=== PATIENT | female | born 1980 | race Caucasian/White ===

== ENCOUNTER 2016-10-24 13:51 | Inpatient (IN) | payer OTHER ==
[2016-10-24 14:40] VITALS: BMI 21.7
[2016-10-24] MEDS ORDERED: MAGNESIUM HYDROX 2400MG/30ML ORAL SUSPENSION 30 ML CUP PO PRN (18:32)
[2016-10-24] MEDS ORDERED: MENTHOL/PHENOL 1 EACH UD MM PRN (18:32)
[2016-10-24] MEDS ORDERED: MAGNESIUM CITRATE 300 ML BOTTLE PO PRN (18:32)
[2016-10-24] MEDS ORDERED: P-EPHED 60MG/TRIPROLIDI 2.5MG TABLET PO PRN (18:32)
[2016-10-24] MEDS ORDERED: NICOTINE POLACRILEX 4 MG GUM BC PRN (18:32)
[2016-10-24] MEDS ORDERED: ACETAMINOPHEN 325 MG TABLET (FP) PO PRN (18:32)
[2016-10-24] MEDS ORDERED: LOPERAMIDE HCL 2 MG CAPSULE PO PRN (18:32)
[2016-10-24] MEDS ORDERED: MAG HYDROX/AL HYDROX/SIMETH 30 ML UNIT-DOSE CUP PO PRN (18:32)
[2016-10-24] MEDS ORDERED: hydrOXYzine PAMOATE 50 MG CAPSULE (FP) PO PRN (18:32)
[2016-10-24] MEDS ORDERED: guaiFENesin/D-METHORPHAN HB 10 ML UNIT-DOSE CUPS PO PRN (18:32)
--- NOTE | 2016-10-24 18:32 | HP ---
Admission [facility] Chief Complaint: WITHDRAWAL SX COMPLETED INTERFATE DETOX COMPLETED 10/14/16 Allergies/Adverse Reactions: Allergies Allergy/AdvReac Type Severity Reaction Status Date / Time No Known Allergies Allergy Verified 10/24/16 16:51 History of Present Illness: 35 YEARS OLD FEMALE WITH LONG HISTORY OF ALCOHOL, OPIATE XANAX NICOTINE DEPENDENCE HAS HEPATITIS C IS ADMITTED TO REHAB Exam Limitations: No Limitations - Ebola screening Have you traveled outside of the country in the last 21 days: No Have you had contact with anyone from an Ebola affected area: No Have you been sick,other than usual withdrawal symptoms: Yes Do you have a fever: No - Review of Systems Constitutional: Weight Stable EENT: reports: No Symptoms Reported Respiratory: reports: No Symptoms reported Cardiac: reports: No Symptoms Reported GI: reports: No Symptoms Reported : reports: No Symptoms Reported Musculoskeletal: reports: No Symptoms Reported Integumentary: reports: No Symptoms Reported Neuro: reports: No Symptoms reported Endocrine: reports: No Symptoms Reported Hematology: reports: No Symptoms Reported Psychiatric: reports: Judgement Intact, Mood/Affect Appropiate, Orientated x3 Other Systems: Reviewed and Negative Patient History - Patient Medical History Hx Anemia: Yes (No meds.; tries to manage through diet.) Hx Asthma: No Hx Chronic Obstructive Pulmonary Disease (COPD): No Hx Cancer: No Hx Cardiac Disorders: No Hx Congestive Heart Failure: No Hx Hypertension: No Hx Hypercholesterolemia: No Hx Pacemaker: No HX Cerebrovascular Accident: No Hx Seizures: Yes (drug related once in 07/2016) Hx Dementia: No Hx Diabetes: No Hx Gastrointestinal Disorders: No Hx Liver Disease: Yes (Hep C, Treated 2005, but relapsed after.) Hx Genitourinary Disorders: No Hx Sexually Transmitted Disorders: No Hx Renal Disease (ESRD): No Hx Thyroid Disease: No Hx Human Immunodeficiency Virus (HIV): No (Last tested: approx. 2 months ago: NEGATIVE.) Hx Hepatitis C: Yes (2005, treated with Interferon and ribavirin, relapsed after.) Hx Depression: Yes (No meds.) Hx Suicide Attempt: No (PATIENT DENIES CURRENT SI / HI.) Hx Bipolar Disorder: No Hx Schizophrenia: No - Patient Surgical History Past Surgical History: Yes Hx Neurologic Surgery: No Hx Cataract Extraction: No Hx Cardiac Surgery: No Hx Lung Surgery: No Hx Breast Surgery: No Hx Breast Biopsy: No Hx Abdominal Surgery: No Hx Appendectomy: No Hx Cholecystectomy: No Hx Genitourinary Surgery: No Hx Section: No Hx Orthopedic Surgery: Yes (lt. hand surgery tendon repair (age 17), I&D of abcesses (age 27).) Hx Hysterectomy: No Anesthesia Reaction: No - PPD History Previous Implant?: Yes Documented Results: Negative w/o proof Implanted On Prior [facility] Admission?: Yes Date: 03/28/12 Results: 0 mm PPD to be Administered?: Yes - Reproductive History Patient is a Female of Child Bearing Age (11 -55 yrs old): Yes Last Menstrual Period: 09/14/16 Patient : No - Smoking Cessation Smoking history: Current every day smoker Have you smoked in the past 12 months: Yes Aproximately how many cigarettes per day: 20 Cigars Per Day: 0 Hx Chewing Tobacco Use: No Initiated information on smoking cessation: Yes 'Breaking Loose' booklet given: 10/24/16 - Substance & Tx. History Hx Alcohol Use: Yes Hx Substance Use: Yes Substance Use Type: Alcohol, Heroin, Opiates, Tranquilizers Hx Substance Use Treatment: Yes - Substances Abused Alcohol Route: Oral Frequency: Daily Amount used: 1/2 WHISKY Age of first use: 21 Date of Last Use: 10/14/16 Alprazolam (Xanax) Route: Oral Frequency: Daily Amount used: 12 MG Age of first use: 31 Date of Last Use: 10/10/16 Family Disease History - Family Disease History Family Disease History: Diabetes: Father, Heart Disease: Grandparent (HTN.) Admission Physical Exam S - Vital Signs Vital Signs: Vital Signs - 24 hr 10/24/16 14:33 Temperature 97.1 F L Pulse Rate 99 H Respiratory 20 Rate Blood Pressure 111/72 - Physical General Appearance: Yes: Nourished, Appropriately Dressed HEENTM: Yes: Hearing grossly Normal, Normal ENT Inspection, Normocephalic, Normal Voice Respiratory: Yes: Chest Non-Tender, Lungs Clear, Normal Breath Sounds, No Respiratory Distress, No Accessory Muscle Use Neck: Yes: Supple, Trachea in good position Breast: Yes: Breasts Symetrical Cardiology: Yes: Regular Rhythm, Regular Rate, S1, S2 Abdominal: Yes: Non Tender, Soft Genitourinary: Yes: Within Normal Limits Back: Yes: Normal Inspection Musculoskeletal: Yes: full range of Motion, Gait Steady Extremities: Yes: Normal Inspection, Normal Range of Motion, Non-Tender Neurological: Yes: Fully Oriented, Alert, Motor Strength 5/5, Normal Mood/Affect , Normal Response Integumentary: Yes: Warm Lymphatic: Yes: Within Normal Limits - Diagnostic (1) Alcohol dependence with uncomplicated withdrawal Current Visit: Yes Status: Acute (2) Hep C w/o coma, chronic Current Visit: Yes Status: Chronic (3) Nicotine dependence Current Visit: Yes Status: Chronic Qualifiers: Nicotine product type: cigarettes Substance use status: in withdrawal Qualified Code(s): F17.213 - Nicotine dependence, cigarettes, with withdrawal (4) Encounter for monitoring Suboxone maintenance therapy Current Visit: Yes Status: Acute Comment: 8-2 MG X 2 FILMS DAILY VERIFIED BY PHARMACY LABLE Cleared for Admission [facility] - Detox or Rehab [facility] Level of Care: Observation Bed Detox Regimen/Protocol: Not Applicable Claeared for Rehab Admission: Yes [facility] Breath Alcohol Content Breath Alcohol Content: 0 Urine Pregancy Test - Result Urine Test Results: Negative- NO Line Present Urine Drug Screen - Results Drug Screen Negative: No Urine Drug Screen Results: BZO-Benzodiazepines, MTD-Methadone
[2016-10-24] MEDS: THIAMINE HCL 100 MG TABLET (FP) PO SCH (21:06)
[2016-10-24] MEDS: traZODone HCL 50 MG TABLET (FP) PO SCH (21:06)
[2016-10-24 22:47] LABS: URINE APPEARANCE CLOUDY; URINE BILIRUBIN NEGATIVE (NEGATIVE); URINE BLOOD NEGATIVE (NEGATIVE); URINE COLOR YELLOW; URINE GLUCOSE (UA) NEGATIVE (NEGATIVE); URINE KETONE NEGATIVE (NEGATIVE); URINE NITRITE NEGATIVE (NEGATIVE); URINE PROTEIN NEGATIVE (NEGATIVE); URINE UROBILINOGEN NEGATIVE E.U./dl (0.2-1.0)
[2016-10-24 22:52] LABS: URINE LEUK ESTERASE 2+ (NEGATIVE)
[2016-10-24 22:54] LABS: URINE BACTERIA RARE /hpf (NONE SEEN); URINE HYALINE CAST 1 /lpf; URINE MUCUS RARE; URINE RBC 1 /hpf (0-3); URINE WBC 2 /hpf (3-5)
[2016-10-25] MEDS: NICOTINE 21 MG/24 HOURS TOPICAL PATCH TD SCH (10:01)
[2016-10-25] MEDS: PRENATAL VITAMINS W/ FOLIC ACID TABLET (FP) PO SCH (10:02)
[2016-10-25] MEDS: BUPRENORPHINE/NALOXONE 8 MG/2 MG FILM PACKET SL SCH (10:02)
--- NOTE | 2016-10-25 14:14 | EKG ---
Test Reason : Blood Pressure : / mmHG Vent. Rate : 072 BPM Atrial Rate : 072 BPM P-R Int : 122 ms QRS Dur : 084 ms QT Int : 392 ms P-R-T Axes : -16 072 040 degrees QTc Int : 429 ms NORMAL SINUS RHYTHM NORMAL ECG WHEN COMPARED WITH ECG OF 29-MAR-2012 11:27, NO SIGNIFICANT CHANGE WAS FOUND Confirmed by MARYANN RODRIGUEZ MD ([id number]) on 10/25/2016 2:14:11 PM Referred By: Tabitha Dee Confirmed By:MARYANN RODRIGUEZ MD
[2016-10-25 15:01] LABS: MCH 29.5 pg (25.7-33.7); MEAN CELL VOLUME 86.8 fl (80-96); MEAN PLT VOLUME 8.2 fl (7.5-11.1); PLATELET COUNT 237 K/MM3 (134-434); RDW 14.6 % (11.6-15.6); WHITE BLOOD COUNT 5.3 K/mm3 (4.0-10.0)
[2016-10-25 15:44] LABS: ALBUMIN 3.4 g/dl (3.4-5.0); ALK PHOS 61 U/L (45-117); ANION GAP 10 (8-16); BILIRUBIN,TOTAL 0.4 mg/dL (0.2-1.0); CALCIUM 8.5 mg/dL (8.5-10.1); CO2 23 mmol/L (21-32); CREATININE 0.8 mg/dL (0.55-1.02); GLUCOSE,RANDOM 106 mg/dL (74-106); SGOT/AST 15 U/L (15-37); SGPT/ALT 27 U/L (12-78); TOT PROT 7.3 g/dl (6.4-8.2)
[2016-10-25] MEDS: traZODone HCL 50 MG TABLET (FP) PO SCH (21:08)
[2016-10-25] MEDS: THIAMINE HCL 100 MG TABLET (FP) PO SCH (21:08)
[2016-10-26] MEDS: PRENATAL VITAMINS W/ FOLIC ACID TABLET (FP) PO SCH (09:51)
[2016-10-26] MEDS: NICOTINE 21 MG/24 HOURS TOPICAL PATCH TD SCH (09:52)
[2016-10-26] MEDS: BUPRENORPHINE/NALOXONE 8 MG/2 MG FILM PACKET SL SCH (09:52)
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
[2016-10-26] MEDS: diphenhydrAMINE HCL 50 MG CAPSULE PO PRN (21:11)
[2016-10-26] MEDS: traZODone HCL 50 MG TABLET (FP) PO SCH (21:11)
[2016-10-26] MEDS: THIAMINE HCL 100 MG TABLET (FP) PO SCH (21:13)
[2016-10-27] MEDS: NICOTINE 21 MG/24 HOURS TOPICAL PATCH TD SCH (09:48)
[2016-10-27] MEDS: BUPRENORPHINE/NALOXONE 8 MG/2 MG FILM PACKET SL SCH (09:48)
[2016-10-27] MEDS: PRENATAL VITAMINS W/ FOLIC ACID TABLET (FP) PO SCH (09:48)
[2016-10-27] MEDS: diphenhydrAMINE HCL 50 MG CAPSULE PO PRN (21:19)
[2016-10-27] MEDS: THIAMINE HCL 100 MG TABLET (FP) PO SCH (21:19)
[2016-10-27] MEDS: traZODone HCL 50 MG TABLET (FP) PO SCH (21:19)
[2016-10-28] MEDS: NICOTINE 21 MG/24 HOURS TOPICAL PATCH TD SCH (09:53)
[2016-10-28] MEDS: PRENATAL VITAMINS W/ FOLIC ACID TABLET (FP) PO SCH (09:53)
[2016-10-28] MEDS: IBUPROFEN 400 MG TABLET (FP) PO PRN (09:53)
[2016-10-28] MEDS: BUPRENORPHINE/NALOXONE 8 MG/2 MG FILM PACKET SL SCH (09:53)
[2016-10-28] MEDS ORDERED: PT OWN MED DRAWER 7, Y5N ONE (16:10)
[2016-10-28] MEDS: traZODone HCL 50 MG TABLET (FP) PO SCH (21:07)
[2016-10-28] MEDS: THIAMINE HCL 100 MG TABLET (FP) PO SCH (21:07)
[2016-10-29] MEDS: NICOTINE 21 MG/24 HOURS TOPICAL PATCH TD SCH (10:00)
[2016-10-29] MEDS: PRENATAL VITAMINS W/ FOLIC ACID TABLET (FP) PO SCH (10:00)
[2016-10-29] MEDS: BUPRENORPHINE/NALOXONE 8 MG/2 MG FILM PACKET SL SCH (10:00)
[2016-10-29] MEDS: IBUPROFEN 400 MG TABLET (FP) PO PRN (10:02)
[2016-10-29] MEDS: THIAMINE HCL 100 MG TABLET (FP) PO SCH (21:02)
[2016-10-29] MEDS: traZODone HCL 50 MG TABLET (FP) PO SCH (21:03)
[2016-10-29] MEDS: diphenhydrAMINE HCL 50 MG CAPSULE PO PRN (21:04)
[2016-10-30] MEDS: PRENATAL VITAMINS W/ FOLIC ACID TABLET (FP) PO SCH (09:57)
[2016-10-30] MEDS: NICOTINE 21 MG/24 HOURS TOPICAL PATCH TD SCH (09:58)
[2016-10-30] MEDS: BUPRENORPHINE/NALOXONE 8 MG/2 MG FILM PACKET SL SCH (09:58)
[2016-10-30] MEDS: THIAMINE HCL 100 MG TABLET (FP) PO SCH (21:11)
[2016-10-30] MEDS: traZODone HCL 50 MG TABLET (FP) PO SCH (21:11)
[2016-10-30] MEDS: diphenhydrAMINE HCL 50 MG CAPSULE PO PRN (21:12)
[2016-10-30] MEDS ORDERED: PT OWN MED DRAWER 7, Y5N ONE (21:56)
[2016-10-31] MEDS: NICOTINE 21 MG/24 HOURS TOPICAL PATCH TD SCH (10:24)
[2016-10-31] MEDS: BUPRENORPHINE/NALOXONE 8 MG/2 MG FILM PACKET SL SCH (10:24)
[2016-10-31] MEDS: PRENATAL VITAMINS W/ FOLIC ACID TABLET (FP) PO SCH (10:24)
[2016-10-31] MEDS: COLLOIDAL OATMEAL 1 BAR EACH TP PRN (21:12)
[2016-10-31] MEDS: THIAMINE HCL 100 MG TABLET (FP) PO SCH (21:13)
[2016-10-31] MEDS: diphenhydrAMINE HCL 50 MG CAPSULE PO PRN (21:13)
[2016-10-31] MEDS: traZODone HCL 50 MG TABLET (FP) PO SCH (21:13)
[2016-10-31] MEDS ORDERED: PT OWN MED DRAWER 7, Y5N ONE (23:11)
[2016-11-01] MEDS: NICOTINE 14 MG/24 HOURS TOPICAL PATCH TD SCH (10:05)
[2016-11-01] MEDS: BUPRENORPHINE/NALOXONE 8 MG/2 MG FILM PACKET SL SCH (10:05)
[2016-11-01] MEDS: PRENATAL VITAMINS W/ FOLIC ACID TABLET (FP) PO SCH (10:05)
[2016-11-01] MEDS: traZODone HCL 50 MG TABLET (FP) PO SCH (21:10)
[2016-11-01] MEDS: THIAMINE HCL 100 MG TABLET (FP) PO SCH (21:10)
[2016-11-01] MEDS: diphenhydrAMINE HCL 50 MG CAPSULE PO PRN (21:11)
[2016-11-01] MEDS ORDERED: PT OWN MED DRAWER 7, Y5N ONE (23:41)
[2016-11-02] MEDS: BUPRENORPHINE/NALOXONE 8 MG/2 MG FILM PACKET SL SCH (10:02)
[2016-11-02] MEDS: NICOTINE 14 MG/24 HOURS TOPICAL PATCH TD SCH (10:02)
[2016-11-02] MEDS: PRENATAL VITAMINS W/ FOLIC ACID TABLET (FP) PO SCH (10:02)
[2016-11-02] MEDS ORDERED: PT OWN MED DRAWER 7, Y5N ONE ×2 (12:12→23:29)
[2016-11-02] MEDS: traZODone HCL 50 MG TABLET (FP) PO SCH (21:12)
[2016-11-02] MEDS: THIAMINE HCL 100 MG TABLET (FP) PO SCH (21:12)
[2016-11-02] MEDS: diphenhydrAMINE HCL 50 MG CAPSULE PO PRN (21:12)
[2016-11-03] MEDS: NICOTINE 14 MG/24 HOURS TOPICAL PATCH TD SCH (09:37)
[2016-11-03] MEDS: BUPRENORPHINE/NALOXONE 8 MG/2 MG FILM PACKET SL SCH (09:37)
[2016-11-03] MEDS: PRENATAL VITAMINS W/ FOLIC ACID TABLET (FP) PO SCH (09:37)
[2016-11-03] MEDS: THIAMINE HCL 100 MG TABLET (FP) PO SCH (21:02)
[2016-11-03] MEDS: traZODone HCL 50 MG TABLET (FP) PO SCH (21:02)
[2016-11-03] MEDS: diphenhydrAMINE HCL 50 MG CAPSULE PO PRN (21:03)
[2016-11-04] MEDS: PRENATAL VITAMINS W/ FOLIC ACID TABLET (FP) PO SCH (09:45)
[2016-11-04] MEDS: NICOTINE 14 MG/24 HOURS TOPICAL PATCH TD SCH (09:45)
[2016-11-04] MEDS: BUPRENORPHINE/NALOXONE 8 MG/2 MG FILM PACKET SL SCH (09:46)
[2016-11-04] MEDS: THIAMINE HCL 100 MG TABLET (FP) PO SCH (21:02)
[2016-11-04] MEDS: diphenhydrAMINE HCL 50 MG CAPSULE PO PRN (21:02)
[2016-11-04] MEDS: traZODone HCL 50 MG TABLET (FP) PO SCH (21:02)
[2016-11-05] MEDS: PRENATAL VITAMINS W/ FOLIC ACID TABLET (FP) PO SCH (09:39)
[2016-11-05] MEDS: NICOTINE 14 MG/24 HOURS TOPICAL PATCH TD SCH (09:40)
[2016-11-05] MEDS: BUPRENORPHINE/NALOXONE 8 MG/2 MG FILM PACKET SL SCH (09:40)
[2016-11-05] MEDS: traZODone HCL 50 MG TABLET (FP) PO SCH (21:06)
[2016-11-05] MEDS: THIAMINE HCL 100 MG TABLET (FP) PO SCH (21:07)
[2016-11-05] MEDS: diphenhydrAMINE HCL 50 MG CAPSULE PO PRN (21:07)
[2016-11-06] MEDS: NICOTINE 14 MG/24 HOURS TOPICAL PATCH TD SCH (09:55)
[2016-11-06] MEDS: BUPRENORPHINE/NALOXONE 8 MG/2 MG FILM PACKET SL SCH (09:55)
[2016-11-06] MEDS: PRENATAL VITAMINS W/ FOLIC ACID TABLET (FP) PO SCH (09:55)
[2016-11-06] MEDS: THIAMINE HCL 100 MG TABLET (FP) PO SCH (21:02)
[2016-11-06] MEDS: traZODone HCL 50 MG TABLET (FP) PO SCH (21:02)
[2016-11-06] MEDS: diphenhydrAMINE HCL 50 MG CAPSULE PO PRN (21:03)
[2016-11-07] MEDS: NICOTINE 14 MG/24 HOURS TOPICAL PATCH TD SCH (09:56)
[2016-11-07] MEDS: PRENATAL VITAMINS W/ FOLIC ACID TABLET (FP) PO SCH (09:56)
[2016-11-07] MEDS: BUPRENORPHINE/NALOXONE 8 MG/2 MG FILM PACKET SL SCH (09:56)
[2016-11-07] MEDS: COLLOIDAL OATMEAL 1 BAR EACH TP PRN (12:44)
[2016-11-07] MEDS: diphenhydrAMINE HCL 50 MG CAPSULE PO PRN (21:01)
[2016-11-07] MEDS: traZODone HCL 50 MG TABLET (FP) PO SCH (21:01)
[2016-11-07] MEDS: THIAMINE HCL 100 MG TABLET (FP) PO SCH (21:01)
[2016-11-08] MEDS: NICOTINE 14 MG/24 HOURS TOPICAL PATCH TD SCH (09:53)
[2016-11-08] MEDS: BUPRENORPHINE/NALOXONE 8 MG/2 MG FILM PACKET SL SCH (09:54)
[2016-11-08] MEDS: PRENATAL VITAMINS W/ FOLIC ACID TABLET (FP) PO SCH (09:54)
[2016-11-08] MEDS: traZODone HCL 50 MG TABLET (FP) PO SCH (21:04)
[2016-11-08] MEDS: THIAMINE HCL 100 MG TABLET (FP) PO SCH (21:05)
[2016-11-08] MEDS: diphenhydrAMINE HCL 50 MG CAPSULE PO PRN (21:05)
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
[2016-11-09] MEDS: PRENATAL VITAMINS W/ FOLIC ACID TABLET (FP) PO SCH (10:13)
[2016-11-09] MEDS: NICOTINE 14 MG/24 HOURS TOPICAL PATCH TD SCH (10:13)
[2016-11-09] MEDS: BUPRENORPHINE/NALOXONE 8 MG/2 MG FILM PACKET SL SCH (10:14)
[2016-11-09] MEDS: BACITRACIN 0.9 GM PACKET TP SCH (10:14)
[2016-11-09] MEDS: diphenhydrAMINE HCL 50 MG CAPSULE PO PRN (21:09)
[2016-11-09] MEDS: THIAMINE HCL 100 MG TABLET (FP) PO SCH (21:09)
[2016-11-09] MEDS: traZODone HCL 50 MG TABLET (FP) PO SCH (21:09)
[2016-11-10] MEDS: BUPRENORPHINE/NALOXONE 8 MG/2 MG FILM PACKET SL SCH (09:51)
[2016-11-10] MEDS: NICOTINE 14 MG/24 HOURS TOPICAL PATCH TD SCH (09:51)
[2016-11-10] MEDS: BACITRACIN 0.9 GM PACKET TP SCH (09:51)
[2016-11-10] MEDS: PRENATAL VITAMINS W/ FOLIC ACID TABLET (FP) PO SCH (09:51)
[2016-11-10] MEDS: THIAMINE HCL 100 MG TABLET (FP) PO SCH (21:04)
[2016-11-10] MEDS: diphenhydrAMINE HCL 50 MG CAPSULE PO PRN (21:04)
[2016-11-10] MEDS: traZODone HCL 50 MG TABLET (FP) PO SCH (21:04)
[2016-11-10] MEDS ORDERED: PT OWN MED DRAWER 7, Y5N ONE (21:59)
[2016-11-11] MEDS: NICOTINE 14 MG/24 HOURS TOPICAL PATCH TD SCH (09:34)
[2016-11-11] MEDS: BUPRENORPHINE/NALOXONE 8 MG/2 MG FILM PACKET SL SCH (09:34)
[2016-11-11] MEDS: BACITRACIN 0.9 GM PACKET TP SCH (09:34)
[2016-11-11] MEDS: PRENATAL VITAMINS W/ FOLIC ACID TABLET (FP) PO SCH (09:34)
[2016-11-11] MEDS: traZODone HCL 50 MG TABLET (FP) PO SCH (21:02)
[2016-11-11] MEDS: diphenhydrAMINE HCL 50 MG CAPSULE PO PRN (21:02)
[2016-11-11] MEDS: THIAMINE HCL 100 MG TABLET (FP) PO SCH (21:02)
[2016-11-12 07:00] VITALS: BP 98/63; PULSE 61; TEMP 98.4
[2016-11-12] MEDS: BACITRACIN 0.9 GM PACKET TP SCH (09:11)
[2016-11-12] MEDS: BUPRENORPHINE/NALOXONE 8 MG/2 MG FILM PACKET SL SCH (09:12)
[2016-11-12] MEDS: PRENATAL VITAMINS W/ FOLIC ACID TABLET (FP) PO SCH (09:12)
[2016-11-12] MEDS: NICOTINE 14 MG/24 HOURS TOPICAL PATCH TD SCH (09:12)
--- NOTE | 2016-11-12 09:44 | PN ---
[id number] 61 98/63 Date of Session: 11/12/16 Chief Complaint:: Discharge visit HPI: PATIENT ADDRESSED OPIOID AND ANXIOLYTIC DEPENDENCE COMORBID WITH SUBSTANCE INDUCED MOOD DISORDER. ROS: Hep C. Current Side Effect: No Lab tests ordered: No Lab tests reviewed: Yes Provider note:: Patient completed this program today.She has met her treatment goals and will continue to address her issues on outpatient basis.Patient continues to find that Trazodone 150 mg po hs helps to reduce her sleeping difficulties,script for 30 days provided.Patient will continue Suboxone 8 mg s/ l bid.Therapy provided focusing on coping skills,support system utilization to maintain recovery. Patient is stable for discharge today. Total face to face time:: 30 Mental Status Exam - Mental Status Exam Alert and Oriented to: Time, Place, Person Cognitive Function: Grossly Intact Patient Appearance: Well Groomed Mood: Euthymic Affect: Mood Congruent Patient Behavior: Cooperative Speech Pattern: Clear Voice Loudness: Normal Thought Process: Goal Oriented Thought Disorder: Not Present Hallucinations: Denies Suicidal Ideation: Denies Homicidal Ideation: Denies Insight/Judgement: Fair Sleep: Fair Appetite: Good Muscle strength/Tone: Normal Gait/Station: Normal Psychiatric Treatment Plan - Problem List (1) Encounter for monitoring Suboxone maintenance therapy Comment: 8-2 MG X 2 FILMS DAILY VERIFIED BY PHARMACY LABLE (2) Nicotine dependence Qualifiers: Nicotine product type: cigarettes Substance use status: in withdrawal Qualified Code(s): F17.213 - Nicotine dependence, cigarettes, with withdrawal
== END 2016-11-12 09:20 | disposition home or self-care (01) | DRG 772 ==
LOC: YASAS 13:51 → Y3E 18:24
PROVIDERS: ADMIT Psychiatry & Neurology Psychiatry; ATTEND Psychiatry & Neurology Psychiatry
PROC: HZ42ZZZ Group Counseling for Substance Abuse Treatment, Cognitive-Behavioral (ICD-10-PCS; principal; 2016-11-12)
DX: F11.23 Opioid dependence with withdrawal (principal); F13.230 Sedative, hypnotic or anxiolytic dependence with withdrawal, uncomplicated; F17.213 Nicotine dependence, cigarettes, with withdrawal; F19.24 Other psychoactive substance dependence with psychoactive substance-induced mood disorder; B18.2 Chronic viral hepatitis C; Z79.899 Other long term (current) drug therapy
CPT/HCPCS: 36415; 80053; 81003; 81015; 85027; 86593; 93005; 93010

== ENCOUNTER 2017-02-07 12:34 | Inpatient (IN) | payer OTHER ==
[2017-02-07 14:06] VITALS: BMI 23.4
--- NOTE | 2017-02-07 17:53 | HP ---
COWS - Scale Resting Pulse: 1= ME 81-100 Sweatin= Chills/Flushing Restless Observation: 3= Extraneous Movement Pupil Size: 0= Normal to Room Light Bone or Joint Aches: 2= Severe Diffuse Aches Runny Nose/ Eye Tearin= Runny Nose/Eyes GI Upset > 30mins: 1= Stomach Cramp Tremor Observation: 2= Slight Tremor Visible Yawning Observation: 0= None Anxiety or Irritability: 2=Irritable/Anxious Goose Flesh Skin: 0=Smooth Skin COWS Score: 14 CIWA Score - CIWA Score Nausea/Vomitin-Mild Nausea/No Vomiting Muscle Tremors: 4-Moderate,w/Arms Extend Anxiety: 4-Mod. Anxious/Guarded Agitation: 4-Moderately Restless Paroxysmal Sweats: 1-Minimal Palms Moist Orientation: 0-Oriented Tacttile Disturbances: 0-None Auditory Disturbances: 0-None Visual Disturbances: 0-None Headache: 0-None Present CIWA-Ar Total Score: 14 Admission ROS S - HPI Chief Complaint: WITHDRAWAL SX Allergies/Adverse Reactions: Allergies Allergy/AdvReac Type Severity Reaction Status Date / Time No Known Allergies Allergy Verified 02/07/17 15:07 History of Present Illness: 36 YEARS OLD FEMALE WITH LONG HISTORY OF OPIUM COCAINE MARIJUANA XANAX NICOTINE DEPENDENCE, HAS HEPATITIS C TREATED AND DEPRESSION IS ADMITTED TO DETOX Exam Limitations: No Limitations - Ebola screening Have you traveled outside of the country in the last 21 days: No Have you had contact with anyone from an Ebola affected area: No Have you been sick,other than usual withdrawal symptoms: No Do you have a fever: No - Review of Systems Constitutional: Chills, Changes in sleep, Weight Stable Respiratory: reports: No Symptoms reported Cardiac: reports: No Symptoms Reported GI: reports: Nausea, Poor Fluid Intake, Abdominal cramping : reports: No Symptoms Reported Musculoskeletal: reports: Back Pain, Joint Pain, Muscle Pain, Neck Pain Integumentary: reports: Change in Color (LEFT WRIST) Neuro: reports: Seizure (BENZO WITHDRAWAL 2014), Tremors Endocrine: reports: No Symptoms Reported Hematology: reports: No Symptoms Reported Psychiatric: reports: Judgement Intact, Orientated x3, Anxious, Depressed Other Systems: Reviewed and Negative Patient History - Patient Medical History Hx Anemia: Yes (No meds.; tries to manage through diet.) Hx Asthma: No Hx Chronic Obstructive Pulmonary Disease (COPD): No Hx Cancer: No Hx Cardiac Disorders: No Hx Congestive Heart Failure: No Hx Hypertension: No Hx Hypercholesterolemia: No Hx Pacemaker: No HX Cerebrovascular Accident: No Hx Seizures: Yes (2014) Hx Dementia: No Hx Diabetes: No Hx Gastrointestinal Disorders: No Hx Liver Disease: Yes (Hep C, Treated 2005, but relapsed after.) Hx Genitourinary Disorders: No Hx Sexually Transmitted Disorders: No Hx Renal Disease (ESRD): No Hx Thyroid Disease: No Hx Human Immunodeficiency Virus (HIV): No (Last tested: approx. 2 months ago: NEGATIVE.) Hx Hepatitis C: Yes (2005, treated with Interferon and ribavirin, relapsed after.) Hx Depression: Yes Hx Suicide Attempt: No Hx Bipolar Disorder: No Hx Schizophrenia: No - Patient Surgical History Past Surgical History: Yes Hx Neurologic Surgery: No Hx Cataract Extraction: No Hx Cardiac Surgery: No Hx Lung Surgery: No Hx Breast Surgery: No Hx Breast Biopsy: No Hx Abdominal Surgery: No Hx Appendectomy: No Hx Cholecystectomy: No Hx Genitourinary Surgery: No Hx Section: No Hx Orthopedic Surgery: Yes (lt. hand surgery tendon repair (age 17), I&D of abcesses (age 27).) Hx Hysterectomy: No Anesthesia Reaction: No - PPD History Previous Implant?: Yes Documented Results: Positive w/proof Implanted On Prior [facility] Admission?: Yes Date: 10/26/16 Results: 0 mm PPD to be Administered?: No - Reproductive History Patient is a Female of Child Bearing Age (11 -55 yrs old): Yes Last Menstrual Period: 01/23/17 Patient : No - Smoking Cessation Smoking history: Current every day smoker Have you smoked in the past 12 months: Yes Aproximately how many cigarettes per day: 10 Cigars Per Day: 0 Hx Chewing Tobacco Use: No Initiated information on smoking cessation: Yes 'Breaking Loose' booklet given: 02/07/17 - Substance & Tx. History Hx Alcohol Use: No Hx Substance Use: Yes Substance Use Type: Cocaine, Heroin, Marijuana, Tranquilizers Hx Substance Use Treatment: Yes [facility] - Substances Abused Heroin Route: Injection Frequency: Daily Amount used: 10 bags Age of first use: 21 Date of Last Use: 02/07/17 Cocaine Route: Injection Frequency: 3-6 times per week Amount used: $20 Age of first use: 21 Date of Last Use: 02/07/17 Alcohol Route: Oral Frequency: 3-6 times per week Amount used: bulmaro(1/2 -1 pint)/beer(2-4 cans-12 oz) Age of first use: 21 Date of Last Use: 02/07/17 Alprazolam (Xanax) Route: Oral Frequency: Daily Amount used: 6 MG Age of first use: 32 Date of Last Use: 02/07/17 Family Disease History - Family Disease History Family Disease History: Diabetes: Father, Heart Disease: Grandparent (HTN.) Admission Physical Exam [facility] - Vital Signs Vital Signs: Vital Signs - 24 hr 02/07/17 14:03 Temperature 96.0 F L Pulse Rate 83 Respiratory 18 Rate Blood Pressure 94/66 - Physical General Appearance: Yes: Appropriately Dressed, Mild Distress, Thin, Tremorous, Irritable, Sweating, Anxious HEENTM: Yes: Hearing grossly Normal, Normal ENT Inspection, Normocephalic, Normal Voice Respiratory: Yes: Chest Non-Tender, Lungs Clear, Normal Breath Sounds, No Respiratory Distress, No Accessory Muscle Use Neck: Yes: Supple, Trachea in good position Breast: Yes: Breasts Symetrical Cardiology: Yes: Regular Rhythm, Regular Rate, S1, S2 Abdominal: Yes: Non Tender, Soft Genitourinary: Yes: Within Normal Limits Back: Yes: Normal Inspection Musculoskeletal: Yes: full range of Motion, Gait Steady, Back pain, Muscle Pain Extremities: Yes: Normal Range of Motion, Non-Tender, Tremors Neurological: Yes: Fully Oriented, Alert, Motor Strength 5/5, Normal Mood/Affect , Normal Response Integumentary: Yes: Warm, Track Gray Lymphatic: Yes: Within Normal Limits - Diagnostic (1) Hep C w/o coma, chronic Current Visit: Yes Status: Resolved (2) Nicotine dependence Current Visit: Yes Status: Acute Qualifiers: Nicotine product type: cigarettes Substance use status: in withdrawal Qualified Code(s): F17.213 - Nicotine dependence, cigarettes, with withdrawal (3) Opioid dependence with withdrawal Current Visit: Yes Status: Acute (4) Sedative, hypnotic or anxiolytic dependence with withdrawal, uncomplicated Current Visit: Yes Status: Acute Cleared for Admission [facility] - Detox or Rehab [facility] Level of Care: Medically Managed Detox Regimen/Protocol: Methadone/Valium [facility] Breath Alcohol Content Breath Alcohol Content: 0 Urine Pregancy Test - Result Urine Test Results: Negative- NO Line Present Urine Drug Screen - Results Drug Screen Negative: No Urine Drug Screen Results: THC-Marijuana, SANDEEP-Cocaine, OPI-Opiates, BZO- Benzodiazepines
[2017-02-07] MEDS ORDERED: guaiFENesin/D-METHORPHAN HB 10 ML UNIT-DOSE CUPS PO PRN (17:59)
[2017-02-07] MEDS ORDERED: IBUPROFEN 400 MG TABLET (FP) PO PRN (17:59)
[2017-02-07] MEDS ORDERED: MAGNESIUM HYDROX 2400MG/30ML ORAL SUSPENSION 30 ML CUP PO PRN (17:59)
[2017-02-07] MEDS ORDERED: ACETAMINOPHEN 325 MG TABLET (FP) PO PRN (17:59)
[2017-02-07] MEDS ORDERED: diazePAM 5 MG TABLET PO ONE (17:59)
[2017-02-07] MEDS ORDERED: P-EPHED 60MG/TRIPROLIDI 2.5MG TABLET PO PRN (17:59)
[2017-02-07] MEDS ORDERED: MENTHOL/PHENOL 1 EACH UD MM PRN (17:59)
[2017-02-07] MEDS ORDERED: MAGNESIUM CITRATE 300 ML BOTTLE PO PRN (17:59)
[2017-02-07] MEDS ORDERED: LOPERAMIDE HCL 2 MG CAPSULE PO PRN (17:59)
[2017-02-07] MEDS ORDERED: METHADONE HCL 10 MG TABLET (FOR DETOX USE ONLY) PO ONE ×2 (17:59→23:00)
[2017-02-07] MEDS ORDERED: MAG HYDROX/AL HYDROX/SIMETH 30 ML UNIT-DOSE CUP PO PRN (17:59)
[2017-02-07] MEDS: THIAMINE HCL 100 MG TABLET (FP) PO SCH (22:28)
[2017-02-07] MEDS: diphenhydrAMINE HCL 50 MG CAPSULE PO PRN (22:28)
[2017-02-07] MEDS: diazePAM 5 MG TABLET PO SCH (22:28)
[2017-02-07 22:56] LABS: URINE APPEARANCE SLCLOUDY; URINE BILIRUBIN NEGATIVE (NEGATIVE); URINE BLOOD NEGATIVE (NEGATIVE); URINE COLOR DKYELLOW; URINE GLUCOSE (UA) NEGATIVE (NEGATIVE); URINE KETONE NEGATIVE (NEGATIVE); URINE LEUK ESTERASE NEGATIVE (NEGATIVE); URINE NITRITE NEGATIVE (NEGATIVE); URINE PROTEIN NEGATIVE (NEGATIVE); URINE UROBILINOGEN 2.0 E.U/dl E.U./dl (0.2-1.0)
[2017-02-08] MEDS: diazePAM 5 MG TABLET PO SCH ×3 (06:27→22:55)
--- NOTE | 2017-02-08 09:46 | EKG ---
Test Reason : Blood Pressure : / mmHG Vent. Rate : 052 BPM Atrial Rate : 052 BPM P-R Int : 114 ms QRS Dur : 078 ms QT Int : 416 ms P-R-T Axes : 004 074 060 degrees QTc Int : 386 ms SINUS BRADYCARDIA WHEN COMPARED WITH ECG OF 24-OCT-2016 20:54, NO SIGNIFICANT CHANGE WAS FOUND Confirmed by CRISTIAN LEO MD ([id number]) on 02/08/2017 9:46:35 AM Referred By: Enmanuel Ledbetter Confirmed By:CRISTIAN LEO MD
[2017-02-08] MEDS ORDERED: METHADONE HCL 10 MG TABLET (FOR DETOX USE ONLY) PO SCH (10:00)
[2017-02-08 10:03] LABS: MCH 30.3 pg (25.7-33.7); MCHC 33.9 g/dl (32.0-36.0); MEAN CELL VOLUME 89.4 fl (80-96); MEAN PLT VOLUME 7.5 fl (7.5-11.1); PLATELET COUNT 253 K/MM3 (134-434); RDW 13.5 % (11.6-15.6); WHITE BLOOD COUNT 5.5 K/mm3 (4.0-10.0)
[2017-02-08 10:08] LABS: ALBUMIN 3.4 g/dl (3.4-5.0); ANION GAP 8 (8-16); CO2 29 mmol/L (21-32); SGOT/AST 20 U/L (15-37)
[2017-02-08 10:13] LABS: ALK PHOS 76 U/L (45-117); BILIRUBIN,TOTAL 0.6 mg/dL (0.2-1.0); CALCIUM 8.6 mg/dL (8.5-10.1); CREATININE 0.9 mg/dL (0.55-1.02); GLUCOSE,RANDOM 94 mg/dL (74-106); SGPT/ALT 32 U/L (12-78); TOT PROT 7.7 g/dl (6.4-8.2)
[2017-02-08] MEDS: NICOTINE 14 MG/24 HOURS TOPICAL PATCH TD SCH (10:52)
[2017-02-08] MEDS: PRENATAL VITAMINS W/ FOLIC ACID TABLET (FP) PO SCH (10:53)
[2017-02-08] MEDS: diazePAM 5 MG TABLET PO PRN ×2 (10:55→22:20)
--- NOTE | 2017-02-08 11:17 | PN ---
S CIWA - CIWA Score Nausea/Vomitin Muscle Tremors: 3 Anxiety: 3 Paroxysmal Sweats: 2 Tacttile Disturbances: 1-Very Mild Itch/Numbness Auditory Disturbances: 1-Very Mild Visual Disturbances: 1-Very Mild Sensitivity Headache: 2-Mild BHS COWS - Scale Resting Pulse: 0= [place] 80 or Below Sweatin= Chills/Flushing Restless Observation: 3= Extraneous Movement Pupil Size: 1= Pupils >than Normal Bone or Joint Aches: 2= Severe Diffuse Aches Runny Nose/ Eye Tearin= Runny Nose/Eyes GI Upset > 30mins: 2= Nausea/Diarrhea Tremor Observation of Outstretched Hands: 2= Slight Tremor Visible Yawning Observation: 1= 1-2x During Session Anxiety or Irritability: 2=Irritable/Anxious Goose Flesh Skin: 0=Smooth Skin COWS Score: 16 [facility] Progress Note (SOAP) Subjective: alert,irritable,anxious,interrupted sleep,pain in the body and back,tremor Objective: 02/08/17 11:15 Vital Signs Temperature 97.9 F 02/08/17 10:14 Pulse Rate 74 02/08/17 10:14 Respiratory Rate 18 02/08/17 10:14 Blood Pressure 120/69 02/08/17 10:14 O2 Sat by Pulse Oximetry (%) ekg nsr 02/08/17 11:16 Laboratory Last Values WBC 5.5 K/mm3 (4.0-10.0) 02/08/17 07:00 RBC 4.60 M/mm3 (3.60-5.2) 02/08/17 07:00 Hgb 13.9 GM/dL (10.7-15.3) D 02/08/17 07:00 Hct 41.1 % (32.4-45.2) D 02/08/17 07:00 MCV 89.4 fl (80-96) 02/08/17 07:00 MCHC 33.9 g/dl (32.0-36.0) 02/08/17 07:00 RDW 13.5 % (11.6-15.6) 02/08/17 07:00 Plt Count 253 K/MM3 (134-434) 02/08/17 07:00 MPV 7.5 fl (7.5-11.1) 02/08/17 07:00 Sodium 138 mmol/L (136-145) 02/08/17 07:00 Potassium 3.9 mmol/L (3.5-5.1) 02/08/17 07:00 Chloride 101 mmol/L (98-107) 02/08/17 07:00 Carbon Dioxide 29 mmol/L (21-32) D 02/08/17 07:00 Anion Gap 8 (8-16) 02/08/17 07:00 BUN 12 mg/dL (7-18) D 02/08/17 07:00 Creatinine 0.9 mg/dL (0.55-1.02) 02/08/17 07:00 Creat Clearance w eGFR > 60 (>60) 02/08/17 07:00 Random Glucose 94 mg/dL (74-106) 02/08/17 07:00 Calcium 8.6 mg/dL (8.5-10.1) 02/08/17 07:00 Total Bilirubin 0.6 mg/dL (0.2-1.0) D 02/08/17 07:00 AST 20 U/L (15-37) D 02/08/17 07:00 ALT 32 U/L (12-78) 02/08/17 07:00 Alkaline Phosphatase 76 U/L (45-117) D 02/08/17 07:00 Total Protein 7.7 g/dl (6.4-8.2) 02/08/17 07:00 Albumin 3.4 g/dl (3.4-5.0) 02/08/17 07:00 Urine Color Dkyellow 02/07/17 22:52 Urine Appearance Slcloudy 02/07/17 22:52 Urine pH 6.0 (5.0-8.0) 02/07/17 22:52 Ur Specific [place] >= 1.030 (1.005-1.025) H 02/07/17 22:52 Urine Protein Negative (NEGATIVE) 02/07/17 22:52 Urine Glucose (UA) Negative (NEGATIVE) 02/07/17 22:52 Urine Ketones Negative (NEGATIVE) 02/07/17 22:52 Urine Blood Negative (NEGATIVE) 02/07/17 22:52 Urine Nitrite Negative (NEGATIVE) 02/07/17 22:52 Urine Bilirubin Negative (NEGATIVE) 02/07/17 22:52 Urine Urobilinogen 2.0 e.u/dl E.U./dl (0.2-1.0) H 02/07/17 22:52 Ur Leukocyte Esterase Negative (NEGATIVE) 02/07/17 22:52 Assessment: 02/08/17 11:16 02/08/17 11:16 withdrawal symptom Plan: continue detox
--- NOTE | 2017-02-08 14:26 | CONSULT ---
[facility] Psychiatric Consult - Data Date of interview: 02/08/17 Admission source: [facility] Identifying data: Readmission to [facility] for this 36 y/o female seeking detox treatment for heroin,cocaine,alcohol and benzodiazepine (xanax) dependence.Patient is single without children,domiciled,unemployed and supported on food stamps. Substance Abuse History: - Smoking Cessation. Smoking history: Current every day smoker. Have you smoked in the past 12 months: Yes. Aproximately how many cigarettes per day: 10. Cigars Per Day: 0. Hx Chewing Tobacco Use: No. Initiated information on smoking cessation: Yes. 'Breaking Loose' booklet given : 02/07/17. - Substance & Tx. History. Hx Alcohol Use: No. Hx Substance Use: Yes. Substance Use Type: Cocaine, Heroin, Marijuana, Tranquilizers. Hx Substance Use Treatment: Yes (10/24-11/12/2016 [facility]). - Substances Abused. Heroin. Route: Injection. Frequency: Daily. Amount used: 10 bags. Age of first use: 21. Date of Last Use: 02/07/17. Cocaine. Route: Injection. Frequency: 3-6 times per week. Amount used: $20. Age of first use : 21. Date of Last Use: 02/07/17. Alcohol. Route: Oral. Frequency: 3-6 times per week. Amount used: bulmaro(1/2 -1 pint)/beer(2-4 cans-12 oz). Age of first use: 21. Date of Last Use: 02/07/17. Confirmed in this interview. * * Alprazolam (Xanax). Route: Oral. Frequency: Daily. Amount used: 6 MG. Age of first use: 32. Date of Last Use: 02/07/17 Medical History: Anemia,withdrawal-related seizures,hepatitis C and a history of orthosurgery for tendon repair (left hand) at age 17. Psychiatric History: No reported history of psychiatric hospitlizations.Ms Vázquez denies history of mental illness.She endorses a history of chronic insomnia for which she is prescribed trazodone 150 mg/hs.Followed at the [facility] in [facility].Patient denies history of suicide attempts. Physical/Sexual Abuse/Trauma History: Patient denies history of abuse. Additional Comment: Urine Drug Screen Results: THC-Marijuana, SANDEEP-Cocaine, OPI- Opiates, BZO-Benzodiazepines.Noted. Mental Status Exam - Mental Status Exam Alert and Oriented to: Time, Place, Person Cognitive Function: Good Patient Appearance: Disheveled Mood: Withdrawn, Anxious (mildly) Affect: Mood Congruent Patient Behavior: Appropriate, Cooperative Speech Pattern: Clear Voice Loudness: Normal Thought Process: Goal Oriented Thought Disorder: Not Present Hallucinations: Denies Suicidal Ideation: Denies Homicidal Ideation: Denies Insight/Judgement: Poor Sleep: Poorly, Difficulty falling asleep Appetite: Good Muscle strength/Tone: Normal Gait/Station: Normal Psychiatric Findings - Problem List (Warden 1, 2,3) (1) Alcohol dependence with uncomplicated withdrawal Current Visit: Yes Status: Acute (2) Opioid dependence with withdrawal Current Visit: Yes Status: Acute (3) Sedative, hypnotic or anxiolytic dependence with withdrawal, uncomplicated Current Visit: Yes Status: Acute (4) Nicotine dependence Current Visit: Yes Status: Acute Qualifiers: Nicotine product type: cigarettes Substance use status: in withdrawal Qualified Code(s): F17.213 - Nicotine dependence, cigarettes, with withdrawal (5) Substance induced mood disorder Current Visit: Yes Status: Acute (6) Hep C w/o coma, chronic Current Visit: Yes Status: Resolved (7) Insomnia Current Visit: Yes Status: Acute - Initial Treatment Plan Initial Treatment Plan: Previous records reviewed (dose of trazodone confirmed) .Psychoeducation.Detoxification.Trazodone 100 mg po hs.Ordered.Side effects/ benefits discussed with patient.She is in agreement with this careplan.Observation.
[2017-02-08] MEDS: THIAMINE HCL 100 MG TABLET (FP) PO SCH (22:19)
[2017-02-08] MEDS: diphenhydrAMINE HCL 50 MG CAPSULE PO PRN (22:20)
[2017-02-09] MEDS: diazePAM 5 MG TABLET PO SCH ×2 (10:34→22:23)
[2017-02-09] MEDS: PRENATAL VITAMINS W/ FOLIC ACID TABLET (FP) PO SCH (10:34)
[2017-02-09] MEDS: METHADONE HCL 5 MG TABLET (FOR DETOX USE ONLY) PO SCH (10:34)
[2017-02-09] MEDS: NICOTINE 14 MG/24 HOURS TOPICAL PATCH TD SCH (10:36)
[2017-02-09] MEDS: NICOTINE POLACRILEX 2 MG GUM BUC PRN ×2 (11:07→20:53)
[2017-02-09] MEDS: diazePAM 5 MG TABLET PO PRN ×2 (14:03→19:49)
--- NOTE | 2017-02-09 15:12 | PN ---
[facility] CIWA - CIWA Score Nausea/Vomitin-Mild Nausea/No Vomiting Muscle Tremors: 4-Moderate,w/Arms Extend Anxiety: 4-Mod. Anxious/Guarded Agitation: 3 Paroxysmal Sweats: 3 Orientation: 0-Oriented Tacttile Disturbances: 0-None Auditory Disturbances: 0-None Visual Disturbances: 0-None Headache: 0-None Present CIWA-Ar Total Score: 15 S COWS - Scale Resting Pulse: 1= ME 81-100 Sweatin=Flushed/Facial Moisture Restless Observation: 1= Difficult to Sit Still Pupil Size: 0= Normal to Room Light Bone or Joint Aches: 2= Severe Diffuse Aches Runny Nose/ Eye Tearin= Runny Nose/Eyes GI Upset > 30mins: 2= Nausea/Diarrhea Tremor Observation of Outstretched Hands: 2= Slight Tremor Visible Yawning Observation: 1= 1-2x During Session Anxiety or Irritability: 2=Irritable/Anxious Goose Flesh Skin: 0=Smooth Skin COWS Score: 15 [facility] Progress Note (SOAP) Subjective: Anxiety,tremors,sweating,interrupted sleep,restless,muscle aches. Objective: 02/09/17 15:10 Last Vital Signs Temp Pulse Resp BP Pulse Ox 98.7 F 87 18 107/69 02/09/17 14:50 02/09/17 14:50 02/09/17 14:50 02/09/17 14:50 Laboratory Tests 02/07/17 02/08/17 02/08/17 22:52 07:00 07:00 WBC 5.5 RBC 4.60 Hgb 13.9 D Hct 41.1 D MCV 89.4 MCHC 33.9 RDW 13.5 Plt Count 253 MPV 7.5 Sodium 138 Potassium 3.9 Chloride 101 Carbon Dioxide 29 D Anion Gap 8 BUN 12 D Creatinine 0.9 Creat Clearance w eGFR > 60 Random Glucose 94 Calcium 8.6 Total Bilirubin 0.6 D AST 20 D ALT 32 Alkaline Phosphatase 76 D Total Protein 7.7 Albumin 3.4 Urine Color Dkyellow Urine Appearance Slcloudy Urine pH 6.0 Ur Specific [place] >= 1.030 H Urine Protein Negative Urine Glucose (UA) Negative Urine Ketones Negative Urine Blood Negative Urine Nitrite Negative Urine Bilirubin Negative Urine Urobilinogen 2.0 e.u/dl H Ur Leukocyte Esterase Negative RPR Titer 02/08/17 07:00 WBC RBC Hgb Hct MCV MCHC RDW Plt Count MPV Sodium Potassium Chloride Carbon Dioxide Anion Gap BUN Creatinine Creat Clearance w eGFR Random Glucose Calcium Total Bilirubin AST ALT Alkaline Phosphatase Total Protein Albumin Urine Color Urine Appearance Urine pH Ur Specific [place] Urine Protein Urine Glucose (UA) Urine Ketones Urine Blood Urine Nitrite Urine Bilirubin Urine Urobilinogen Ur Leukocyte Esterase RPR Titer Nonreactive labs noted Assessment: 02/09/17 15:11 Withdrawal sx. Plan: Continue detox
[2017-02-09] MEDS: THIAMINE HCL 100 MG TABLET (FP) PO SCH (22:23)
[2017-02-09] MEDS: traZODone HCL 50 MG TABLET (FP) PO SCH (22:23)
[2017-02-10] MEDS: METHADONE HCL 5 MG TABLET (FOR DETOX USE ONLY) PO SCH (11:09)
[2017-02-10] MEDS: diazePAM 5 MG TABLET PO SCH ×2 (11:09→22:39)
[2017-02-10] MEDS: PRENATAL VITAMINS W/ FOLIC ACID TABLET (FP) PO SCH (11:10)
[2017-02-10] MEDS: NICOTINE 14 MG/24 HOURS TOPICAL PATCH TD SCH (11:12)
[2017-02-10] MEDS: NICOTINE POLACRILEX 2 MG GUM BUC PRN ×2 (11:12→17:36)
--- NOTE | 2017-02-10 11:49 | PN ---
[facility] Progress Note (SOAP) Subjective: Sweating, interrupted sleep, restless Objective: 02/10/17 11:47 Vital Signs 02/10/17 02/10/17 06:36 10:00 Temperature 98.2 F 97.1 F L Pulse Rate 72 83 Respiratory 18 20 Rate Blood Pressure 94/63 98/58 Laboratory Last Values WBC 5.5 K/mm3 (4.0-10.0) 02/08/17 07:00 RBC 4.60 M/mm3 (3.60-5.2) 02/08/17 07:00 Hgb 13.9 GM/dL (10.7-15.3) D 02/08/17 07:00 Hct 41.1 % (32.4-45.2) D 02/08/17 07:00 MCV 89.4 fl (80-96) 02/08/17 07:00 MCHC 33.9 g/dl (32.0-36.0) 02/08/17 07:00 RDW 13.5 % (11.6-15.6) 02/08/17 07:00 Plt Count 253 K/MM3 (134-434) 02/08/17 07:00 MPV 7.5 fl (7.5-11.1) 02/08/17 07:00 Sodium 138 mmol/L (136-145) 02/08/17 07:00 Potassium 3.9 mmol/L (3.5-5.1) 02/08/17 07:00 Chloride 101 mmol/L (98-107) 02/08/17 07:00 Carbon Dioxide 29 mmol/L (21-32) D 02/08/17 07:00 Anion Gap 8 (8-16) 02/08/17 07:00 BUN 12 mg/dL (7-18) D 02/08/17 07:00 Creatinine 0.9 mg/dL (0.55-1.02) 02/08/17 07:00 Creat Clearance w eGFR > 60 (>60) 02/08/17 07:00 Random Glucose 94 mg/dL (74-106) 02/08/17 07:00 Calcium 8.6 mg/dL (8.5-10.1) 02/08/17 07:00 Total Bilirubin 0.6 mg/dL (0.2-1.0) D 02/08/17 07:00 AST 20 U/L (15-37) D 02/08/17 07:00 ALT 32 U/L (12-78) 02/08/17 07:00 Alkaline Phosphatase 76 U/L (45-117) D 02/08/17 07:00 Total Protein 7.7 g/dl (6.4-8.2) 02/08/17 07:00 Albumin 3.4 g/dl (3.4-5.0) 02/08/17 07:00 Urine Color Dkyellow 02/07/17 22:52 Urine Appearance Slcloudy 02/07/17 22:52 Urine pH 6.0 (5.0-8.0) 02/07/17 22:52 Ur Specific [place] >= 1.030 (1.005-1.025) H 02/07/17 22:52 Urine Protein Negative (NEGATIVE) 02/07/17 22:52 Urine Glucose (UA) Negative (NEGATIVE) 02/07/17 22:52 Urine Ketones Negative (NEGATIVE) 02/07/17 22:52 Urine Blood Negative (NEGATIVE) 02/07/17 22:52 Urine Nitrite Negative (NEGATIVE) 02/07/17 22:52 Urine Bilirubin Negative (NEGATIVE) 02/07/17 22:52 Urine Urobilinogen 2.0 e.u/dl E.U./dl (0.2-1.0) H 02/07/17 22:52 Ur Leukocyte Esterase Negative (NEGATIVE) 02/07/17 22:52 RPR Titer Nonreactive (NONREACTIVE) 02/08/17 07:00 Labs noted Assessment: 02/10/17 11:48 Withdrawal sx Plan: Continue detox
[2017-02-10] MEDS: diazePAM 5 MG TABLET PO PRN ×2 (13:06→17:36)
[2017-02-10] MEDS: THIAMINE HCL 100 MG TABLET (FP) PO SCH (22:39)
[2017-02-10] MEDS: traZODone HCL 50 MG TABLET (FP) PO SCH (22:39)
[2017-02-10] MEDS: diphenhydrAMINE HCL 50 MG CAPSULE PO PRN (22:40)
[2017-02-11] MEDS ORDERED: METHADONE HCL 10 MG TABLET (FOR DETOX USE ONLY) PO SCH (10:00)
[2017-02-11] MEDS ORDERED: diazePAM 5 MG TABLET PO SCH (10:00)
--- NOTE | 2017-02-11 10:24 | PN ---
S Progress Note (SOAP) Subjective: ALERT,IRRITABLE,ANXIOUS,INTERRUPTED SLEEP Objective: 02/11/17 10:23 Vital Signs Temperature 97.9 F 02/11/17 06:00 Pulse Rate 78 02/11/17 06:00 Respiratory Rate 16 02/11/17 06:00 Blood Pressure 96/60 02/11/17 06:00 O2 Sat by Pulse Oximetry (%) Assessment: 02/11/17 10:23 WITHDRAWAL SYMPTOM Plan: CONTINUE DETOX,DISCHARGE IN AM
[2017-02-11] MEDS: PRENATAL VITAMINS W/ FOLIC ACID TABLET (FP) PO SCH (10:53)
[2017-02-11] MEDS: NICOTINE 14 MG/24 HOURS TOPICAL PATCH TD SCH (10:54)
[2017-02-11] MEDS: traZODone HCL 50 MG TABLET (FP) PO SCH (22:10)
[2017-02-11] MEDS: diphenhydrAMINE HCL 50 MG CAPSULE PO PRN (22:10)
[2017-02-11] MEDS: THIAMINE HCL 100 MG TABLET (FP) PO SCH (23:14)
[2017-02-12] MEDS ORDERED: METHADONE HCL 5 MG TABLET (FOR DETOX USE ONLY) PO SCH (06:00)
[2017-02-12 06:23] VITALS: BP 81/51; PULSE 65; TEMP 97.7
--- NOTE | 2017-02-12 07:04 | PN ---
S Progress Note (SOAP) Subjective: ALERT,NO COMPLAINT Objective: 02/12/17 07:03 Vital Signs Temperature 97.7 F 02/12/17 06:22 Pulse Rate 65 02/12/17 06:22 Respiratory Rate 16 02/12/17 06:22 Blood Pressure 81/51 02/12/17 06:22 O2 Sat by Pulse Oximetry (%) Assessment: 02/12/17 07:03 DETOX COMPLETED,NO WITHDRAWAL SYMPTOM Plan: DISCHARGE TODAY,FOLLOW UP WITH AFTER CARE PROGRAM ARRANGEMENT
--- NOTE | 2017-02-12 07:06 | DS ---
[facility] Detox Discharge Summary Admission Date: 02/07/17 Discharge Date: 02/12/17 - History Present History: Opioid Dependence, Sedative Dependence Additional Comments: FOLLOW UP WITH AFTER CARE PROGRAM ARRANGEMENT AND PMD FOR MEDICAL PROBLEM Pertinent Past History: NICOTINE DEPENDENCE HEPATITIS C - Physical Exam Results Vital Signs: Vital Signs Temperature 97.7 F 02/12/17 06:22 Pulse Rate 65 02/12/17 06:22 Respiratory Rate 16 02/12/17 06:22 Blood Pressure 81/51 02/12/17 06:22 O2 Sat by Pulse Oximetry (%) Pertinent Admission Physical Exam Findings: WITHDRAWAL SYMPTOM - Treatment Hospital Course: Detox Protocol Followed, Detoxed Safely, Responded well, Discharged Condition Good Patient has Accepted a Rehab Referral to: [facility]CL[facility]ED - Medication Discharge Medications: Ambulatory Orders Trazodone HCl [Desyrel -] 150 mg PO HS 10/12/16 Buprenorphine/Naloxone [Suboxone 8Mg/2Mg Sl Film -] 2 each SL DAILY 10/24/16 Trazodone HCl [Desyrel -] 150 mg PO HS #30 tablet 02/08/17 - Diagnosis (1) Insomnia Current Visit: Yes Status: Acute (2) Nicotine dependence Current Visit: Yes Status: Acute Qualifiers: Nicotine product type: cigarettes Substance use status: in withdrawal Qualified Code(s): F17.213 - Nicotine dependence, cigarettes, with withdrawal (3) Opioid dependence with withdrawal Current Visit: Yes Status: Acute (4) Sedative, hypnotic or anxiolytic dependence with withdrawal, uncomplicated Current Visit: Yes Status: Acute - AMA Did Patient Leave Against Medical Advice: No
[2017-02-12] MEDS: PRENATAL VITAMINS W/ FOLIC ACID TABLET (FP) PO SCH (10:00)
[2017-02-12] MEDS: NICOTINE 14 MG/24 HOURS TOPICAL PATCH TD SCH (10:00)
== END 2017-02-12 10:00 | disposition home or self-care (01) | DRG 773 ==
LOC: YASAS 12:34 → Y6N 15:19
PROVIDERS: ADMIT Internal Medicine; ATTEND Internal Medicine
PROC: HZ2ZZZZ Detoxification Services for Substance Abuse Treatment (ICD-10-PCS; principal; 2017-02-07)
DX: F11.23 Opioid dependence with withdrawal (principal); F13.230 Sedative, hypnotic or anxiolytic dependence with withdrawal, uncomplicated; F10.230 Alcohol dependence with withdrawal, uncomplicated; F17.213 Nicotine dependence, cigarettes, with withdrawal; F19.24 Other psychoactive substance dependence with psychoactive substance-induced mood disorder; G47.00 Insomnia, unspecified; B18.2 Chronic viral hepatitis C; Z86.69 Personal history of other diseases of the nervous system and sense organs
CPT/HCPCS: 36415; 80053; 81003; 85027; 86593; 93005; 93010

== ENCOUNTER 2017-10-27 10:14 | Inpatient (IN) | payer OTHER ==
[2017-10-27 11:17] VITALS: BMI 20.3
--- NOTE | 2017-10-27 13:45 | HP ---
COWS - Scale Resting Pulse: 1= ME 81-100 Sweatin=Flushed/Facial Moisture Restless Observation: 3= Extraneous Movement Pupil Size: 2= Moderately Dilated Bone or Joint Aches: 2= Severe Diffuse Aches Runny Nose/ Eye Tearin= Runny Nose/Eyes GI Upset > 30mins: 3= Vomiting/Diarrhea Tremor Observation: 2= Slight Tremor Visible Yawning Observation: 2= >3x During Session Anxiety or Irritability: 2=Irritable/Anxious Goose Flesh Skin: 0=Smooth Skin COWS Score: 21 CIWA Score - CIWA Score Nausea/Vomitin Muscle Tremors: 3 Anxiety: 3 Agitation: 3 Paroxysmal Sweats: 2 Orientation: 0-Oriented Tacttile Disturbances: 2-Mild Itch/Numbness/Burn Auditory Disturbances: 2-Mild Harshness/Frighten Visual Disturbances: 2-Mild Sensitivity Headache: 2-Mild CIWA-Ar Total Score: 22 Admission ROS S - HPI Chief Complaint: I NEED HELP TO STOP USING HEROIN,COCAINE,XANAX AND ALCOHOL Allergies/Adverse Reactions: Allergies Allergy/AdvReac Type Severity Reaction Status Date / Time No Known Allergies Allergy Verified 10/27/17 14:11 History of Present Illness: THIS 36 YEARS OLD FEMALE WITH HEROIN,ALCOHOL,COCAINE,XANX DEPENDENCE,SEEKING DETOX,WITHDRAWAL SYMPTOM,LAST TREATMENT [facility] 02/07/17 TO 02/12/17 [facility] HEPATITIS C TREATED ANXIETY,DEPRESSION,INSOMNIA LONGEST PERIOD OF SOBRIETY 1 YEAR Exam Limitations: No Limitations - Ebola screening Have you traveled outside of the country in the last 21 days: No (N) Have you had contact with anyone from an Ebola affected area: No Have you been sick,other than usual withdrawal symptoms: No Do you have a fever: No - Review of Systems Constitutional: Chills, Loss of Appetite, Malaise, Night Sweats, Changes in sleep, Weakness, Unintentional Wgt. Loss EENT: reports: Tearing, Nose Congestion Respiratory: reports: No Symptoms reported Cardiac: reports: No Symptoms Reported, See HPI, Chest Pain, Edema GI: reports: Diarrhea, Nausea, Vomiting, Abdominal cramping : reports: No Symptoms Reported Musculoskeletal: reports: Back Pain, Joint Pain, Muscle Pain, Joint Stiffness Integumentary: reports: Dryness Neuro: reports: Tremors Endocrine: reports: No Symptoms Reported Hematology: reports: No Symptoms Reported Psychiatric: reports: No Sypmtoms Reported, Judgement Intact, Mood/Affect Appropiate, Orientated x3 (INSOMNIA), Anxious, Depressed Patient History - Patient Medical History Hx Anemia: Yes (No meds.; tries to manage through diet.) Hx Asthma: No Hx Chronic Obstructive Pulmonary Disease (COPD): No Hx Cancer: No Hx Cardiac Disorders: No Hx Congestive Heart Failure: No Hx Hypertension: No Hx Hypercholesterolemia: No Hx Pacemaker: No HX Cerebrovascular Accident: No Hx Seizures: Yes (2014) Hx Dementia: No Hx Diabetes: No Hx Gastrointestinal Disorders: No Hx Liver Disease: Yes (Hep C, Treated 2005, but relapsed after.) Hx Genitourinary Disorders: No Hx Sexually Transmitted Disorders: No Hx Renal Disease (ESRD): No Hx Thyroid Disease: No Hx Human Immunodeficiency Virus (HIV): No (LAST 2016 NEGATIVE) Hx Hepatitis C: Yes (2005, treated with Interferon and ribavirin, relapsed after.) Hx Depression: Yes (DEPRESSION) Hx Suicide Attempt: No Hx Bipolar Disorder: No Hx Schizophrenia: No Other Medical History: INSOMNIA,NO SUCIDAL,NO HOMICIDAL - Patient Surgical History Past Surgical History: Yes Hx Neurologic Surgery: No Hx Cataract Extraction: No Hx Cardiac Surgery: No Hx Lung Surgery: No Hx Breast Surgery: No Hx Breast Biopsy: No Hx Abdominal Surgery: No Hx Appendectomy: No Hx Cholecystectomy: No Hx Genitourinary Surgery: No Hx Section: No Hx Orthopedic Surgery: Yes (lt. hand surgery tendon repair (age 17), I&D of abcesses (age 27).) Hx Hysterectomy: No Anesthesia Reaction: No - PPD History Previous Implant?: Yes Documented Results: Negative w/proof Date: 10/26/16 Results: 0 mm PPD to be Administered?: Yes - Reproductive History Patient is a Female of Child Bearing Age (11 -55 yrs old): Yes Last Menstrual Period: 10/15/17 Patient : No - Smoking Cessation Smoking history: Current every day smoker Have you smoked in the past 12 months: Yes Aproximately how many cigarettes per day: 10 Cigars Per Day: 0 Hx Chewing Tobacco Use: No Initiated information on smoking cessation: Yes 'Breaking Loose' booklet given: 10/27/17 - Substance & Tx. History Hx Alcohol Use: Yes Hx Substance Use: Yes Substance Use Type: Alcohol, Cocaine, Heroin, Tranquilizers Hx Substance Use Treatment: Yes ([facility] 02/07/17 TO 02/12/17) - Substances Abused Heroin Route: Injection Frequency: Daily Amount used: 10 BAGS TO 15 BAGS Age of first use: 24 Date of Last Use: 10/28/17 Alcohol Route: Oral Frequency: Daily Amount used: 1 PINT [place]IS[place] Age of first use: 21 Date of Last Use: 10/26/17 Cocaine Route: Injection Frequency: Daily Amount used: 40$ Age of first use: 24 Date of Last Use: 10/26/17 Alprazolam (Xanax) Route: Oral Frequency: Daily Amount used: 4 TO 6 NGS Age of first use: 34 Date of Last Use: 10/26/17 Family Disease History - Family Disease History Family Disease History: Diabetes: Father, Heart Disease: Grandparent (HTN.) Admission Physical Exam [facility] - Vital Signs Vital Signs: Vital Signs - 24 hr 10/27/17 11:15 Temperature 96.1 F L Pulse Rate 93 H Respiratory 18 Rate Blood Pressure 108/68 - Physical General Appearance: Yes: Moderate Distress, Tremorous, Irritable, Sweating, Anxious HEENTM: Yes: Hearing grossly Normal, Normal ENT Inspection, Pharynx Normal, Nasal Congestion Respiratory: Yes: Within Normal Limits, Lungs Clear, Normal Breath Sounds Neck: Yes: Within Normal Limits, Supple, Trachea in good position Breast: Yes: Breast Exam Deferred Cardiology: Yes: Within Normal Limits, Regular Rhythm, Regular Rate, S1, S2 Abdominal: Yes: Within Normal Limits, Normal Bowel Sounds, Non Tender, Flat, Soft Genitourinary: Yes: Within Normal Limits Back: Yes: Within Normal Limits, Normal Inspection, Muscle Spasm Musculoskeletal: Yes: Back pain, Muscle Pain Extremities: Yes: Within Normal Limits, Normal Range of Motion, Tremors Neurological: Yes: 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 intact, Fully Oriented, Alert, Motor Strength 5/5 Integumentary: Yes: Within Normal Limits, Dry Lymphatic: Yes: Within Normal Limits - Diagnostic (1) Opioid dependence with withdrawal Current Visit: No Status: Acute (2) Cocaine dependence Current Visit: Yes Status: Acute (3) Alcohol dependence with uncomplicated withdrawal Current Visit: No Status: Acute (4) Nicotine dependence Current Visit: No Status: Acute Qualifiers: Nicotine product type: cigarettes Substance use status: in withdrawal Qualified Code(s): F17.213 - Nicotine dependence, cigarettes, with withdrawal (5) Sedative, hypnotic or anxiolytic dependence with withdrawal, uncomplicated Current Visit: No Status: Acute (6) Weight loss Current Visit: Yes Status: Acute (7) Insomnia secondary to depression with anxiety Current Visit: Yes Status: Acute Cleared for Admission [facility] - Detox or Rehab [facility] Level of Care: Medically Managed Detox Regimen/Protocol: Methadone/Valium S Breath Alcohol Content Breath Alcohol Content: 0 Urine Pregancy Test - Result Urine Test Results: Negative- NO Line Present Urine Drug Screen - Results Drug Screen Negative: No Urine Drug Screen Results: SANDEEP-Cocaine, OPI-Opiates, BZO-Benzodiazepines, TCA- Tricyclic Antidepress
[2017-10-27] MEDS ORDERED: hydrOXYzine PAMOATE 50 MG CAPSULE (FP) PO PRN (14:04)
[2017-10-27] MEDS ORDERED: guaiFENesin/D-METHORPHAN HB 10 ML UNIT-DOSE CUPS PO PRN (14:04)
[2017-10-27] MEDS ORDERED: MAG HYDROX/AL HYDROX/SIMETH 30 ML UNIT-DOSE CUP PO PRN (14:04)
[2017-10-27] MEDS ORDERED: ACETAMINOPHEN 325 MG TABLET (FP) PO PRN (14:04)
[2017-10-27] MEDS ORDERED: IBUPROFEN 400 MG TABLET (FP) PO PRN (14:04)
[2017-10-27] MEDS ORDERED: LOPERAMIDE HCL 2 MG CAPSULE PO PRN (14:04)
[2017-10-27] MEDS ORDERED: METHADONE HCL 10 MG TABLET (FOR DETOX USE ONLY) PO ONE ×2 (14:04→23:00)
[2017-10-27] MEDS ORDERED: MENTHOL/PHENOL 1 EACH UD MM PRN (14:04)
[2017-10-27] MEDS ORDERED: MAGNESIUM HYDROX 2400MG/30ML ORAL SUSPENSION 30 ML CUP PO PRN (14:04)
[2017-10-27] MEDS ORDERED: MAGNESIUM CITRATE 300 ML BOTTLE PO PRN (14:04)
[2017-10-27] MEDS ORDERED: P-EPHED 60MG/TRIPROLIDI 2.5MG TABLET PO PRN (14:04)
[2017-10-27] MEDS ORDERED: diazePAM 5 MG TABLET PO ONE (16:30)
[2017-10-27] MEDS ORDERED: METHADONE HCL 10 MG TABLET (FOR DETOX USE ONLY) ONE (16:38)
[2017-10-27] MEDS: NICOTINE 21 MG/24 HOURS TOPICAL PATCH TD SCH (17:39)
[2017-10-27] MEDS: cloNIDine HCL 0.1 MG TABLET PO SCH (22:31)
[2017-10-27] MEDS: THIAMINE HCL 100 MG TABLET (FP) PO SCH (22:32)
[2017-10-27] MEDS: CYCLOBENZAPRINE HCL 10 MG TABLET (FP) PO PRN (22:32)
[2017-10-27] MEDS: diazePAM 5 MG TABLET PO SCH (22:32)
[2017-10-27 22:51] LABS: URINE APPEARANCE TURBID; URINE BILIRUBIN NEGATIVE (NEGATIVE); URINE BLOOD NEGATIVE (NEGATIVE); URINE COLOR AMBER; URINE GLUCOSE (UA) NEGATIVE (NEGATIVE); URINE KETONE NEGATIVE (NEGATIVE); URINE NITRITE NEGATIVE (NEGATIVE); URINE UROBILINOGEN 4.0 E.U/dl mg/dL (0.2-1.0)
[2017-10-27 22:52] LABS: URINE LEUK ESTERASE 1+ (NEGATIVE); URINE PROTEIN 1+ (NEGATIVE)
[2017-10-27 22:57] LABS: EPI CELLS MANY /HPF (FEW); URINE BACTERIA RARE /hpf (NONE SEEN); URINE MUCUS MANY
[2017-10-28] MEDS: diazePAM 5 MG TABLET PO SCH ×3 (05:49→22:13)
[2017-10-28] MEDS ORDERED: METHADONE HCL 10 MG TABLET (FOR DETOX USE ONLY) PO SCH (10:00)
[2017-10-28 10:19] LABS: HEMATOCRIT 40.4 % (32.4-45.2); HEMOGLOBIN 13.3 GM/dL (10.7-15.3); MCH 28.8 pg (25.7-33.7); MEAN CELL VOLUME 87.3 fl (80-96); MEAN PLT VOLUME 7.6 fl (7.5-11.1); PLATELET COUNT 266 K/MM3 (134-434); RBC 4.63 M/mm3 (3.60-5.2); RDW 13.8 % (11.6-15.6)
[2017-10-28 10:26] LABS: ALBUMIN 3.2 g/dl (3.4-5.0); ANION GAP 4 (8-16); BLOOD UREA NITROGEN 18 mg/dL (7-18); CALCIUM 8.5 mg/dL (8.5-10.1); CHLORIDE 106 mmol/L (98-107); CO2 30 mmol/L (21-32); GLUCOSE,RANDOM 80 mg/dL (74-106); POTASSIUM 4.4 mmol/L (3.5-5.1); SGOT/AST 15 U/L (15-37); SGPT/ALT 32 U/L (12-78); SODIUM 140 mmol/L (136-145)
[2017-10-28 10:27] LABS: ALK PHOS 87 U/L (45-117); BILIRUBIN,TOTAL 0.3 mg/dL (0.2-1.0); CREATININE 0.8 mg/dL (0.55-1.02); TOT PROT 7.3 g/dl (6.4-8.2)
--- NOTE | 2017-10-28 10:48 | PN ---
[facility] CIWA - CIWA Score Nausea/Vomitin-Mild Nausea/No Vomiting Muscle Tremors: 4-Moderate,w/Arms Extend Anxiety: 4-Mod. Anxious/Guarded Agitation: 4-Moderately Restless Paroxysmal Sweats: 1-Minimal Palms Moist Orientation: 0-Oriented Tacttile Disturbances: 2-Mild Itch/Numbness/Burn Auditory Disturbances: 0-None Visual Disturbances: 0-None Headache: 2-Mild CIWA-Ar Total Score: 18 [facility] COWS - Scale Resting Pulse: 0= ND 80 or Below Sweatin= Chills/Flushing Restless Observation: 3= Extraneous Movement Pupil Size: 1= Pupils >than Normal Bone or Joint Aches: 2= Severe Diffuse Aches Runny Nose/ Eye Tearin= Runny Nose/Eyes GI Upset > 30mins: 2= Nausea/Diarrhea Tremor Observation of Outstretched Hands: 2= Slight Tremor Visible Yawning Observation: 2= >3x During Session Anxiety or Irritability: 2=Irritable/Anxious Goose Flesh Skin: 0=Smooth Skin COWS Score: 17 [facility] Progress Note (SOAP) Subjective: joint ache sweat tremor anxiety restlessness irritable stuffy nose Objective: 10/28/17 10:47 Vital Signs Temperature 97.5 F L 10/28/17 06:00 Pulse Rate 61 10/28/17 06:00 Respiratory Rate 16 10/28/17 06:00 Blood Pressure 100/68 10/28/17 06:00 O2 Sat by Pulse Oximetry (%) Laboratory Last Values WBC 7.0 K/mm3 (4.0-10.0) 10/28/17 07:00 RBC 4.63 M/mm3 (3.60-5.2) 10/28/17 07:00 Hgb 13.3 GM/dL (10.7-15.3) 10/28/17 07:00 Hct 40.4 % (32.4-45.2) 10/28/17 07:00 MCV 87.3 fl (80-96) 10/28/17 07:00 MCH 28.8 pg (25.7-33.7) 10/28/17 07:00 MCHC 33.0 g/dl (32.0-36.0) 10/28/17 07:00 RDW 13.8 % (11.6-15.6) 10/28/17 07:00 Plt Count 266 K/MM3 (134-434) 10/28/17 07:00 MPV 7.6 fl (7.5-11.1) 10/28/17 07:00 Sodium 140 mmol/L (136-145) 10/28/17 07:00 Potassium 4.4 mmol/L (3.5-5.1) 10/28/17 07:00 Chloride 106 mmol/L (98-107) 10/28/17 07:00 Carbon Dioxide 30 mmol/L (21-32) 10/28/17 07:00 Anion Gap 4 (8-16) L 10/28/17 07:00 BUN 18 mg/dL (7-18) 10/28/17 07:00 Creatinine 0.8 mg/dL (0.55-1.02) 10/28/17 07:00 Creat Clearance w eGFR > 60 (>60) 10/28/17 07:00 Random Glucose 80 mg/dL (74-106) 10/28/17 07:00 Calcium 8.5 mg/dL (8.5-10.1) 10/28/17 07:00 Total Bilirubin 0.3 mg/dL (0.2-1.0) D 10/28/17 07:00 AST 15 U/L (15-37) 10/28/17 07:00 ALT 32 U/L (12-78) 10/28/17 07:00 Alkaline Phosphatase 87 U/L (45-117) 10/28/17 07:00 Total Protein 7.3 g/dl (6.4-8.2) 10/28/17 07:00 Albumin 3.2 g/dl (3.4-5.0) L 10/28/17 07:00 Urine Color [place] 10/27/17 22:40 Urine Appearance Turbid 10/27/17 22:40 Urine pH 5.0 (5.0-8.0) 10/27/17 22:40 Ur Specific [place] 1.025 (1.001-1.035) 10/27/17 22:40 Urine Protein 1+ (NEGATIVE) H 10/27/17 22:40 Urine Glucose (UA) Negative (NEGATIVE) 10/27/17 22:40 Urine Ketones Negative (NEGATIVE) 03/04/18 22:40 Urine Blood Negative (NEGATIVE) 10/27/17 22:40 Urine Nitrite Negative (NEGATIVE) 10/27/17 22:40 Urine Bilirubin Negative (NEGATIVE) 10/27/17 22:40 Urine Urobilinogen 4.0 e.u/dl mg/dL (0.2-1.0) H 10/27/17 22:40 Ur Leukocyte Esterase 1+ (NEGATIVE) H 10/27/17 22:40 Urine WBC (Auto) 67 /hpf (3-5) 10/27/17 22:40 Urine RBC (Auto) 9 /hpf (0-3) 10/27/17 22:40 Ur Epithelial Cells Many /HPF (FEW) 10/27/17 22:40 Urine Bacteria Rare /hpf (NONE SEEN) 10/27/17 22:40 Urine Mucus Many 10/27/17 22:40 lab noted Assessment: 10/28/17 10:47 withdrawal sx Plan: continue detox
--- NOTE | 2017-10-28 10:50 | EKG ---
Test Reason : Blood Pressure : / mmHG Vent. Rate : 061 BPM Atrial Rate : 061 BPM P-R Int : 108 ms QRS Dur : 080 ms QT Int : 420 ms P-R-T Axes : 009 077 049 degrees QTc Int : 422 ms SINUS RHYTHM WITH SHORT [place] OTHERWISE NORMAL ECG WHEN COMPARED WITH ECG OF 07-FEB-2017 17:32, NO SIGNIFICANT CHANGE WAS FOUND Confirmed by CHICA HOPPER MD ([id number]) on 10/28/2017 10:49:39 AM Referred By: Confirmed By:CHICA HOPPER MD
[2017-10-28] MEDS: PRENATAL VITAMINS W/ FOLIC ACID TABLET (FP) PO SCH (10:52)
[2017-10-28] MEDS: cloNIDine HCL 0.1 MG TABLET PO SCH ×2 (10:52→22:12)
[2017-10-28] MEDS: NICOTINE 21 MG/24 HOURS TOPICAL PATCH TD SCH (10:53)
[2017-10-28] MEDS: NICOTINE POLACRILEX 2 MG GUM BC PRN ×2 (10:53→22:15)
[2017-10-28] MEDS: diazePAM 5 MG TABLET PO PRN (10:54)
--- NOTE | 2017-10-28 17:59 | CONSULT ---
[facility] Psychiatric Consult - Data Date of interview: 10/28/17 Admission source: [facility] Identifying data: One of several admissions to [facility] for this 36 y/o female seeking detox treatment on for heroin,cocaine,alcohol and benzodiazepine (xanax) dependence.Patient is single without children, domiciled,unemployed and currently supported on a part-time job (self-report). Substance Abuse History: Confirmed by patient in this session.See current [facility] report for details : Smoking history: Current every day smoker. Have you smoked in the past 12 months: Yes. Aproximately how many cigarettes per day: 10. Cigars Per Day: 0. Hx Chewing Tobacco Use: No. Initiated information on smoking cessation: Yes. 'Breaking Loose' booklet given: 10/27/17. - Substance & Tx. History. Hx Alcohol Use: Yes. Hx Substance Use: Yes. Substance Use Type : Alcohol, Cocaine, Heroin, Tranquilizers. Hx Substance Use Treatment: Yes ( [facility] 02/07/17 TO 02/12/17). - Substances Abused. Heroin. Route: Injection. Frequency: Daily. Amount used: 10 BAGS TO 15 BAGS. Age of first use: 24. Date of Last Use: 10/28/17. Alcohol. Route: Oral. Frequency: Daily. Amount used: 1 PINT [place] WHISKEY. Age of first use: 21. Date of Last Use : 10/26/17. Cocaine. Route: Injection. Frequency: Daily. Amount used: 40$ . Age of first use: 24. Date of Last Use: 10/26/17. Alprazolam (Xanax). Route: Oral. Frequency: Daily. Amount used: 4 TO 6 NGS. Age of first use: 34. Date of Last Use: 10/26/17 Medical History: History of dislocated discs (lumbar spine),lower back pain, anemia,withdrawal-related seizures,hepatitis C and a history of orthosurgery for tendon repair (left hand) at age 17. Psychiatric History: Patient admits to a history of one psychiatric hospitalization at age 17 ([facility] They said that I had mood swings." Ms Vázquez denies having a psychiatric diagnosis at this time.No longer in contact with [facility].No OPD care.She sporadically gets scripts for seroquel or trazodone from various providers.Patient denies history of suicide attempts. Physical/Sexual Abuse/Trauma History: Patient denies history of abuse. Additional Comment: Urine Drug Screen Results: SANDEEP-Cocaine, OPI-Opiates, BZO- Benzodiazepines, TCA-Tricyclic Antidepressant.Noted. Mental Status Exam - Mental Status Exam Alert and Oriented to: Time, Place, Person Cognitive Function: Good Patient Appearance: Well Groomed Mood: Nervous, Anxious Affect: Mood Congruent Patient Behavior: Talkative, Cooperative Speech Pattern: Clear, Appropriate Voice Loudness: Normal Thought Process: Goal Oriented Thought Disorder: Not Present Hallucinations: Denies Suicidal Ideation: Denies Homicidal Ideation: Denies Insight/Judgement: Poor Sleep: Poorly, Difficulty falling asleep Appetite: Good Muscle strength/Tone: Normal Gait/Station: Normal Psychiatric Findings - Problem List ([place] 1, 2,3) (1) Alcohol dependence with uncomplicated withdrawal Current Visit: Yes Status: Acute (2) Cocaine dependence Current Visit: Yes Status: Acute (3) Opioid dependence with withdrawal Current Visit: Yes Status: Acute (4) Sedative, hypnotic or anxiolytic dependence with withdrawal, uncomplicated Current Visit: Yes Status: Acute (5) Nicotine dependence Current Visit: Yes Status: Acute Qualifiers: Nicotine product type: cigarettes Substance use status: in withdrawal Qualified Code(s): F17.213 - Nicotine dependence, cigarettes, with withdrawal (6) Substance induced mood disorder Current Visit: Yes Status: Acute (7) Insomnia Current Visit: Yes Status: Acute - Initial Treatment Plan Initial Treatment Plan: Psychoeducation.Sleep hygiene.Detoxification in progress.Patient declines to resume trazodone and expresses preference for seroquel.Ordered as 50 mg po hs.Side effects/benefits,which include the risk of oversedation,abnormal involuntary movements,cardiovascular adverse events and metabolic syndrome,are discussed with patient who endorses this medication as effective and well tolerated in the past.Consent (verbal) given.Observation.
[2017-10-28] MEDS ORDERED: QUEtiapine FUMARATE 100 MG TABLET (FP) PO SCH (22:00)
[2017-10-28] MEDS: THIAMINE HCL 100 MG TABLET (FP) PO SCH (22:12)
[2017-10-28] MEDS: CYCLOBENZAPRINE HCL 10 MG TABLET (FP) PO PRN (22:12)
[2017-10-28] MEDS: QUEtiapine FUMARATE 50 MG TABLET PO SCH (22:13)
--- NOTE | 2017-10-29 10:02 | PN ---
[facility] CIWA - CIWA Score Nausea/Vomitin-Mild Nausea/No Vomiting Muscle Tremors: 4-Moderate,w/Arms Extend Anxiety: 4-Mod. Anxious/Guarded Agitation: 4-Moderately Restless Paroxysmal Sweats: 1-Minimal Palms Moist Orientation: 0-Oriented Tacttile Disturbances: 1-Very Mild Itch/Numbness Auditory Disturbances: 0-None Visual Disturbances: 0-None Headache: 0-None Present CIWA-Ar Total Score: 15 S COWS - Scale Resting Pulse: 0= OR 80 or Below Sweatin= Chills/Flushing Restless Observation: 3= Extraneous Movement Pupil Size: 0= Normal to Room Light Bone or Joint Aches: 2= Severe Diffuse Aches Runny Nose/ Eye Tearin= Runny Nose/Eyes GI Upset > 30mins: 2= Nausea/Diarrhea Tremor Observation of Outstretched Hands: 2= Slight Tremor Visible Yawning Observation: 1= 1-2x During Session Anxiety or Irritability: 2=Irritable/Anxious Goose Flesh Skin: 0=Smooth Skin COWS Score: 15 [facility] Progress Note (SOAP) Subjective: body aches sweat tremor anxiety restlessness running nose Objective: 10/29/17 10:02 Vital Signs Temperature 98.1 F 10/28/17 22:59 Pulse Rate 72 10/28/17 22:59 Respiratory Rate 18 10/29/17 03:30 Blood Pressure 98/69 10/28/17 22:59 O2 Sat by Pulse Oximetry (%) Laboratory Last Values WBC 7.0 K/mm3 (4.0-10.0) 10/28/17 07:00 RBC 4.63 M/mm3 (3.60-5.2) 10/28/17 07:00 Hgb 13.3 GM/dL (10.7-15.3) 10/28/17 07:00 Hct 40.4 % (32.4-45.2) 10/28/17 07:00 MCV 87.3 fl (80-96) 10/28/17 07:00 MCH 28.8 pg (25.7-33.7) 10/28/17 07:00 MCHC 33.0 g/dl (32.0-36.0) 10/28/17 07:00 RDW 13.8 % (11.6-15.6) 10/28/17 07:00 Plt Count 266 K/MM3 (134-434) 10/28/17 07:00 MPV 7.6 fl (7.5-11.1) 10/28/17 07:00 Sodium 140 mmol/L (136-145) 10/28/17 07:00 Potassium 4.4 mmol/L (3.5-5.1) 10/28/17 07:00 Chloride 106 mmol/L (98-107) 10/28/17 07:00 Carbon Dioxide 30 mmol/L (21-32) 10/28/17 07:00 Anion Gap 4 (8-16) L 10/28/17 07:00 BUN 18 mg/dL (7-18) 10/28/17 07:00 Creatinine 0.8 mg/dL (0.55-1.02) 10/28/17 07:00 Creat Clearance w eGFR > 60 (>60) 10/28/17 07:00 Random Glucose 80 mg/dL (74-106) 10/28/17 07:00 Calcium 8.5 mg/dL (8.5-10.1) 10/28/17 07:00 Total Bilirubin 0.3 mg/dL (0.2-1.0) D 10/28/17 07:00 AST 15 U/L (15-37) 10/28/17 07:00 ALT 32 U/L (12-78) 10/28/17 07:00 Alkaline Phosphatase 87 U/L (45-117) 10/28/17 07:00 Total Protein 7.3 g/dl (6.4-8.2) 10/28/17 07:00 Albumin 3.2 g/dl (3.4-5.0) L 10/28/17 07:00 Urine Color Lorie 10/27/17 22:40 Urine Appearance Turbid 10/27/17 22:40 Urine pH 5.0 (5.0-8.0) 10/27/17 22:40 Ur Specific [place] 1.025 (1.001-1.035) 10/27/17 22:40 Urine Protein 1+ (NEGATIVE) H 10/27/17 22:40 Urine Glucose (UA) Negative (NEGATIVE) 10/27/17 22:40 Urine Ketones Negative (NEGATIVE) 10/27/17 22:40 Urine Blood Negative (NEGATIVE) 10/27/17 22:40 Urine Nitrite Negative (NEGATIVE) 10/27/17 22:40 Urine Bilirubin Negative (NEGATIVE) 10/27/17 22:40 Urine Urobilinogen 4.0 e.u/dl mg/dL (0.2-1.0) H 10/27/17 22:40 Ur Leukocyte Esterase 1+ (NEGATIVE) H 10/27/17 22:40 Urine WBC (Auto) 67 /hpf (3-5) 10/27/17 22:40 Urine RBC (Auto) 9 /hpf (0-3) 10/27/17 22:40 Ur Epithelial Cells Many /HPF (FEW) 10/27/17 22:40 Urine Bacteria Rare /hpf (NONE SEEN) 10/27/17 22:40 Urine Mucus Many 10/27/17 22:40 RPR Titer Nonreactive (NONREACTIVE) 10/28/17 07:00 lab noted gu asymptomatic Assessment: 10/29/17 10:03 withdrawal sx Plan: continue detox
[2017-10-29] MEDS: METHADONE HCL 5 MG TABLET (FOR DETOX USE ONLY) PO SCH (10:35)
[2017-10-29] MEDS: cloNIDine HCL 0.1 MG TABLET PO SCH ×2 (10:35→22:23)
[2017-10-29] MEDS: PRENATAL VITAMINS W/ FOLIC ACID TABLET (FP) PO SCH (10:35)
[2017-10-29] MEDS: NICOTINE 21 MG/24 HOURS TOPICAL PATCH TD SCH (10:35)
[2017-10-29] MEDS: diazePAM 5 MG TABLET PO SCH ×2 (10:35→22:24)
[2017-10-29] MEDS: diazePAM 5 MG TABLET PO PRN ×2 (14:25→19:19)
[2017-10-29] MEDS: NICOTINE POLACRILEX 2 MG GUM BC PRN ×2 (14:26→19:19)
[2017-10-29] MEDS: QUEtiapine FUMARATE 50 MG TABLET PO SCH (22:24)
[2017-10-29] MEDS: THIAMINE HCL 100 MG TABLET (FP) PO SCH (22:24)
--- NOTE | 2017-10-30 10:08 | PN ---
[facility] Progress Note (SOAP) Subjective: general body ache sweat tremor restlessness irritable anxiety Objective: 10/30/17 10:05 Vital Signs Temperature 98.4 F 10/29/17 22:39 Pulse Rate 91 H 10/29/17 22:39 Respiratory Rate 18 10/30/17 03:30 Blood Pressure 94/67 10/29/17 22:39 O2 Sat by Pulse Oximetry (%) Laboratory Last Values WBC 7.0 K/mm3 (4.0-10.0) 10/28/17 07:00 RBC 4.63 M/mm3 (3.60-5.2) 10/28/17 07:00 Hgb 13.3 GM/dL (10.7-15.3) 10/28/17 07:00 Hct 40.4 % (32.4-45.2) 10/28/17 07:00 MCV 87.3 fl (80-96) 10/28/17 07:00 MCH 28.8 pg (25.7-33.7) 10/28/17 07:00 MCHC 33.0 g/dl (32.0-36.0) 10/28/17 07:00 RDW 13.8 % (11.6-15.6) 10/28/17 07:00 Plt Count 266 K/MM3 (134-434) 10/28/17 07:00 MPV 7.6 fl (7.5-11.1) 10/28/17 07:00 Sodium 140 mmol/L (136-145) 10/28/17 07:00 Potassium 4.4 mmol/L (3.5-5.1) 10/28/17 07:00 Chloride 106 mmol/L (98-107) 10/28/17 07:00 Carbon Dioxide 30 mmol/L (21-32) 10/28/17 07:00 Anion Gap 4 (8-16) L 10/28/17 07:00 BUN 18 mg/dL (7-18) 10/28/17 07:00 Creatinine 0.8 mg/dL (0.55-1.02) 10/28/17 07:00 Creat Clearance w eGFR > 60 (>60) 10/28/17 07:00 Random Glucose 80 mg/dL (74-106) 10/28/17 07:00 Calcium 8.5 mg/dL (8.5-10.1) 10/28/17 07:00 Total Bilirubin 0.3 mg/dL (0.2-1.0) D 10/28/17 07:00 AST 15 U/L (15-37) 10/28/17 07:00 ALT 32 U/L (12-78) 10/28/17 07:00 Alkaline Phosphatase 87 U/L (45-117) 10/28/17 07:00 Total Protein 7.3 g/dl (6.4-8.2) 10/28/17 07:00 Albumin 3.2 g/dl (3.4-5.0) L 10/28/17 07:00 Urine Color Lorie 10/27/17 22:40 Urine Appearance Turbid 10/27/17 22:40 Urine pH 5.0 (5.0-8.0) 10/27/17 22:40 Ur Specific [place] 1.025 (1.001-1.035) 10/27/17 22:40 Urine Protein 1+ (NEGATIVE) H 10/27/17 22:40 Urine Glucose (UA) Negative (NEGATIVE) 10/27/17 22:40 Urine Ketones Negative (NEGATIVE) 10/27/17 22:40 Urine Blood Negative (NEGATIVE) 10/27/17 22:40 Urine Nitrite Negative (NEGATIVE) 10/27/17 22:40 Urine Bilirubin Negative (NEGATIVE) 10/27/17 22:40 Urine Urobilinogen 4.0 e.u/dl mg/dL (0.2-1.0) H 10/27/17 22:40 Ur Leukocyte Esterase 1+ (NEGATIVE) H 10/27/17 22:40 Urine WBC (Auto) 67 /hpf (3-5) 10/27/17 22:40 Urine RBC (Auto) 9 /hpf (0-3) 10/27/17 22:40 Ur Epithelial Cells Many /HPF (FEW) 10/27/17 22:40 Urine Bacteria Rare /hpf (NONE SEEN) 10/27/17 22:40 Urine Mucus Many 10/27/17 22:40 RPR Titer Nonreactive (NONREACTIVE) 10/28/17 07:00 lab noted repeat ua Assessment: 10/30/17 10:08 withdrawal sx Plan: continue detox
[2017-10-30] MEDS: cloNIDine HCL 0.1 MG TABLET PO SCH ×2 (10:26→22:05)
[2017-10-30] MEDS: diazePAM 5 MG TABLET PO SCH ×2 (10:26→22:05)
[2017-10-30] MEDS: METHADONE HCL 5 MG TABLET (FOR DETOX USE ONLY) PO SCH (10:26)
[2017-10-30] MEDS: NICOTINE 21 MG/24 HOURS TOPICAL PATCH TD SCH (10:27)
[2017-10-30] MEDS: NICOTINE POLACRILEX 2 MG GUM BC PRN (10:27)
[2017-10-30] MEDS: PRENATAL VITAMINS W/ FOLIC ACID TABLET (FP) PO SCH (11:12)
[2017-10-30] MEDS: diazePAM 5 MG TABLET PO PRN (13:44)
[2017-10-30 14:50] LABS: URINE APPEARANCE CLOUDY; URINE BILIRUBIN NEGATIVE (NEGATIVE); URINE BLOOD NEGATIVE (NEGATIVE); URINE COLOR YELLOW; URINE GLUCOSE (UA) NEGATIVE (NEGATIVE); URINE KETONE NEGATIVE (NEGATIVE); URINE LEUK ESTERASE TRACE (NEGATIVE); URINE NITRITE NEGATIVE (NEGATIVE); URINE PROTEIN NEGATIVE (NEGATIVE); URINE UROBILINOGEN NEGATIVE mg/dL (0.2-1.0)
[2017-10-30 14:54] LABS: EPI CELLS MODERATE /HPF (FEW); URINE MUCUS RARE
[2017-10-30] MEDS: QUEtiapine FUMARATE 50 MG TABLET PO SCH (22:05)
[2017-10-30] MEDS: CYCLOBENZAPRINE HCL 10 MG TABLET (FP) PO PRN (22:05)
[2017-10-30] MEDS: THIAMINE HCL 100 MG TABLET (FP) PO SCH (22:07)
[2017-10-31] MEDS ORDERED: diazePAM 5 MG TABLET PO SCH (10:00)
[2017-10-31] MEDS ORDERED: METHADONE HCL 10 MG TABLET (FOR DETOX USE ONLY) PO SCH (10:00)
--- NOTE | 2017-10-31 10:01 | PN ---
S Progress Note (SOAP) Subjective: alert oriented x 3 interact with peers no tremor less sweat denies body ache tolerates food and fluid well Objective: 10/31/17 10:00 Vital Signs Temperature 98.2 F 10/30/17 23:12 Pulse Rate 86 10/30/17 23:12 Respiratory Rate 17 10/31/17 03:30 Blood Pressure 108/69 10/30/17 23:12 O2 Sat by Pulse Oximetry (%) Laboratory Last Values WBC 7.0 K/mm3 (4.0-10.0) 10/28/17 07:00 RBC 4.63 M/mm3 (3.60-5.2) 10/28/17 07:00 Hgb 13.3 GM/dL (10.7-15.3) 10/28/17 07:00 Hct 40.4 % (32.4-45.2) 10/28/17 07:00 MCV 87.3 fl (80-96) 10/28/17 07:00 MCH 28.8 pg (25.7-33.7) 10/28/17 07:00 MCHC 33.0 g/dl (32.0-36.0) 10/28/17 07:00 RDW 13.8 % (11.6-15.6) 10/28/17 07:00 Plt Count 266 K/MM3 (134-434) 10/28/17 07:00 MPV 7.6 fl (7.5-11.1) 10/28/17 07:00 Sodium 140 mmol/L (136-145) 10/28/17 07:00 Potassium 4.4 mmol/L (3.5-5.1) 10/28/17 07:00 Chloride 106 mmol/L (98-107) 10/28/17 07:00 Carbon Dioxide 30 mmol/L (21-32) 10/28/17 07:00 Anion Gap 4 (8-16) L 10/28/17 07:00 BUN 18 mg/dL (7-18) 10/28/17 07:00 Creatinine 0.8 mg/dL (0.55-1.02) 10/28/17 07:00 Creat Clearance w eGFR > 60 (>60) 10/28/17 07:00 Random Glucose 80 mg/dL (74-106) 10/28/17 07:00 Calcium 8.5 mg/dL (8.5-10.1) 10/28/17 07:00 Total Bilirubin 0.3 mg/dL (0.2-1.0) D 10/28/17 07:00 AST 15 U/L (15-37) 10/28/17 07:00 ALT 32 U/L (12-78) 10/28/17 07:00 Alkaline Phosphatase 87 U/L (45-117) 10/28/17 07:00 Total Protein 7.3 g/dl (6.4-8.2) 10/28/17 07:00 Albumin 3.2 g/dl (3.4-5.0) L 10/28/17 07:00 Urine Color Yellow 10/30/17 13:40 Urine Appearance Cloudy 10/30/17 13:40 Urine pH 7.0 (5.0-8.0) D 10/30/17 13:40 Ur Specific [place] 1.016 (1.001-1.035) 10/30/17 13:40 Urine Protein Negative (NEGATIVE) 10/30/17 13:40 Urine Glucose (UA) Negative (NEGATIVE) 10/30/17 13:40 Urine Ketones Negative (NEGATIVE) 10/30/17 13:40 Urine Blood Negative (NEGATIVE) 10/30/17 13:40 Urine Nitrite Negative (NEGATIVE) 10/30/17 13:40 Urine Bilirubin Negative (NEGATIVE) 10/30/17 13:40 Urine Urobilinogen Negative mg/dL (0.2-1.0) 10/30/17 13:40 Ur Leukocyte Esterase Trace (NEGATIVE) 10/30/17 13:40 Urine WBC (Auto) 18 /hpf (3-5) 10/30/17 13:40 Urine RBC (Auto) 3 /hpf (0-3) 10/30/17 13:40 Ur Epithelial Cells Moderate /HPF (FEW) 10/30/17 13:40 Urine Bacteria Rare /hpf (NONE SEEN) 10/27/17 22:40 Urine Mucus Rare 10/30/17 13:40 RPR Titer Nonreactive (NONREACTIVE) 10/28/17 07:00 lab noted Assessment: 10/31/17 10:01 mild withdrawal sx Plan: medically supervised detox
[2017-10-31] MEDS: cloNIDine HCL 0.1 MG TABLET PO SCH (10:03)
[2017-10-31] MEDS: PRENATAL VITAMINS W/ FOLIC ACID TABLET (FP) PO SCH (10:03)
[2017-10-31] MEDS: NICOTINE POLACRILEX 2 MG GUM BC PRN ×2 (10:04→22:15)
[2017-10-31] MEDS: NICOTINE 21 MG/24 HOURS TOPICAL PATCH TD SCH (10:04)
[2017-10-31] MEDS: QUEtiapine FUMARATE 50 MG TABLET PO SCH (22:15)
[2017-10-31] MEDS: CYCLOBENZAPRINE HCL 10 MG TABLET (FP) PO PRN (22:15)
[2017-10-31] MEDS: THIAMINE HCL 100 MG TABLET (FP) PO SCH (22:15)
[2017-11-01] MEDS ORDERED: METHADONE HCL 5 MG TABLET (FOR DETOX USE ONLY) PO SCH (06:00)
[2017-11-01 06:35] VITALS: BP 103/69; PULSE 92; TEMP 97.9
--- NOTE | 2017-11-01 08:58 | DS ---
[facility] Detox Discharge Summary Admission Date: 10/27/17 Discharge Date: 11/01/17 - History Present History: Alcohol Dependence, Cocaine Dependence, Opioid Dependence - Physical Exam Results Vital Signs: Vital Signs Temperature 97.9 F 11/01/17 06:34 Pulse Rate 92 H 11/01/17 06:34 Respiratory Rate 18 11/01/17 06:34 Blood Pressure 103/69 11/01/17 06:34 O2 Sat by Pulse Oximetry (%) - Treatment Hospital Course: Detox Protocol Followed, Detoxed Safely, Responded well, Discharged Condition Good - Medication Discharge Medications: Ambulatory Orders Quetiapine Fumarate [Seroquel -] 50 mg PO HS #30 tablet 10/29/17 - Diagnosis (1) Alcohol dependence with uncomplicated withdrawal Current Visit: Yes Status: Chronic (2) Cocaine dependence Current Visit: Yes Status: Chronic (3) Nicotine dependence Current Visit: Yes Status: Chronic Qualifiers: Nicotine product type: cigarettes Substance use status: in withdrawal Qualified Code(s): F17.213 - Nicotine dependence, cigarettes, with withdrawal (4) Opioid dependence with withdrawal Current Visit: Yes Status: Chronic (5) Sedative, hypnotic or anxiolytic dependence with withdrawal, uncomplicated Current Visit: Yes Status: Chronic - AMA Did Patient Leave Against Medical Advice: No
== END 2017-11-01 09:12 | disposition home or self-care (01) | DRG 773 ==
LOC: YASAS 10:14 → Y6N 16:25
PROVIDERS: ADMIT Internal Medicine; ATTEND Internal Medicine
PROC: HZ2ZZZZ Detoxification Services for Substance Abuse Treatment (ICD-10-PCS; principal; 2017-10-27)
DX: F11.23 Opioid dependence with withdrawal (principal); F13.230 Sedative, hypnotic or anxiolytic dependence with withdrawal, uncomplicated; F10.230 Alcohol dependence with withdrawal, uncomplicated; F14.20 Cocaine dependence, uncomplicated; F17.213 Nicotine dependence, cigarettes, with withdrawal; F19.24 Other psychoactive substance dependence with psychoactive substance-induced mood disorder; F51.05 Insomnia due to other mental disorder; G47.00 Insomnia, unspecified; B18.2 Chronic viral hepatitis C; Z86.69 Personal history of other diseases of the nervous system and sense organs; Z87.898 Personal history of other specified conditions
CPT/HCPCS: 36415; 80053; 81003; 81015; 85027; 86593; 93005; 93010; J0735

== ENCOUNTER 2017-11-30 13:09 | Inpatient (IN) | payer OTHER ==
[2017-11-30 13:26] VITALS: BMI 19.5
--- NOTE | 2017-11-30 16:36 | HP ---
COWS - Scale Resting Pulse: 1= [place] 81-100 Sweatin=Flushed/Facial Moisture Restless Observation: 1= Difficult to Sit Still Pupil Size: 1= Pupils >than Normal Bone or Joint Aches: 2= Severe Diffuse Aches Runny Nose/ Eye Tearin= Runny Nose/Eyes GI Upset > 30mins: 2= Nausea/Diarrhea Tremor Observation: 2= Slight Tremor Visible Yawning Observation: 1= 1-2x During Session Anxiety or Irritability: 2=Irritable/Anxious Goose Flesh Skin: 3=Piloerection COWS Score: 19 CIWA Score - CIWA Score Nausea/Vomitin Muscle Tremors: 4-Moderate,w/Arms Extend Anxiety: 2 Agitation: 2 Paroxysmal Sweats: 3 Orientation: 0-Oriented Tacttile Disturbances: 1-Very Mild Itch/Numbness Auditory Disturbances: 1-Very Mild Visual Disturbances: 1-Very Mild Sensitivity Headache: 3-Moderate CIWA-Ar Total Score: 19 Admission ROS [facility] - HPI Chief Complaint: Im here to get help, I want to stay clean Allergies/Adverse Reactions: Allergies Allergy/AdvReac Type Severity Reaction Status Date / Time No Known Allergies Allergy Verified 10/27/17 14:11 History of Present Illness: 37 y/o old woman with alcohol and poly substance abuse presents for detox, her most recent detox was last month at [facility]. She reports relapsing because the rehabilitation center did not take her because of her insurance and as such she relapsed. Exam Limitations: No Limitations - Ebola screening Have you traveled outside of the country in the last 21 days: No ([place]) Have you had contact with anyone from an Ebola affected area: No Have you been sick,other than usual withdrawal symptoms: No Do you have a fever: No - Review of Systems Constitutional: Chills, Diaphoresis, Loss of Appetite, Malaise, Changes in sleep EENT: reports: Eye Pain Respiratory: reports: No Symptoms reported Cardiac: reports: No Symptoms Reported GI: reports: Nausea, Poor Appetite, Poor Fluid Intake, Abdominal cramping : reports: No Symptoms Reported Musculoskeletal: reports: Back Pain, Joint Pain, Muscle Pain, Muscle Weakness Neuro: reports: No Symptoms reported Endocrine: reports: No Symptoms Reported Hematology: reports: Anemia Psychiatric: reports: Depressed Other Systems: Reviewed and Negative Patient History - Patient Medical History Hx Anemia: Yes (Not on meds) Hx Asthma: No Hx Chronic Obstructive Pulmonary Disease (COPD): No Hx Cancer: No Hx Cardiac Disorders: No Hx Congestive Heart Failure: No Hx Hypertension: No Hx Hypercholesterolemia: No Hx Pacemaker: No HX Cerebrovascular Accident: No Hx Seizures: Yes (in 2014 related to withdrawal) Hx Dementia: No Hx Diabetes: No Hx Gastrointestinal Disorders: No Hx Liver Disease: Yes (Hep C, Treated 2005, but relapsed after.) Hx Genitourinary Disorders: No Hx Sexually Transmitted Disorders: No Hx Renal Disease (ESRD): No Hx Thyroid Disease: No Hx Human Immunodeficiency Virus (HIV): No Hx Hepatitis C: Yes (2005, treated with Interferon and ribavirin, relapsed after.) Hx Depression: Yes Hx Suicide Attempt: No Hx Bipolar Disorder: No Hx Schizophrenia: No - Patient Surgical History Past Surgical History: Yes Hx Neurologic Surgery: No Hx Cataract Extraction: No Hx Cardiac Surgery: No Hx Lung Surgery: No Hx Breast Surgery: No Hx Breast Biopsy: No Hx Abdominal Surgery: No Hx Appendectomy: No Hx Cholecystectomy: No Hx Genitourinary Surgery: No Hx Section: No Hx Orthopedic Surgery: Yes (lt. hand surgery tendon repair (age 17), I&D of abcesses (age 27).) Hx Hysterectomy: No Anesthesia Reaction: No - PPD History Previous Implant?: Yes Documented Results: Negative w/proof Implanted On Prior [facility] Admission?: Yes Date: 10/26/16 Results: 0 mm PPD to be Administered?: Yes - Reproductive History Last Menstrual Period: 10/15/17 Patient : No - Smoking Cessation Smoking history: Current every day smoker Have you smoked in the past 12 months: Yes Aproximately how many cigarettes per day: 10 Cigars Per Day: 0 Hx Chewing Tobacco Use: No Initiated information on smoking cessation: Yes 'Breaking Loose' booklet given: 11/30/17 - Substance & Tx. History Hx Alcohol Use: Yes (Whisky) Hx Substance Use: Yes Substance Use Type: Alcohol, Cocaine, Heroin, Tranquilizers Hx Substance Use Treatment: Yes - Substances Abused Alcohol Route: Oral Frequency: Daily Amount used: 1 pint Age of first use: 22 Date of Last Use: 11/29/17 Alprazolam (Xanax) Route: Oral Frequency: Daily Amount used: 6mg Age of first use: 30 Date of Last Use: 11/30/17 Cocaine Route: Injection Frequency: 1-2 times per week Amount used: $20 Age of first use: 30 Date of Last Use: 11/29/17 Heroin Route: Injection Frequency: Daily Amount used: 4 bundles Age of first use: 30 Date of Last Use: 11/30/17 Marijuana/Hashish Route: Smoking Frequency: 3-6 times per week Amount used: 2 Age of first use: 30 Date of Last Use: 11/29/17 Family Disease History - Family Disease History Family Disease History: Diabetes: Father, Heart Disease: Grandparent (HTN.) Admission Physical Exam [facility] - Vital Signs Vital Signs: Vital Signs - 24 hr 11/30/17 13:24 Temperature 97.8 F Pulse Rate 96 H Respiratory 18 Rate Blood Pressure 118/70 - Physical General Appearance: Yes: Mild Distress, Alcohol on Breath, Irritable, Sweating HEENTM: Yes: Hearing grossly Normal, Normocephalic, Normal Voice Respiratory: Yes: Chest Non-Tender, Normal Breath Sounds, No Respiratory Distress, No Accessory Muscle Use Neck: Yes: No masses,lesions,Nodules, Trachea in good position Breast: Yes: Breast Exam Deferred Cardiology: Yes: Regular Rhythm, Regular Rate, S1, S2 Abdominal: Yes: Normal Bowel Sounds, Non Tender, Soft Genitourinary: Yes: Within Normal Limits Back: Yes: Normal Inspection Extremities: Yes: Normal Range of Motion, Non-Tender, Tremors Neurological: Yes: Fully Oriented, Alert, Normal Response Integumentary: Yes: Normal Color, Warm, Track Gray (on both arms) Lymphatic: Yes: Within Normal Limits - Diagnostic (1) Insomnia secondary to depression with anxiety Current Visit: No Status: Acute (2) Substance induced mood disorder Current Visit: No Status: Acute (3) Alcohol dependence with uncomplicated withdrawal Current Visit: Yes Status: Acute (4) Cocaine dependence Current Visit: Yes Status: Acute Qualifiers: Substance use status: uncomplicated Qualified Code(s): F14.20 - Cocaine dependence, uncomplicated (5) Nicotine dependence Current Visit: Yes Status: Acute Qualifiers: Nicotine product type: cigarettes Substance use status: uncomplicated Qualified Code(s): F17.210 - Nicotine dependence, cigarettes, uncomplicated (6) Opioid dependence with withdrawal Current Visit: Yes Status: Acute (7) Sedative, hypnotic or anxiolytic dependence with withdrawal, uncomplicated Current Visit: Yes Status: Acute Cleared for Admission [facility] - Detox or Rehab [facility] Level of Care: Medically Managed Detox Regimen/Protocol: Methadone/Librium [facility] Breath Alcohol Content Breath Alcohol Content: 0 Urine Pregancy Test - Result Urine Test Results: Negative- NO Line Present Urine Drug Screen - Results Drug Screen Negative: No Urine Drug Screen Results: THC-Marijuana, SANDEEP-Cocaine, OPI-Opiates, BZO- Benzodiazepines
[2017-11-30] MEDS ORDERED: MENTHOL/PHENOL 1 EACH UD MM PRN (16:54)
[2017-11-30] MEDS ORDERED: LOPERAMIDE HCL 2 MG CAPSULE PO PRN (16:54)
[2017-11-30] MEDS ORDERED: guaiFENesin/D-METHORPHAN HB 10 ML UNIT-DOSE CUPS PO PRN (16:54)
[2017-11-30] MEDS ORDERED: P-EPHED 60MG/TRIPROLIDI 2.5MG TABLET PO PRN (16:54)
[2017-11-30] MEDS ORDERED: chlordiazePOXIDE HCL 25 MG CAPSULE PO ONE (16:54)
[2017-11-30] MEDS ORDERED: chlordiazePOXIDE HCL 25 MG CAPSULE PO PRN (16:54)
[2017-11-30] MEDS ORDERED: MAG HYDROX/AL HYDROX/SIMETH 30 ML UNIT-DOSE CUP PO PRN (16:54)
[2017-11-30] MEDS ORDERED: ACETAMINOPHEN 325 MG TABLET (FP) PO PRN (16:54)
[2017-11-30] MEDS ORDERED: METHADONE HCL 10 MG TABLET (FOR DETOX USE ONLY) PO ONE ×2 (16:54→23:00)
[2017-11-30] MEDS ORDERED: MAGNESIUM HYDROX 2400MG/30ML ORAL SUSPENSION 30 ML CUP PO PRN (16:54)
[2017-11-30] MEDS ORDERED: MAGNESIUM CITRATE 300 ML BOTTLE PO PRN (16:54)
[2017-11-30] MEDS ORDERED: chlordiazePOXIDE HCL 25 MG CAPSULE ONE (19:15)
[2017-11-30] MEDS ORDERED: METHADONE HCL 10 MG TABLET (FOR DETOX USE ONLY) ONE (19:15)
[2017-11-30] MEDS: NICOTINE 14 MG/24 HOURS TOPICAL PATCH TD SCH (19:21)
[2017-11-30] MEDS ORDERED: MELATONIN 5 MG TABLETS PO PRN (22:00)
[2017-11-30] MEDS: NICOTINE POLACRILEX 2 MG GUM BC PRN (22:09)
[2017-11-30] MEDS: chlordiazePOXIDE HCL 25 MG CAPSULE PO SCH (22:09)
[2017-11-30] MEDS: THIAMINE HCL 100 MG TABLET (FP) PO SCH (22:11)
[2017-11-30 23:23] LABS: URINE APPEARANCE CLOUDY; URINE BILIRUBIN NEGATIVE (<2.0 mg/dL); URINE BLOOD NEGATIVE (NEGATIVE); URINE GLUCOSE (UA) NEGATIVE (NEGATIVE); URINE KETONE NEGATIVE (NEGATIVE); URINE NITRITE NEGATIVE (NEGATIVE)
[2017-11-30 23:25] LABS: URINE COLOR YELLOW; URINE LEUK ESTERASE 1+ (NEGATIVE); URINE PROTEIN 1+ (NEGATIVE)
[2017-11-30 23:32] LABS: CALCIUM OXALATE CRYSTALS FEW /hpf (NONE SEEN); EPI CELLS MANY /HPF (FEW); URINE MUCUS MANY
[2017-12-01] MEDS: chlordiazePOXIDE HCL 25 MG CAPSULE PO SCH (06:48)
--- NOTE | 2017-12-01 09:23 | EKG ---
Test Reason : Blood Pressure : / mmHG Vent. Rate : 092 BPM Atrial Rate : 092 BPM P-R Int : 128 ms QRS Dur : 078 ms QT Int : 350 ms P-R-T Axes : 073 078 042 degrees QTc Int : 432 ms NORMAL SINUS RHYTHM NORMAL ECG WHEN COMPARED WITH ECG OF 27-OCT-2017 17:39, VENT. RATE HAS INCREASED BY 31 BPM Confirmed by JAMAL ALMONTE MD ([id number]) on 12/01/2017 9:22:47 AM Referred By: Confirmed By:JAMAL ALMONTE MD
[2017-12-01] MEDS ORDERED: METHADONE HCL 10 MG TABLET (FOR DETOX USE ONLY) PO SCH (10:00)
--- NOTE | 2017-12-01 10:03 | PN ---
S CIWA - CIWA Score Nausea/Vomitin-Mild Nausea/No Vomiting Muscle Tremors: 4-Moderate,w/Arms Extend Anxiety: 4-Mod. Anxious/Guarded Agitation: 4-Moderately Restless Paroxysmal Sweats: 1-Minimal Palms Moist Orientation: 0-Oriented Tacttile Disturbances: 1-Very Mild Itch/Numbness Auditory Disturbances: 0-None Visual Disturbances: 1-Very Mild Sensitivity Headache: 0-None Present CIWA-Ar Total Score: 16 [facility] COWS - Scale Resting Pulse: 1= [place] 81-100 Sweatin= Chills/Flushing Restless Observation: 1= Difficult to Sit Still Pupil Size: 0= Normal to Room Light Bone or Joint Aches: 2= Severe Diffuse Aches Runny Nose/ Eye Tearin= Nasal Congestion GI Upset > 30mins: 2= Nausea/Diarrhea Tremor Observation of Outstretched Hands: 2= Slight Tremor Visible Yawning Observation: 2= >3x During Session Anxiety or Irritability: 2=Irritable/Anxious Goose Flesh Skin: 3=Piloerection COWS Score: 17 [facility] Progress Note (SOAP) Subjective: joints ache muscle pain sweat tremor anxiety restlessness irritable unable to sleep throughout the night Objective: 12/01/17 09:59 Vital Signs Temperature 98.1 F 12/01/17 09:50 Pulse Rate 16 L 12/01/17 09:50 Respiratory Rate 115 H 12/01/17 09:50 Blood Pressure 125/85 12/01/17 09:50 O2 Sat by Pulse Oximetry (%) Laboratory Last Values Urine Color Yellow 11/30/17 21:00 Urine Appearance Cloudy 11/30/17 21:00 Urine pH 6.0 (5.0-8.0) 11/30/17 21:00 Ur Specific [place] 1.023 (1.001-1.035) 11/30/17 21:00 Urine Protein 1+ (NEGATIVE) H 11/30/17 21:00 Urine Glucose (UA) Negative (NEGATIVE) 11/30/17 21:00 Urine Ketones Negative (NEGATIVE) 11/30/17 21:00 Urine Blood Negative (NEGATIVE) 11/30/17 21:00 Urine Nitrite Negative (NEGATIVE) 11/30/17 21:00 Urine Bilirubin Negative (<2.0 mg/dL) 11/30/17 21:00 Urine Urobilinogen 2.0 mg/dL (0.2-1.0) H 11/30/17 21:00 Ur Leukocyte Esterase 1+ (NEGATIVE) H 11/30/17 21:00 Urine WBC (Auto) 180 /hpf (3-5) 11/30/17 21:00 Urine RBC (Auto) 26 /hpf (0-3) 11/30/17 21:00 Ur Epithelial Cells Many /HPF (FEW) 11/30/17 21:00 Calcium Oxalate Crystal Few /hpf (NONE SEEN) 11/30/17 21:00 Urine Mucus Many 11/30/17 21:00 lab noted gu asymptomatic 12/01/17 10:02 increase oral fluid repeat ua Assessment: 12/01/17 10:02 withdrawal sx Plan: continue detox increase oral fluid repeat ua
[2017-12-01 10:04] LABS: CHLORIDE 104 mmol/L (98-107); HEMATOCRIT 37.3 % (32.4-45.2); HEMOGLOBIN 12.6 GM/dL (10.7-15.3); MCHC 33.7 g/dl (32.0-36.0); MEAN CELL VOLUME 86.1 fl (80-96); PLATELET COUNT 450 K/MM3 (134-434); POTASSIUM 3.9 mmol/L (3.5-5.1); RBC 4.33 M/mm3 (3.60-5.2); RDW 14.2 % (11.6-15.6); SODIUM 138 mmol/L (136-145); WHITE BLOOD COUNT 5.7 K/mm3 (4.0-10.0)
[2017-12-01 10:08] LABS: ALBUMIN 3.1 g/dl (3.4-5.0); ALK PHOS 89 U/L (45-117); ANION GAP 6 (8-16); BILIRUBIN,TOTAL 0.2 mg/dL (0.2-1.0); BLOOD UREA NITROGEN 15 mg/dL (7-18); CALCIUM 8.7 mg/dL (8.5-10.1); CO2 28 mmol/L (21-32); CREATININE 0.7 mg/dL (0.55-1.02); GLUCOSE,RANDOM 87 mg/dL (74-106); SGOT/AST 11 U/L (15-37); SGPT/ALT 18 U/L (12-78); TOT PROT 8.1 g/dl (6.4-8.2)
[2017-12-01] MEDS: diazePAM 5 MG TABLET PO SCH ×3 (10:10→22:08)
[2017-12-01] MEDS: PRENATAL VITAMINS W/ FOLIC ACID TABLET (FP) PO SCH (10:10)
[2017-12-01] MEDS: NICOTINE 14 MG/24 HOURS TOPICAL PATCH TD SCH (10:11)
[2017-12-01] MEDS: NICOTINE POLACRILEX 2 MG GUM BC PRN (10:12)
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
[2017-12-01] MEDS: diazePAM 5 MG TABLET PO PRN (17:46)
[2017-12-01] MEDS ORDERED: traZODone HCL 100 MG TABLET (FP) PO SCH (22:00)
[2017-12-01] MEDS: THIAMINE HCL 100 MG TABLET (FP) PO SCH (22:08)
--- NOTE | 2017-12-01 22:23 | PN ---
[facility] Progress Note Note: ASKED TO SEE CLIENT FOR R LEG ABCESS. CLIENT REPORTS AN OPEN DRAINING ABCESS FROM SHOOTING UP COCAINE TO R THIGH. CLIENT REPORTS IT BEEN THERE FOR ABOUT A WEEK BUT STARTED DRAINING ABOUT 4 DAYS AGO. DENIES BFEVER, CHILLS, SOB. R THIGH ABCESS NOTED DRAINING PURELENT DC. WOUND WITH ERYTHEMATOUS BORDERS WITH YELLOWISH SLOUGH LIKE TISSUE. Vital Signs Temperature 98.1 F 12/01/17 21:53 Pulse Rate 79 12/01/17 21:53 Respiratory Rate 18 12/01/17 21:53 Blood Pressure 114/75 12/01/17 21:53 O2 Sat by Pulse Oximetry (%) R THIGH ABCESS AUGMENTIN 875 MG PO BID X10 DAYS CLEANSE R THIGH WOUND WITH NS DAILY AND APPLY BACITRACIN AND COVER WITH CDD BID
[2017-12-01] MEDS ORDERED: chlordiazePOXIDE HCL 25 MG CAPSULE PO SCH (23:00)
[2017-12-01] MEDS ORDERED: AMOX TR/POT CLAV 875MG/125MG TABLETS (FP) PO ONE (23:11)
[2017-12-01] MEDS: BACITRACIN 15 GM TUBE TOPICAL OINTMENT TP SCH (23:47)
[2017-12-02] MEDS: AMOX TR/POT CLAV 875MG/125MG TABLETS (FP) PO SCH ×2 (09:00→17:59)
[2017-12-02] MEDS ORDERED: BACITRACIN 0.9 GM PACKET ONE (09:14)
--- NOTE | 2017-12-02 09:53 | PN ---
[facility] CIWA - CIWA Score Nausea/Vomitin Muscle Tremors: 3 Anxiety: 3 Agitation: 2 Paroxysmal Sweats: 1-Minimal Palms Moist Orientation: 0-Oriented Tacttile Disturbances: 1-Very Mild Itch/Numbness Auditory Disturbances: 1-Very Mild Visual Disturbances: 0-None Headache: 2-Mild CIWA-Ar Total Score: 16 [facility] COWS - Scale Resting Pulse: 1= RI 81-100 Sweatin= Chills/Flushing Restless Observation: 3= Extraneous Movement Pupil Size: 1= Pupils >than Normal Bone or Joint Aches: 2= Severe Diffuse Aches Runny Nose/ Eye Tearin= Runny Nose/Eyes GI Upset > 30mins: 2= Nausea/Diarrhea Tremor Observation of Outstretched Hands: 2= Slight Tremor Visible Yawning Observation: 1= 1-2x During Session Anxiety or Irritability: 2=Irritable/Anxious Goose Flesh Skin: 0=Smooth Skin COWS Score: 17 [facility] Progress Note (SOAP) Subjective: ALERT,IRRITABLE,ANXIOUS PAIN IN THE BODY AND BACK,,INTERRUPTED SLEEP,TREMOR Objective: 12/02/17 09:53 Vital Signs Temperature 98.1 F 12/01/17 21:53 Pulse Rate 79 12/01/17 21:53 Respiratory Rate 18 12/02/17 03:30 Blood Pressure 114/75 12/01/17 21:53 O2 Sat by Pulse Oximetry (%) Assessment: 12/02/17 09:53 WITHDRAWAL SYMPTOM Plan: CONTINUE DETOX
[2017-12-02] MEDS: METHADONE HCL 5 MG TABLET (FOR DETOX USE ONLY) PO SCH (10:17)
[2017-12-02] MEDS: diazePAM 5 MG TABLET PO SCH ×2 (10:17→22:04)
[2017-12-02] MEDS: PRENATAL VITAMINS W/ FOLIC ACID TABLET (FP) PO SCH ×2 (10:18→10:21)
[2017-12-02] MEDS: BACITRACIN 15 GM TUBE TOPICAL OINTMENT TP SCH ×2 (10:18→22:48)
[2017-12-02] MEDS: NICOTINE 14 MG/24 HOURS TOPICAL PATCH TD SCH (10:21)
--- NOTE | 2017-12-02 15:04 | PN ---
Psychiatric Progress Note Vital Signs: Vital Signs Period Temp Pulse Resp BP Sys/Wise Pulse Ox Last 24 Hr 97.5 F-98.1 F 72-88 16-18 114-127/73-84 Date of Session: 12/02/17 Chief Complaint:: Insomnia HPI: Patient reports taking prior to admission Seroquel 100mg po qhs for insomnia with good response, reports Trazodone order is not helpful , asking to D/C Trazodone. Current Medications: Active Medications Generic Name Dose Route Start Last Admin Trade Name Freq PRN Reason Stop Dose Admin Acetaminophen 650 mg 11/30/17 16:54 Tylenol - PO Q4H PRN FEVER Al Hydroxide/Mg Hydroxide 30 ml 11/30/17 16:54 Mylanta Oral Suspension - PO Q6H PRN DYSPEPSIA Amoxicillin/Clavulanate Potassium 1 tab 12/02/17 08:00 12/02/17 09:00 Augmentin - 875mg Tablet PO 12/12/17 07:59 1 tab BID@0800,1730 OK Administration Bacitracin 1 applic 12/01/17 23:45 12/02/17 10:18 Bacitracin - TP 1 applic BID OK Administration Diazepam 5 mg 12/02/17 10:00 12/02/17 10:17 Valium - PO 12/03/17 22:01 5 mg BID OK Administration Diazepam 5 mg 12/04/17 06:00 Valium - PO 12/04/17 06:01 DAILY OK Diazepam 10 mg 12/01/17 09:54 12/01/17 17:46 Valium - PO 12/04/17 09:53 10 mg Q4H PRN Administration WITHDRAWAL(CONT SUBST) Eucalyptus/Menthol/Phenol/Sorbitol 1 each 11/30/17 16:54 Cepastat Lozenge - MM Q4H PRN SORE THROAT Guaifenesin 10 ml 11/30/17 16:54 Robitussin Dm - PO Q6H PRN COUGH Hydroxyzine Pamoate 50 mg 11/30/17 16:54 Vistaril - PO Q4H PRN AGITATION Ibuprofen 400 mg 11/30/17 16:54 Motrin - PO Q6H PRN PAIN LEVEL 4-6 Loperamide HCl 4 mg 11/30/17 16:54 Imodium - PO Q6H PRN DIARRHEA Magnesium Citrate 300 ml 11/30/17 16:54 Citroma - PO Q48H PRN CONSTIPATION Magnesium Hydroxide 30 ml 11/30/17 16:54 Milk Of Magnesia - PO DAILY PRN CONSTIPATION Melatonin 5 mg 11/30/17 22:00 Melatonin PO HS PRN INSOMNIA Methadone HCl 15 mg 12/02/17 10:00 12/02/17 10:17 Dolophine - PO 12/03/17 10:01 15 mg DAILY OK Administration Methadone HCl 5 mg 12/05/17 06:00 Dolophine - PO 12/05/17 06:01 DAILY@0600 OK Methadone HCl 10 mg 12/04/17 10:00 Dolophine - PO 12/04/17 10:01 DAILY [facility] Nicotine 14 mg 11/30/17 17:00 12/02/17 10:21 Nicoderm Patch - TD Not Given DAILY [facility] Nicotine Polacrilex 2 mg 11/30/17 16:54 12/01/17 10:12 Nicorette Gum - BC 2 mg Q2H PRN Administration NICOTINE REPLACEMENT RX Multivit/Folic Acid/Iron 1 tab 12/01/17 10:00 12/02/17 10:21 Vitamins (Sjr) - PO Not Given DAILY [facility] Pseudoephedrine/Triprolidine 1 combo 11/30/17 16:54 Actifed - PO TID PRN NASAL CONGESTION Quetiapine Fumarate 100 mg 12/02/17 22:00 Seroquel - PO HS OK Thiamine HCl 100 mg 11/30/17 22:00 12/01/17 22:08 Vitamin B1 - PO 100 mg HS [facility] Administration Medication(s) Change(s): Seroquel 100mg po qhs. D/C Trazodone 150mg po qhs Provider note:: Chart revewed, patient evaluated, patient reports insomnia, states Seroquel 100mg po qhs she was taking prior to admission with good response Mental Status Exam - Mental Status Exam Alert and Oriented to: Person Cognitive Function: Fair Patient Appearance: Unkempt Mood: Apprehensive Affect: Mood Congruent Patient Behavior: Cooperative Speech Pattern: Appropriate Voice Loudness: Mildly Soft/Quiet Thought Process: Circumstantial Thought Disorder: Being Controlled Hallucinations: Denies Suicidal Ideation: Denies Homicidal Ideation: Denies Insight/Judgement: Fair Sleep: Difficulty falling asleep Appetite: Weight loss Muscle strength/Tone: Normal Gait/Station: Normal Additional Comments: Seroquel 100mg po qhs. D/C Trazodone 150mg po qhs Psychiatric Treatment Plan - Problem List (1) Alcohol dependence with uncomplicated withdrawal Current Visit: Yes (2) Cannabis dependence Current Visit: Yes (3) Cocaine dependence Current Visit: Yes Qualifiers: Substance use status: uncomplicated Qualified Code(s): F14.20 - Cocaine dependence, uncomplicated (4) Opioid dependence with withdrawal Current Visit: Yes (5) Sedative, hypnotic or anxiolytic dependence with withdrawal, uncomplicated Current Visit: Yes (6) Substance-induced sleep disorder Current Visit: Yes (7) Bipolar disorder Current Visit: Yes (8) Nicotine dependence Current Visit: Yes Qualifiers: Nicotine product type: cigarettes Substance use status: uncomplicated Qualified Code(s): F17.210 - Nicotine dependence, cigarettes, uncomplicated (9) Substance induced mood disorder Current Visit: No Initial treatment plan: Seroquel 100mg po qhs. D/C Trazodone 150mg po qhs
[2017-12-02] MEDS: diazePAM 5 MG TABLET PO PRN (17:59)
[2017-12-02] MEDS: QUEtiapine FUMARATE 100 MG TABLET (FP) PO SCH (22:04)
[2017-12-02] MEDS: IBUPROFEN 400 MG TABLET (FP) PO PRN (22:08)
[2017-12-02] MEDS: THIAMINE HCL 100 MG TABLET (FP) PO SCH (22:08)
[2017-12-02] MEDS ORDERED: chlordiazePOXIDE 5 MG CAPSULE PO SCH (23:00)
[2017-12-02 23:08] LABS: URINE APPEARANCE TURBID; URINE BILIRUBIN NEGATIVE (<2.0 mg/dL); URINE BLOOD NEGATIVE (NEGATIVE); URINE COLOR DKYELLOW; URINE GLUCOSE (UA) NEGATIVE (NEGATIVE); URINE KETONE NEGATIVE (NEGATIVE); URINE NITRITE NEGATIVE (NEGATIVE)
[2017-12-02 23:15] LABS: URINE LEUK ESTERASE 1+ (NEGATIVE); URINE PROTEIN 1+ (NEGATIVE)
[2017-12-02 23:17] LABS: EPI CELLS FEW /HPF (FEW); URINE BACTERIA RARE /hpf (NONE SEEN); URINE MUCUS FEW; YEAST MANY
[2017-12-03] MEDS: AMOX TR/POT CLAV 875MG/125MG TABLETS (FP) PO SCH ×2 (08:01→17:41)
--- NOTE | 2017-12-03 09:45 | PN ---
[facility] Progress Note (SOAP) Subjective: ALERT,IRRITABLE,ANXIOUS,INTERRUPTED SLEEP,PAIN IN THE BODY Objective: 12/03/17 09:44 Vital Signs Temperature 97.9 F 12/02/17 22:30 Pulse Rate 88 12/02/17 22:30 Respiratory Rate 18 12/03/17 03:30 Blood Pressure 113/86 12/02/17 22:30 O2 Sat by Pulse Oximetry (%) Assessment: 12/03/17 09:44 WITHDRAWAL SYMPTOM Plan: CONTINUE DETOX
[2017-12-03] MEDS: diazePAM 5 MG TABLET PO SCH ×2 (10:12→22:09)
[2017-12-03] MEDS: METHADONE HCL 5 MG TABLET (FOR DETOX USE ONLY) PO SCH (10:12)
[2017-12-03] MEDS: BACITRACIN 15 GM TUBE TOPICAL OINTMENT TP SCH ×2 (10:12→23:10)
[2017-12-03] MEDS: PRENATAL VITAMINS W/ FOLIC ACID TABLET (FP) PO SCH (10:12)
[2017-12-03] MEDS: NICOTINE 14 MG/24 HOURS TOPICAL PATCH TD SCH (10:13)
[2017-12-03] MEDS: NICOTINE POLACRILEX 2 MG GUM BC PRN ×2 (10:13→13:02)
[2017-12-03] MEDS: IBUPROFEN 400 MG TABLET (FP) PO PRN ×2 (11:02→22:10)
[2017-12-03] MEDS: diazePAM 5 MG TABLET PO PRN ×2 (13:01→17:41)
--- NOTE | 2017-12-03 14:44 | PN ---
Psychiatric Progress Note Vital Signs: Vital Signs Period Temp Pulse Resp BP Sys/Wise Pulse Ox Last 24 Hr 96.4 F-989.2 F 69-107 18-20 109-125/65-86 Date of Session: 12/03/17 Chief Complaint:: " I can't sleep." HPI: Pt. admitted to for opiate, cocaine, and benzodiazepine dependence. ROS: Unremarkable Current Medications: Active Medications Generic Name Dose Route Start Last Admin Trade Name Freq PRN Reason Stop Dose Admin Acetaminophen 650 mg 11/30/17 16:54 Tylenol - PO Q4H PRN FEVER Al Hydroxide/Mg Hydroxide 30 ml 11/30/17 16:54 Mylanta Oral Suspension - PO Q6H PRN DYSPEPSIA Amoxicillin/Clavulanate Potassium 1 tab 12/02/17 08:00 12/03/17 08:01 Augmentin - 875mg Tablet PO 12/12/17 07:59 1 tab BID@0800,1730 OK Administration Bacitracin 1 applic 12/01/17 23:45 12/03/17 10:12 Bacitracin - TP 1 applic BID OK Administration Diazepam 5 mg 12/02/17 10:00 12/03/17 10:12 Valium - PO 12/03/17 22:01 5 mg BID OK Administration Diazepam 5 mg 12/04/17 06:00 Valium - PO 12/04/17 06:01 DAILY OK Diazepam 10 mg 12/01/17 09:54 12/03/17 13:01 Valium - PO 12/04/17 09:53 10 mg Q4H PRN Administration WITHDRAWAL(CONT SUBST) Eucalyptus/Menthol/Phenol/Sorbitol 1 each 11/30/17 16:54 Cepastat Lozenge - MM Q4H PRN SORE THROAT Guaifenesin 10 ml 11/30/17 16:54 Robitussin Dm - PO Q6H PRN COUGH Hydroxyzine Pamoate 50 mg 11/30/17 16:54 Vistaril - PO Q4H PRN AGITATION Ibuprofen 400 mg 11/30/17 16:54 12/03/17 11:02 Motrin - PO 400 mg Q6H PRN Administration PAIN LEVEL 4-6 Loperamide HCl 4 mg 11/30/17 16:54 Imodium - PO Q6H PRN DIARRHEA Magnesium Citrate 300 ml 11/30/17 16:54 Citroma - PO Q48H PRN CONSTIPATION Magnesium Hydroxide 30 ml 11/30/17 16:54 Milk Of Magnesia - PO DAILY PRN CONSTIPATION Melatonin 5 mg 11/30/17 22:00 Melatonin PO HS PRN INSOMNIA Methadone HCl 5 mg 12/05/17 06:00 Dolophine - PO 12/05/17 06:01 DAILY@0600 OK Methadone HCl 10 mg 12/04/17 10:00 Dolophine - PO 12/04/17 10:01 DAILY OK Nicotine 14 mg 11/30/17 17:00 12/03/17 10:13 Nicoderm Patch - TD Not Given DAILY OK Nicotine Polacrilex 2 mg 11/30/17 16:54 12/03/17 13:02 Nicorette Gum - BC 2 mg Q2H PRN Administration NICOTINE REPLACEMENT RX Multivit/Folic Acid/Iron 1 tab 12/01/17 10:00 12/03/17 10:12 Vitamins (Sjr) - PO 1 tab DAILY OK Administration Pseudoephedrine/Triprolidine 1 combo 11/30/17 16:54 Actifed - PO TID PRN NASAL CONGESTION Quetiapine Fumarate 100 mg 12/02/17 22:00 12/02/17 22:04 Seroquel - PO 100 mg HS OK Administration Thiamine HCl 100 mg 11/30/17 22:00 12/02/17 22:08 Vitamin B1 - PO 100 mg HS OK Administration Medication(s) Change(s): Yes. Will add Ambien 10mg Current Side Effect: No Lab tests ordered: No Lab tests reviewed: Yes Provider note:: Patient approached concerning psychiatric reconsultation. Pt. c/ o difficulty sleeping. Dr. Mendenhall and Dr. Gamble's note read and appreciated. Pt. was prescribed trazodone 150mg qhs with minimal effect on insomnia. Medication d/c and patient was prescribed seroquel 100mg qhs. Pt. continues to c /o poor sleep. Melatonin 5mg to be d/c and Ambien 10mg qhs to be ordered. Psychoeducation and sleep hygiene provided.Benefits and side effects discussed. Pt. made aware of the risk of parasomnia.Verbal consent given. Will continue to monitor. Total face to face time:: 25 Mental Status Exam - Mental Status Exam Alert and Oriented to: Time, Place, Person Cognitive Function: Good Patient Appearance: Well Groomed Mood: Hopeful Affect: Appropriate Patient Behavior: Appropriate, Cooperative Speech Pattern: Appropriate Voice Loudness: Normal Thought Process: Goal Oriented Thought Disorder: Not Present Hallucinations: Denies Suicidal Ideation: Denies Homicidal Ideation: Denies Insight/Judgement: Poor Sleep: Poorly Appetite: Fair Muscle strength/Tone: Normal Gait/Station: Normal Psychiatric Treatment Plan - Problem List (1) Opioid dependence with withdrawal Current Visit: Yes (2) Sedative, hypnotic or anxiolytic dependence with withdrawal, uncomplicated Current Visit: Yes (3) Substance-induced sleep disorder Current Visit: Yes (4) Bipolar disorder Current Visit: Yes (5) Nicotine dependence Current Visit: Yes Qualifiers: Nicotine product type: cigarettes Substance use status: uncomplicated Qualified Code(s): F17.210 - Nicotine dependence, cigarettes, uncomplicated (6) Alcohol dependence with uncomplicated withdrawal Current Visit: Yes (7) Cannabis dependence Current Visit: Yes (8) Cocaine dependence Current Visit: Yes Qualifiers: Substance use status: uncomplicated Qualified Code(s): F14.20 - Cocaine dependence, uncomplicated
[2017-12-03] MEDS: THIAMINE HCL 100 MG TABLET (FP) PO SCH (22:09)
[2017-12-03] MEDS: QUEtiapine FUMARATE 100 MG TABLET (FP) PO SCH (22:09)
[2017-12-03] MEDS: ZOLPIDEM TARTRATE 10 MG TABLET (PARK CARE ONLY) PO PRN (22:09)
[2017-12-03] MEDS ORDERED: chlordiazePOXIDE HCL 10 MG CAPSULE PO SCH (23:00)
[2017-12-04] MEDS ORDERED: diazePAM 5 MG TABLET PO SCH (06:00)
--- NOTE | 2017-12-04 09:14 | PN ---
S Progress Note (SOAP) Subjective: ALERT,INTERRUPTED SLEEP Objective: 12/04/17 09:13 Vital Signs Temperature 98.2 F 12/03/17 22:12 Pulse Rate 84 12/03/17 22:12 Respiratory Rate 18 12/04/17 03:30 Blood Pressure 116/77 12/03/17 22:12 O2 Sat by Pulse Oximetry (%) Assessment: 12/04/17 09:13 WITHDRAWAL SYMPTOM Plan: CONTINUE DETOX,DISCHARGE IN AM
[2017-12-04] MEDS ORDERED: METHADONE HCL 10 MG TABLET (FOR DETOX USE ONLY) PO SCH (10:00)
[2017-12-04] MEDS: AMOX TR/POT CLAV 875MG/125MG TABLETS (FP) PO SCH ×2 (10:10→17:02)
[2017-12-04] MEDS: PRENATAL VITAMINS W/ FOLIC ACID TABLET (FP) PO SCH (10:11)
[2017-12-04] MEDS: NICOTINE 14 MG/24 HOURS TOPICAL PATCH TD SCH (10:11)
[2017-12-04] MEDS: NICOTINE POLACRILEX 2 MG GUM BC PRN ×3 (10:12→19:04)
[2017-12-04] MEDS ORDERED: CYCLOBENZAPRINE HCL 10 MG TABLET (FP) PO PRN (10:18)
[2017-12-04] MEDS: hydrOXYzine PAMOATE 50 MG CAPSULE (FP) PO PRN ×2 (10:27→17:01)
[2017-12-04] MEDS: IBUPROFEN 400 MG TABLET (FP) PO PRN ×2 (10:27→19:03)
[2017-12-04] MEDS: BACITRACIN 15 GM TUBE TOPICAL OINTMENT TP SCH ×2 (10:51→22:12)
[2017-12-04] MEDS: QUEtiapine FUMARATE 100 MG TABLET (FP) PO SCH (22:12)
[2017-12-04] MEDS: ZOLPIDEM TARTRATE 10 MG TABLET (PARK CARE ONLY) PO PRN (22:12)
[2017-12-04] MEDS: THIAMINE HCL 100 MG TABLET (FP) PO SCH (22:14)
[2017-12-05] MEDS ORDERED: METHADONE HCL 5 MG TABLET (FOR DETOX USE ONLY) PO SCH (06:00)
[2017-12-05 06:06] VITALS: BP 103/79; PULSE 84; TEMP 97.7
[2017-12-05] MEDS: AMOX TR/POT CLAV 875MG/125MG TABLETS (FP) PO SCH (07:10)
--- NOTE | 2017-12-05 08:35 | PN ---
S Progress Note (SOAP) Subjective: ALERT,NO COMPLAINT Objective: 12/05/17 08:34 Vital Signs Temperature 97.7 F 12/05/17 06:00 Pulse Rate 84 12/05/17 06:00 Respiratory Rate 16 12/05/17 06:00 Blood Pressure 103/79 12/05/17 06:00 O2 Sat by Pulse Oximetry (%) Assessment: 12/05/17 08:34 DETOX COMPLETED,NO WITHDRAWAL SYMPTOM Plan: DISCHARGE TODAY,FOLLOW UP WITH AFTER CARE PROGRAM ARRANGEMENT
--- NOTE | 2017-12-05 08:41 | DS ---
[facility] Detox Discharge Summary Admission Date: 11/30/17 Discharge Date: 12/05/17 - History Present History: Alcohol Dependence, Cocaine Dependence, Opioid Dependence, Sedative Dependence Additional Comments: FOLLOW UP WITH AFTER CARE PROGRAM ARRANGEMENT Pertinent Past History: HEPATITIS C ABSCESS OF RIGHT THIGH INSOMNIA,ANXIETY AND DEPRESSION - Physical Exam Results Vital Signs: Vital Signs Temperature 97.7 F 12/05/17 06:00 Pulse Rate 84 12/05/17 06:00 Respiratory Rate 16 12/05/17 06:00 Blood Pressure 103/79 12/05/17 06:00 O2 Sat by Pulse Oximetry (%) Pertinent Admission Physical Exam Findings: WITHDRAWAL SIGNS AN SYMPTOM Vital Signs Temperature 97.7 F 12/05/17 06:00 Pulse Rate 84 12/05/17 06:00 Respiratory Rate 16 12/05/17 06:00 Blood Pressure 103/79 12/05/17 06:00 O2 Sat by Pulse Oximetry (%) Laboratory Last Values WBC 5.7 K/mm3 (4.0-10.0) 12/01/17 07:30 RBC 4.33 M/mm3 (3.60-5.2) 12/01/17 07:30 Hgb 12.6 GM/dL (10.7-15.3) 12/01/17 07:30 Hct 37.3 % (32.4-45.2) 12/01/17 07:30 MCV 86.1 fl (80-96) 12/01/17 07:30 MCH 29.0 pg (25.7-33.7) 12/01/17 07:30 MCHC 33.7 g/dl (32.0-36.0) 12/01/17 07:30 RDW 14.2 % (11.6-15.6) 12/01/17 07:30 Plt Count 450 K/MM3 (134-434) H D 12/01/17 07:30 MPV 7.0 fl (7.5-11.1) L 12/01/17 07:30 Sodium 138 mmol/L (136-145) 12/01/17 07:30 Potassium 3.9 mmol/L (3.5-5.1) 12/01/17 07:30 Chloride 104 mmol/L (98-107) 12/01/17 07:30 Carbon Dioxide 28 mmol/L (21-32) 12/01/17 07:30 Anion Gap 6 (8-16) L 12/01/17 07:30 BUN 15 mg/dL (7-18) 12/01/17 07:30 Creatinine 0.7 mg/dL (0.55-1.02) 12/01/17 07:30 Creat Clearance w eGFR > 60 (>60) 12/01/17 07:30 Random Glucose 87 mg/dL (74-106) 12/01/17 07:30 Calcium 8.7 mg/dL (8.5-10.1) 12/01/17 07:30 Total Bilirubin 0.2 mg/dL (0.2-1.0) D 12/01/17 07:30 AST 11 U/L (15-37) L 12/01/17 07:30 ALT 18 U/L (12-78) 12/01/17 07:30 Alkaline Phosphatase 89 U/L (45-117) 12/01/17 07:30 Total Protein 8.1 g/dl (6.4-8.2) 12/01/17 07:30 Albumin 3.1 g/dl (3.4-5.0) L 12/01/17 07:30 Urine Color Dkyellow 12/02/17 23:00 Urine Appearance Turbid 12/02/17 23:00 Urine pH 7.0 (5.0-8.0) 12/02/17 23:00 Ur Specific [place] 1.021 (1.001-1.035) 12/02/17 23:00 Urine Protein 1+ (NEGATIVE) H 12/02/17 23:00 Urine Glucose (UA) Negative (NEGATIVE) 12/02/17 23:00 Urine Ketones Negative (NEGATIVE) 12/02/17 23:00 Urine Blood Negative (NEGATIVE) 12/02/17 23:00 Urine Nitrite Negative (NEGATIVE) 12/02/17 23:00 Urine Bilirubin Negative (<2.0 mg/dL) 12/02/17 23:00 Urine Urobilinogen 2.0 mg/dL (0.2-1.0) H 12/02/17 23:00 Ur Leukocyte Esterase 1+ (NEGATIVE) H 12/02/17 23:00 Urine WBC (Auto) 29 /hpf (3-5) 12/02/17 23:00 Urine RBC (Auto) 4 /hpf (0-3) 12/02/17 23:00 Ur Epithelial Cells Few /HPF (FEW) 12/02/17 23:00 Calcium Oxalate Crystal Few /hpf (NONE SEEN) 11/30/17 21:00 Urine Bacteria Rare /hpf (NONE SEEN) 12/02/17 23:00 Urine Mucus Few 12/02/17 23:00 Urine Yeast Many 12/02/17 23:00 RPR Titer Nonreactive (NONREACTIVE) 12/01/17 07:30 - Treatment Hospital Course: Detox Protocol Followed, Detoxed Safely, Responded well, Discharged Condition Good Patient has Accepted a Rehab Referral to: DECLINED - Medication Discharge Medications: Ambulatory Orders Trazodone HCl 150 mg PO HS 11/30/17 traZODone HCL [Desyrel -] 150 mg PO HS #30 tablet 12/01/17 Amox-Tr/K Cl [Augmentin 875-125mg Tablet -] 1 tab PO BID@0800,1730 #10 tablet - Diagnosis (1) Opioid dependence with withdrawal Current Visit: Yes Status: Acute (2) Abscess Current Visit: Yes Status: Acute (3) Alcohol dependence with uncomplicated withdrawal Current Visit: Yes Status: Acute (4) Cocaine dependence Current Visit: Yes Status: Acute Qualifiers: Substance use status: uncomplicated Qualified Code(s): F14.20 - Cocaine dependence, uncomplicated (5) Sedative, hypnotic or anxiolytic dependence with withdrawal, uncomplicated Current Visit: Yes Status: Acute (6) Hepatitis C Current Visit: Yes Status: Chronic (7) Nicotine dependence Current Visit: Yes Status: Chronic Qualifiers: Nicotine product type: cigarettes Substance use status: uncomplicated Qualified Code(s): F17.210 - Nicotine dependence, cigarettes, uncomplicated (8) Weight loss Current Visit: No Status: Acute - AMA Did Patient Leave Against Medical Advice: No
== END 2017-12-05 08:50 | disposition home or self-care (01) | DRG 773 ==
LOC: YASAS 13:09 → Y6N 17:17
PROVIDERS: ADMIT Internal Medicine; ATTEND Internal Medicine
PROC: HZ2ZZZZ Detoxification Services for Substance Abuse Treatment (ICD-10-PCS; principal; 2017-11-30)
DX: F11.23 Opioid dependence with withdrawal (principal); F13.230 Sedative, hypnotic or anxiolytic dependence with withdrawal, uncomplicated; F10.230 Alcohol dependence with withdrawal, uncomplicated; F14.20 Cocaine dependence, uncomplicated; F12.20 Cannabis dependence, uncomplicated; F17.210 Nicotine dependence, cigarettes, uncomplicated; F19.282 Other psychoactive substance dependence with psychoactive substance-induced sleep disorder; R63.4 Abnormal weight loss; Z68.1 Body mass index [BMI] 19.9 or less, adult; G47.00 Insomnia, unspecified; F41.9 Anxiety disorder, unspecified; F32.9 Major depressive disorder, single episode, unspecified
CPT/HCPCS: 36415; 80053; 81003; 81015; 85027; 86593; 93005; 93010

== ENCOUNTER 2018-01-08 09:06 | Inpatient (IN) | payer OTHER ==
[2018-01-08 10:32] VITALS: BMI 22.3
--- NOTE | 2018-01-08 11:25 | HP ---
COWS - Scale Resting Pulse: 0= [place] 80 or Below Sweatin=Flushed/Facial Moisture Restless Observation: 1= Difficult to Sit Still Pupil Size: 1= Pupils >than Normal Bone or Joint Aches: 2= Severe Diffuse Aches Runny Nose/ Eye Tearin= Runny Nose/Eyes GI Upset > 30mins: 2= Nausea/Diarrhea Tremor Observation: 1= Tremor [place], Not Seen Yawning Observation: 1= 1-2x During Session Anxiety or Irritability: 1=Feels Anxious/Irritable Goose Flesh Skin: 0=Smooth Skin COWS Score: 13 CIWA Score - CIWA Score Nausea/Vomitin Muscle Tremors: 1-None Visible, but [place] Anxiety: 2 Agitation: 1-Slight > Activity Paroxysmal Sweats: 2 Orientation: 0-Oriented Tacttile Disturbances: 2-Mild Itch/Numbness/Burn Auditory Disturbances: 0-None Visual Disturbances: 0-None Headache: 3-Moderate CIWA-Ar Total Score: 13 Admission ROS S - HPI Chief Complaint: Heroin/ETOH withdrawal symptoms. Allergies/Adverse Reactions: Allergies Allergy/AdvReac Type Severity Reaction Status Date / Time No Known Allergies Allergy Verified 01/08/18 10:49 History of Present Illness: Patient presents with Heroin/ETOH withdrawal symptoms. Patient began injecting Heroin 23 years of age. Injects up to 4 bundles daily. Started drinking at age 21 and drinks 1 pint of [place] every other day. Has history of seizures from ETOH use. Last seizure 3-5 years ago. Patient also sniffs non-prescription Xanax and uses up to 20mg daily. Last use Heroin/Xanax was this morning. Has history of Hep C (treated in 2005) and Depression. Denies SI/HI and suicide attempts. Last detox admission was last month here at [facility]. Treated with suboxone in past. Occasional Marajuana use reported by patient. Exam Limitations: No Limitations - Ebola screening Have you traveled outside of the country in the last 21 days: No (N) Have you had contact with anyone from an Ebola affected area: No Have you been sick,other than usual withdrawal symptoms: No Do you have a fever: No - Review of Systems Constitutional: Night Sweats, Changes in sleep, Unintentional Wgt. Loss EENT: reports: Tearing, Nose Congestion Respiratory: reports: No Symptoms reported Cardiac: reports: No Symptoms Reported GI: reports: Diarrhea, Nausea, Poor Fluid Intake, Vomiting, Abdominal cramping : reports: No Symptoms Reported Musculoskeletal: reports: Back Pain, Joint Pain, Muscle Pain Integumentary: reports: Sweating Neuro: reports: Headache, Seizure, Tremors Endocrine: reports: Unexplained Weight Loss Hematology: reports: Anemia Psychiatric: reports: Orientated x3, Anxious, Depressed Patient History - Patient Medical History Hx Anemia: Yes (Not on meds) Hx Asthma: No Hx Chronic Obstructive Pulmonary Disease (COPD): No Hx Cancer: No Hx Cardiac Disorders: No Hx Congestive Heart Failure: No Hx Hypertension: No Hx Hypercholesterolemia: No Hx Pacemaker: No HX Cerebrovascular Accident: No Hx Seizures: Yes (drug related seizures last 2 yrs ago.) Hx Dementia: No Hx Diabetes: No Hx Gastrointestinal Disorders: No Hx Liver Disease: Yes (Hep C, Treated 2005, but relapsed after.) Hx Genitourinary Disorders: No Hx Sexually Transmitted Disorders: No Hx Renal Disease (ESRD): No Hx Thyroid Disease: No Hx Human Immunodeficiency Virus (HIV): No Hx Hepatitis C: Yes (2005, treated with Interferon and ribavirin, relapsed after.) Hx Depression: Yes Hx Suicide Attempt: Yes (tried to overdose at age 17 yrs old.) Hx Bipolar Disorder: No Hx Schizophrenia: No - Patient Surgical History Past Surgical History: Yes Hx Neurologic Surgery: No Hx Cataract Extraction: No Hx Cardiac Surgery: No Hx Lung Surgery: No Hx Breast Surgery: No Hx Breast Biopsy: No Hx Abdominal Surgery: No Hx Appendectomy: No Hx Cholecystectomy: No Hx Genitourinary Surgery: No Hx Section: No Hx Orthopedic Surgery: Yes (lt. hand surgery tendon repair (age 17), I&D of abcesses (age 27).) Hx Hysterectomy: No Anesthesia Reaction: No - PPD History Previous Implant?: Yes Documented Results: Negative w/proof Implanted On Prior R Admission?: Yes Date: 12/02/17 Results: 0 mm PPD to be Administered?: No - Reproductive History Last Menstrual Period: 01/02/18 Patient : No - Smoking Cessation Smoking history: Current every day smoker Have you smoked in the past 12 months: Yes Aproximately how many cigarettes per day: 10 Cigars Per Day: 0 Hx Chewing Tobacco Use: No Initiated information on smoking cessation: Yes 'Breaking Loose' booklet given: 01/08/18 - Substance & Tx. History Hx Alcohol Use: Yes Hx Substance Use: Yes Substance Use Type: Alcohol, Cocaine, Marijuana, Opiates Hx Substance Use Treatment: Yes - Substances Abused Heroin Route: Injection Frequency: Daily Amount used: 10-20 bags Age of first use: 21 Date of Last Use: 01/08/18 Alprazolam (Xanax) Route: Oral Frequency: Daily Amount used: 4-10mg Age of first use: 34 Date of Last Use: 01/07/18 Cocaine Route: Injection Frequency: 1-2 times per week Amount used: $20 Age of first use: 21 Date of Last Use: 01/06/18 Marijuana/Hashish Route: Smoking Frequency: 1-2 times per week Amount used: 1-2 drags of joint Age of first use: 14 Date of Last Use: 01/07/18 Alcohol Route: Oral Frequency: 3-6 times per week Amount used: 1/2 pint whiskey Age of first use: 21 Date of Last Use: 01/07/18 Family Disease History - Family Disease History Family Disease History: Diabetes: Father, Heart Disease: Grandparent (HTN.) Admission Physical Exam [facility] - Vital Signs Vital Signs: Vital Signs - 24 hr 01/08/18 10:08 Temperature 96.9 F L Pulse Rate 73 Respiratory 20 Rate Blood Pressure 106/66 - Physical General Appearance: Yes: Disheveled, Sweating, Anxious HEENTM: Yes: EOMI, Hearing grossly Normal, Normocephalic, Normal Voice, AHMET, Pharynx Normal, Nasal Congestion Respiratory: Yes: Chest Non-Tender, Lungs Clear, Normal Breath Sounds, No Respiratory Distress, No Accessory Muscle Use Neck: Yes: Within Normal Limits, No masses,lesions,Nodules, Supple Breast: Yes: Breast Exam Deferred Cardiology: Yes: Regular Rhythm, Regular Rate, S1, S2 Abdominal: Yes: Normal Bowel Sounds, Non Tender, Flat, Soft Genitourinary: Yes: Within Normal Limits Back: Yes: Muscle Spasm Musculoskeletal: Yes: full range of Motion, Gait Steady, Back pain, Muscle Pain Extremities: Yes: Normal Range of Motion, Non-Tender, Tremors, Swelling Neurological: Yes: 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-XII NML intact, Fully Oriented, Alert, Normal Response , Depressed Affect Integumentary: Yes: Normal Color, Warm, Moist, Track Gray Lymphatic: Yes: Within Normal Limits - Diagnostic (1) Alcohol dependence with uncomplicated withdrawal Current Visit: Yes Status: Acute (2) Cannabis dependence Current Visit: Yes Status: Chronic (3) Cocaine dependence Current Visit: Yes Status: Chronic Qualifiers: Substance use status: uncomplicated Qualified Code(s): F14.20 - Cocaine dependence, uncomplicated (4) Opioid dependence with withdrawal Current Visit: Yes Status: Acute (5) Sedative, hypnotic or anxiolytic dependence with withdrawal, uncomplicated Current Visit: Yes Status: Acute (6) Bipolar disorder Current Visit: Yes Status: Chronic Qualifiers: Active/Remission status: remission status unspecified Qualified Code(s): F31.9 - Bipolar disorder, unspecified (7) Nicotine dependence Current Visit: Yes Status: Chronic Qualifiers: Nicotine product type: cigarettes Substance use status: uncomplicated Qualified Code(s): F17.210 - Nicotine dependence, cigarettes, uncomplicated Cleared for Admission [facility] - Detox or Rehab [facility] Level of Care: Medically Managed Detox Regimen/Protocol: Methadone/Valium S Breath Alcohol Content Breath Alcohol Content: 0 Urine Pregancy Test - Result Urine Test Results: Negative- NO Line Present Urine Drug Screen - Results Drug Screen Negative: No Urine Drug Screen Results: THC-Marijuana, SANDEEP-Cocaine, OPI-Opiates, BZO- Benzodiazepines, OXY-Oxycodone
[2018-01-08] MEDS ORDERED: MAGNESIUM HYDROX 2400MG/30ML ORAL SUSPENSION 30 ML CUP PO PRN (11:33)
[2018-01-08] MEDS ORDERED: MENTHOL/PHENOL 1 EACH UD MM PRN (11:33)
[2018-01-08] MEDS ORDERED: guaiFENesin/D-METHORPHAN HB 10 ML UNIT-DOSE CUPS PO PRN (11:33)
[2018-01-08] MEDS ORDERED: MAGNESIUM CITRATE 300 ML BOTTLE PO PRN (11:33)
[2018-01-08] MEDS ORDERED: hydrOXYzine PAMOATE 50 MG CAPSULE (FP) PO PRN (11:33)
[2018-01-08] MEDS ORDERED: IBUPROFEN 400 MG TABLET (FP) PO PRN (11:33)
[2018-01-08] MEDS ORDERED: NICOTINE POLACRILEX 2 MG GUM BC PRN (11:33)
[2018-01-08] MEDS ORDERED: MAG HYDROX/AL HYDROX/SIMETH 30 ML UNIT-DOSE CUP PO PRN (11:33)
[2018-01-08] MEDS ORDERED: P-EPHED 60MG/TRIPROLIDI 2.5MG TABLET PO PRN (11:33)
[2018-01-08] MEDS ORDERED: ACETAMINOPHEN 325 MG TABLET (FP) PO PRN (11:33)
[2018-01-08] MEDS ORDERED: LOPERAMIDE HCL 2 MG CAPSULE PO PRN (11:33)
[2018-01-08] MEDS ORDERED: METHADONE HCL 10 MG TABLET (FOR DETOX USE ONLY) PO ONE ×2 (13:45→23:00)
[2018-01-08] MEDS ORDERED: diazePAM 5 MG TABLET PO ONE (13:45)
[2018-01-08] MEDS: diazePAM 5 MG TABLET PO SCH ×2 (15:23→22:34)
[2018-01-08 17:25] LABS: URINE APPEARANCE CLOUDY; URINE BILIRUBIN NEGATIVE (<2.0 mg/dL); URINE COLOR YELLOW; URINE GLUCOSE (UA) NEGATIVE (NEGATIVE); URINE KETONE NEGATIVE (NEGATIVE); URINE LEUK ESTERASE NEGATIVE (NEGATIVE); URINE NITRITE NEGATIVE (NEGATIVE); URINE PROTEIN NEGATIVE (NEGATIVE); URINE UROBILINOGEN NEGATIVE mg/dL (0.2-1.0)
[2018-01-08] MEDS ORDERED: MELATONIN 5 MG TABLETS PO PRN (22:00)
[2018-01-08] MEDS: THIAMINE HCL 100 MG TABLET (FP) PO SCH (22:34)
[2018-01-09] MEDS: diazePAM 5 MG TABLET PO SCH ×3 (05:47→22:22)
[2018-01-09] MEDS ORDERED: METHADONE HCL 10 MG TABLET (FOR DETOX USE ONLY) PO SCH (10:00)
[2018-01-09] MEDS: NICOTINE 21 MG/24 HOURS TOPICAL PATCH TD SCH (10:37)
[2018-01-09] MEDS: ASPIRIN 81 MG CHEWABLE TABLETS PO SCH (10:37)
[2018-01-09] MEDS: PRENATAL VITAMINS W/ FOLIC ACID TABLET (FP) PO SCH (10:38)
[2018-01-09 11:16] LABS: MEAN PLT VOLUME 7.4 fl (7.5-11.1); RDW 14.3 % (11.6-15.6)
[2018-01-09 11:18] LABS: HEMATOCRIT 38.9 % (32.4-45.2); HEMOGLOBIN 13.5 GM/dL (10.7-15.3); MCH 30.2 pg (25.7-33.7); MCHC 34.6 g/dl (32.0-36.0); MEAN CELL VOLUME 87.2 fl (80-96); PLATELET COUNT 316 K/MM3 (134-434); RBC 4.46 M/mm3 (3.60-5.2); WHITE BLOOD COUNT 5.9 K/mm3 (4.0-10.0)
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
[2018-01-09 12:05] LABS: ALBUMIN 3.6 g/dl (3.4-5.0); CHLORIDE 101 mmol/L (98-107); POTASSIUM 4.9 mmol/L (3.5-5.1); SODIUM 138 mmol/L (136-145)
[2018-01-09 12:14] LABS: ALK PHOS 84 U/L (45-117); ANION GAP 8 (8-16); BILIRUBIN,TOTAL 0.4 mg/dL (0.2-1.0); BLOOD UREA NITROGEN 15 mg/dL (7-18); CO2 29 mmol/L (21-32); CREATININE 0.9 mg/dL (0.55-1.02); GLUCOSE,RANDOM 91 mg/dL (74-106); SGOT/AST 12 U/L (15-37); SGPT/ALT 16 U/L (12-78); TOT PROT 8.5 g/dl (6.4-8.2)
--- NOTE | 2018-01-09 12:29 | PN ---
[facility] CIWA - CIWA Score Nausea/Vomitin-Mild Nausea/No Vomiting Muscle Tremors: 3 Anxiety: 3 Agitation: 2 Paroxysmal Sweats: 1-Minimal Palms Moist Orientation: 0-Oriented Tacttile Disturbances: 1-Very Mild Itch/Numbness Auditory Disturbances: 0-None Visual Disturbances: 0-None Headache: 1-Very Mild CIWA-Ar Total Score: 12 [facility] COWS - Scale Resting Pulse: 0= [place] 80 or Below Sweatin= Chills/Flushing Restless Observation: 1= Difficult to Sit Still Pupil Size: 0= Normal to Room Light Bone or Joint Aches: 2= Severe Diffuse Aches Runny Nose/ Eye Tearin= Nasal Congestion GI Upset > 30mins: 2= Nausea/Diarrhea Tremor Observation of Outstretched Hands: 1= Tremor [place], Not Seen Yawning Observation: 2= >3x During Session Anxiety or Irritability: 2=Irritable/Anxious Goose Flesh Skin: 0=Smooth Skin COWS Score: 12 [facility] Progress Note (SOAP) Subjective: sweat tremor joint pain body ache anxiety restlessness Objective: 01/09/18 12:28 Vital Signs Temperature 97.9 F 01/09/18 10:28 Pulse Rate 68 01/09/18 10:28 Respiratory Rate 18 01/09/18 10:28 Blood Pressure 115/80 01/09/18 10:28 O2 Sat by Pulse Oximetry (%) Laboratory Last Values WBC 5.9 K/mm3 (4.0-10.0) 01/09/18 07:00 RBC 4.46 M/mm3 (3.60-5.2) 01/09/18 07:00 Hgb 13.5 GM/dL (10.7-15.3) 01/09/18 07:00 Hct 38.9 % (32.4-45.2) 01/09/18 07:00 MCV 87.2 fl (80-96) 01/09/18 07:00 MCH 30.2 pg (25.7-33.7) 01/09/18 07:00 MCHC 34.6 g/dl (32.0-36.0) 01/09/18 07:00 RDW 14.3 % (11.6-15.6) 01/09/18 07:00 Plt Count 316 K/MM3 (134-434) D 01/09/18 07:00 MPV 7.4 fl (7.5-11.1) L 01/09/18 07:00 Sodium 138 mmol/L (136-145) 01/09/18 07:00 Potassium 4.9 mmol/L (3.5-5.1) 01/09/18 07:00 Chloride 101 mmol/L (98-107) 01/09/18 07:00 Carbon Dioxide 29 mmol/L (21-32) 01/09/18 07:00 Anion Gap 8 (8-16) 01/09/18 07:00 BUN 15 mg/dL (7-18) 01/09/18 07:00 Creatinine 0.9 mg/dL (0.55-1.02) 01/09/18 07:00 Creat Clearance w eGFR > 60 (>60) 01/09/18 07:00 Random Glucose 91 mg/dL (74-106) 01/09/18 07:00 Calcium 9.0 mg/dL (8.5-10.1) 01/09/18 07:00 Total Bilirubin 0.4 mg/dL (0.2-1.0) D 01/09/18 07:00 AST 12 U/L (15-37) L 01/09/18 07:00 ALT 16 U/L (12-78) 01/09/18 07:00 Alkaline Phosphatase 84 U/L (45-117) 01/09/18 07:00 Total Protein 8.5 g/dl (6.4-8.2) H 01/09/18 07:00 Albumin 3.6 g/dl (3.4-5.0) 01/09/18 07:00 Urine Color Yellow 01/08/18 13:45 Urine Appearance Cloudy 01/08/18 13:45 Urine pH 6.0 (5.0-8.0) 01/08/18 13:45 Ur Specific [place] 1.020 (1.001-1.035) 01/08/18 13:45 Urine Protein Negative (NEGATIVE) 01/08/18 13:45 Urine Glucose (UA) Negative (NEGATIVE) 01/08/18 13:45 Urine Ketones Negative (NEGATIVE) 01/08/18 13:45 Urine Blood Negative (NEGATIVE) 01/08/18 13:45 Urine Nitrite Negative (NEGATIVE) 01/08/18 13:45 Urine Bilirubin Negative (<2.0 mg/dL) 01/08/18 13:45 Urine Urobilinogen Negative mg/dL (0.2-1.0) 01/08/18 13:45 Ur Leukocyte Esterase Negative (NEGATIVE) 01/08/18 13:45 lab noted Assessment: 01/09/18 12:29 withdrawal sx Plan: continue detox
[2018-01-09] MEDS: diazePAM 5 MG TABLET PO PRN (17:51)
[2018-01-09] MEDS ORDERED: QUEtiapine FUMARATE 100 MG TABLET (FP) PO SCH (22:00)
[2018-01-09] MEDS: THIAMINE HCL 100 MG TABLET (FP) PO SCH (22:21)
--- NOTE | 2018-01-10 09:55 | PN ---
[facility] CIWA - CIWA Score Nausea/Vomitin-Mild Nausea/No Vomiting Muscle Tremors: 3 Anxiety: 2 Agitation: 2 Paroxysmal Sweats: 1-Minimal Palms Moist Orientation: 0-Oriented Tacttile Disturbances: 1-Very Mild Itch/Numbness Auditory Disturbances: 0-None Visual Disturbances: 0-None Headache: 0-None Present CIWA-Ar Total Score: 10 [facility] COWS - Scale Resting Pulse: 0= [place] 80 or Below Sweatin= Chills/[place] Restless Observation: 1= Difficult to Sit Still Pupil Size: 0= Normal to Room Light Bone or Joint Aches: 1= Mild Discomfort Runny Nose/ Eye Tearin= Nasal Congestion GI Upset > 30mins: 2= Nausea/Diarrhea Tremor Observation of Outstretched Hands: 1= Tremor [place], Not Seen Yawning Observation: 2= >3x During Session Anxiety or Irritability: 1=Feels Anxious/Irritable Goose Flesh Skin: 0=Smooth Skin COWS Score: 10 [facility] Progress Note (SOAP) Subjective: joint pain body ache tremor sweat anxiety restlessness trouble sleep at night Objective: 01/10/18 09:54 Vital Signs Temperature 97.7 F 01/10/18 09:54 Pulse Rate 100 H 01/10/18 09:54 Respiratory Rate 18 01/10/18 09:54 Blood Pressure 106/77 01/10/18 09:54 O2 Sat by Pulse Oximetry (%) Laboratory Last Values WBC 5.9 K/mm3 (4.0-10.0) 01/09/18 07:00 RBC 4.46 M/mm3 (3.60-5.2) 01/09/18 07:00 Hgb 13.5 GM/dL (10.7-15.3) 01/09/18 07:00 Hct 38.9 % (32.4-45.2) 01/09/18 07:00 MCV 87.2 fl (80-96) 01/09/18 07:00 MCH 30.2 pg (25.7-33.7) 01/09/18 07:00 MCHC 34.6 g/dl (32.0-36.0) 01/09/18 07:00 RDW 14.3 % (11.6-15.6) 01/09/18 07:00 Plt Count 316 K/MM3 (134-434) D 01/09/18 07:00 MPV 7.4 fl (7.5-11.1) L 01/09/18 07:00 Sodium 138 mmol/L (136-145) 01/09/18 07:00 Potassium 4.9 mmol/L (3.5-5.1) 01/09/18 07:00 Chloride 101 mmol/L (98-107) 01/09/18 07:00 Carbon Dioxide 29 mmol/L (21-32) 01/09/18 07:00 Anion Gap 8 (8-16) 01/09/18 07:00 BUN 15 mg/dL (7-18) 01/09/18 07:00 Creatinine 0.9 mg/dL (0.55-1.02) 01/09/18 07:00 Creat Clearance w eGFR > 60 (>60) 01/09/18 07:00 Random Glucose 91 mg/dL (74-106) 01/09/18 07:00 Calcium 9.0 mg/dL (8.5-10.1) 01/09/18 07:00 Total Bilirubin 0.4 mg/dL (0.2-1.0) D 01/09/18 07:00 AST 12 U/L (15-37) L 01/09/18 07:00 ALT 16 U/L (12-78) 01/09/18 07:00 Alkaline Phosphatase 84 U/L (45-117) 01/09/18 07:00 Total Protein 8.5 g/dl (6.4-8.2) H 01/09/18 07:00 Albumin 3.6 g/dl (3.4-5.0) 01/09/18 07:00 Urine Color Yellow 01/08/18 13:45 Urine Appearance Cloudy 01/08/18 13:45 Urine pH 6.0 (5.0-8.0) 01/08/18 13:45 Ur Specific [place] 1.020 (1.001-1.035) 01/08/18 13:45 Urine Protein Negative (NEGATIVE) 01/08/18 13:45 Urine Glucose (UA) Negative (NEGATIVE) 01/08/18 13:45 Urine Ketones Negative (NEGATIVE) 01/08/18 13:45 Urine Blood Negative (NEGATIVE) 01/08/18 13:45 Urine Nitrite Negative (NEGATIVE) 01/08/18 13:45 Urine Bilirubin Negative (<2.0 mg/dL) 01/08/18 13:45 Urine Urobilinogen Negative mg/dL (0.2-1.0) 01/08/18 13:45 Ur Leukocyte Esterase Negative (NEGATIVE) 01/08/18 13:45 RPR Titer Nonreactive (NONREACTIVE) 01/09/18 07:00 lab noted Assessment: 01/10/18 09:57 withdrawal sx Plan: continue detox
[2018-01-10] MEDS ORDERED: METHADONE HCL 5 MG TABLET (FOR DETOX USE ONLY) PO SCH (10:00)
[2018-01-10] MEDS ORDERED: diazePAM 5 MG TABLET PO SCH (10:00)
[2018-01-10] MEDS: NICOTINE 21 MG/24 HOURS TOPICAL PATCH TD SCH (10:16)
[2018-01-10] MEDS: ASPIRIN 81 MG CHEWABLE TABLETS PO SCH (10:16)
[2018-01-10] MEDS: PRENATAL VITAMINS W/ FOLIC ACID TABLET (FP) PO SCH (10:16)
[2018-01-10] MEDS: diazePAM 5 MG TABLET PO PRN ×2 (14:09→20:02)
[2018-01-10 17:24] VITALS: BP 111/65; PULSE 89; TEMP 98.2
--- NOTE | 2018-01-10 21:04 | PN ---
[facility] Progress Note Note: Patient leaving AMA despite encouragement to stay. Laboratory Last Values WBC 5.9 K/mm3 (4.0-10.0) 01/09/18 07:00 RBC 4.46 M/mm3 (3.60-5.2) 01/09/18 07:00 Hgb 13.5 GM/dL (10.7-15.3) 01/09/18 07:00 Hct 38.9 % (32.4-45.2) 01/09/18 07:00 MCV 87.2 fl (80-96) 01/09/18 07:00 MCH 30.2 pg (25.7-33.7) 01/09/18 07:00 MCHC 34.6 g/dl (32.0-36.0) 01/09/18 07:00 RDW 14.3 % (11.6-15.6) 01/09/18 07:00 Plt Count 316 K/MM3 (134-434) D 01/09/18 07:00 MPV 7.4 fl (7.5-11.1) L 01/09/18 07:00 Sodium 138 mmol/L (136-145) 01/09/18 07:00 Potassium 4.9 mmol/L (3.5-5.1) 01/09/18 07:00 Chloride 101 mmol/L (98-107) 01/09/18 07:00 Carbon Dioxide 29 mmol/L (21-32) 01/09/18 07:00 Anion Gap 8 (8-16) 01/09/18 07:00 BUN 15 mg/dL (7-18) 01/09/18 07:00 Creatinine 0.9 mg/dL (0.55-1.02) 01/09/18 07:00 Creat Clearance w eGFR > 60 (>60) 01/09/18 07:00 Random Glucose 91 mg/dL (74-106) 01/09/18 07:00 Calcium 9.0 mg/dL (8.5-10.1) 01/09/18 07:00 Total Bilirubin 0.4 mg/dL (0.2-1.0) D 01/09/18 07:00 AST 12 U/L (15-37) L 01/09/18 07:00 ALT 16 U/L (12-78) 01/09/18 07:00 Alkaline Phosphatase 84 U/L (45-117) 01/09/18 07:00 Total Protein 8.5 g/dl (6.4-8.2) H 01/09/18 07:00 Albumin 3.6 g/dl (3.4-5.0) 01/09/18 07:00 Urine Color Yellow 01/08/18 13:45 Urine Appearance Cloudy 01/08/18 13:45 Urine pH 6.0 (5.0-8.0) 01/08/18 13:45 Ur Specific [place] 1.020 (1.001-1.035) 01/08/18 13:45 Urine Protein Negative (NEGATIVE) 01/08/18 13:45 Urine Glucose (UA) Negative (NEGATIVE) 01/08/18 13:45 Urine Ketones Negative (NEGATIVE) 01/08/18 13:45 Urine Blood Negative (NEGATIVE) 01/08/18 13:45 Urine Nitrite Negative (NEGATIVE) 01/08/18 13:45 Urine Bilirubin Negative (<2.0 mg/dL) 01/08/18 13:45 Urine Urobilinogen Negative mg/dL (0.2-1.0) 01/08/18 13:45 Ur Leukocyte Esterase Negative (NEGATIVE) 01/08/18 13:45 RPR Titer Nonreactive (NONREACTIVE) 01/09/18 07:00 Vital Signs - 24 hr 01/09/18 01/10/18 01/10/18 22:45 00:30 03:30 Temperature 98.1 F Pulse Rate 61 Respiratory 16 18 18 Rate Blood Pressure 106/63 01/10/18 01/10/18 01/10/18 06:20 09:54 13:23 Temperature 97.7 F 98.8 F Pulse Rate 100 H 84 Respiratory 18 18 18 Rate Blood Pressure 106/77 106/78 01/10/18 17:23 Temperature 98.2 F Pulse Rate 89 Respiratory 20 Rate Blood Pressure 111/65 Risks of relapse and overdose discussed. Discharging AMA.
--- NOTE | 2018-01-10 21:11 | DS ---
[facility] Detox Discharge Summary Admission Date: 01/08/18 Discharge Date: 01/10/18 (AMA) - History Pertinent Past History: Did not complete detox and unwilling to stay. - Physical Exam Results Vital Signs: Vital Signs Temperature 98.2 F 01/10/18 17:23 Pulse Rate 89 01/10/18 17:23 Respiratory Rate 20 01/10/18 17:23 Blood Pressure 111/65 01/10/18 17:23 O2 Sat by Pulse Oximetry (%) - Treatment Hospital Course: Discharged Condition Good (Some anxiety. Alert and oriented.) - Medication Discharge Medications: Ambulatory Orders Quetiapine Fumarate [Seroquel] 100 mg PO HS #30 tablet 01/09/18 - Diagnosis (1) Alcohol dependence with uncomplicated withdrawal Current Visit: Yes Status: Acute (2) Cannabis dependence Current Visit: Yes Status: Acute (3) Cocaine dependence Current Visit: Yes Status: Acute Qualifiers: Substance use status: uncomplicated Qualified Code(s): F14.20 - Cocaine dependence, uncomplicated (4) Opioid dependence with withdrawal Current Visit: Yes Status: Acute (5) Sedative, hypnotic or anxiolytic dependence with withdrawal, uncomplicated Current Visit: Yes Status: Acute (6) Bipolar disorder Current Visit: Yes Status: Chronic Qualifiers: Active/Remission status: remission status unspecified Qualified Code(s): F31.9 - Bipolar disorder, unspecified (7) Nicotine dependence Current Visit: Yes Status: Chronic Qualifiers: Nicotine product type: cigarettes Substance use status: uncomplicated Qualified Code(s): F17.210 - Nicotine dependence, cigarettes, uncomplicated - AMA Did Patient Leave Against Medical Advice: Yes (Risks of relapse and overdose discussed.)
[2018-01-12] MEDS ORDERED: diazePAM 5 MG TABLET PO SCH (10:00)
[2018-01-12] MEDS ORDERED: METHADONE HCL 10 MG TABLET (FOR DETOX USE ONLY) PO SCH (10:00)
[2018-01-13] MEDS ORDERED: METHADONE HCL 5 MG TABLET (FOR DETOX USE ONLY) PO SCH (06:00)
--- NOTE | 2018-01-13 07:05 | EKG ---
Test Reason : Blood Pressure : / mmHG Vent. Rate : 068 BPM Atrial Rate : 068 BPM P-R Int : 124 ms QRS Dur : 084 ms QT Int : 416 ms P-R-T Axes : 071 074 041 degrees QTc Int : 442 ms NORMAL SINUS RHYTHM WITH SINUS ARRHYTHMIA POSSIBLE LEFT ATRIAL ENLARGEMENT BORDERLINE ECG WHEN COMPARED WITH ECG OF 30-NOV-2017 19:29, NO SIGNIFICANT CHANGE WAS FOUND Confirmed by MARYANN RODRIGUEZ MD ([id number]) on 01/09/2018 12:00:49 PM Referred By: Confirmed By:MARYANN RODRIGUEZ MD
== END 2018-01-10 20:20 | disposition left against medical advice (07) | DRG 770 ==
LOC: YASAS 09:06 → Y6N 13:26
PROVIDERS: ADMIT Surgery; ATTEND Surgery
PROC: HZ2ZZZZ Detoxification Services for Substance Abuse Treatment (ICD-10-PCS; principal; 2018-01-08)
DX: F11.23 Opioid dependence with withdrawal (principal); F13.230 Sedative, hypnotic or anxiolytic dependence with withdrawal, uncomplicated; F10.230 Alcohol dependence with withdrawal, uncomplicated; F14.20 Cocaine dependence, uncomplicated; F12.20 Cannabis dependence, uncomplicated; F17.210 Nicotine dependence, cigarettes, uncomplicated; F31.9 Bipolar disorder, unspecified; F19.24 Other psychoactive substance dependence with psychoactive substance-induced mood disorder; F19.282 Other psychoactive substance dependence with psychoactive substance-induced sleep disorder; B18.2 Chronic viral hepatitis C; Z86.69 Personal history of other diseases of the nervous system and sense organs; Z91.5 Personal history of self-harm
CPT/HCPCS: 36415; 80053; 81003; 85027; 86593; 93005; 93010

== ENCOUNTER 2018-06-25 14:06 | Inpatient (IN) | payer OTHER ==
[2018-06-25 14:31] VITALS: BMI 23.0
--- NOTE | 2018-06-25 15:10 | HP ---
COWS - Scale Resting Pulse: 1= MS 81-100 Sweatin= Chills/Flushing Restless Observation: 1= Difficult to Sit Still Pupil Size: 1= Pupils >than Normal Bone or Joint Aches: 1= Mild Discomfort Runny Nose/ Eye Tearin= Runny Nose/Eyes GI Upset > 30mins: 2= Nausea/Diarrhea Tremor Observation: 1= Tremor [place], Not Seen Yawning Observation: 1= 1-2x During Session Anxiety or Irritability: 2=Irritable/Anxious Goose Flesh Skin: 0=Smooth Skin COWS Score: 13 CIWA Score - CIWA Score Nausea/Vomitin Muscle Tremors: 2 Anxiety: 3 Agitation: 2 Paroxysmal Sweats: 2 Orientation: 0-Oriented Tacttile Disturbances: 1-Very Mild Itch/Numbness (b/l finger tips) Auditory Disturbances: 0-None Visual Disturbances: 1-Very Mild Sensitivity Headache: 2-Mild CIWA-Ar Total Score: 15 Admission ROS BHS - HPI Chief Complaint: " I want to stop" opioid and xanax withdrawal symptoms Allergies/Adverse Reactions: Allergies Allergy/AdvReac Type Severity Reaction Status Date / Time No Known Allergies Allergy Verified 06/25/18 14:38 History of Present Illness: 37 yo female with hx of nicotine, xanax, heorin ( IV) dependence present for tx of withdrawal symptoms. Denies hx of seizure about two years ago, reports frequent blackouts from heroin and Xanax. overdose x 10, last episode two weeks ago. HEP C, asthma, Hernia disc, Anemia, depression. Denies suicidal / homicidal ideation at this time. Reports past psych admission "mood swing" [facility]. Denies any legal troubles at this time Exam Limitations: No Limitations - Ebola screening Have you traveled outside of the country in the last 21 days: No Have you had contact with anyone from an Ebola affected area: No Have you been sick,other than usual withdrawal symptoms: No Do you have a fever: No - Review of Systems Constitutional: Chills, Changes in sleep, Weakness, Other (fatigue) EENT: reports: Nose Congestion Respiratory: reports: No Symptoms reported Cardiac: reports: No Symptoms Reported GI: reports: Diarrhea, Nausea, Poor Appetite, Poor Fluid Intake : reports: No Symptoms Reported Musculoskeletal: reports: Back Pain Integumentary: reports: Dryness Neuro: reports: Headache Endocrine: reports: Increased Thirst Hematology: reports: Anemia Psychiatric: reports: Orientated x3, Depressed Other Systems: Reviewed and Negative Patient History - Patient Medical History Hx Anemia: Yes (Not on meds) Hx Asthma: Yes Hx Chronic Obstructive Pulmonary Disease (COPD): No Hx Cancer: No Hx Cardiac Disorders: No Hx Congestive Heart Failure: No Hx Hypertension: No Hx Hypercholesterolemia: No Hx Pacemaker: No HX Cerebrovascular Accident: No Hx Seizures: Yes (drug related seizures last 2 yrs ago.) Hx Dementia: No Hx Diabetes: No Hx Gastrointestinal Disorders: No Hx Liver Disease: Yes (Hep C, Treated 2005, but relapsed after.) Hx Genitourinary Disorders: No Hx Sexually Transmitted Disorders: No Hx Renal Disease (ESRD): No Hx Thyroid Disease: No Hx Human Immunodeficiency Virus (HIV): No Hx Hepatitis C: Yes (2005, treated with Interferon and ribavirin, relapsed after.) Hx Depression: Yes Hx Suicide Attempt: Yes (tried to overdose at age 17 yrs old.) Hx Bipolar Disorder: No Hx Schizophrenia: No - Patient Surgical History Past Surgical History: Yes Hx Neurologic Surgery: No Hx Cataract Extraction: No Hx Cardiac Surgery: No Hx Lung Surgery: No Hx Breast Surgery: No Hx Breast Biopsy: No Hx Abdominal Surgery: No Hx Appendectomy: No Hx Cholecystectomy: No Hx Genitourinary Surgery: No Hx Section: No Hx Orthopedic Surgery: Yes (lt. hand surgery tendon repair (age 17), I&D of abcesses (age 27).) Hx Hysterectomy: No Anesthesia Reaction: No - PPD History Previous Implant?: Yes Documented Results: Negative w/proof Implanted On Prior [facility] Admission?: Yes Date: 12/02/17 Results: 0 mm PPD to be Administered?: No - Reproductive History Patient is a Female of Child Bearing Age (11 -55 yrs old): Yes Last Menstrual Period: 06/21/18 Patient : No - Smoking Cessation Smoking history: Current every day smoker Have you smoked in the past 12 months: Yes Aproximately how many cigarettes per day: 10 Cigars Per Day: 0 Hx Chewing Tobacco Use: No Initiated information on smoking cessation: Yes 'Breaking Loose' booklet given: 06/25/18 - Substance & Tx. History Hx Alcohol Use: No Hx Substance Use: Yes Substance Use Type: Heroin, Tranquilizers Hx Substance Use Treatment: Yes (Detox [facility] 01/08/18 -01/10/18 left AMA) - Substances Abused Heroin Route: Injection Frequency: Daily Amount used: 2-5 bundles Age of first use: 23 Date of Last Use: 06/25/18 Alprazolam (Xanax) Route: Inhalation Frequency: Daily Amount used: 5 x 2mg tablet Age of first use: 31 Date of Last Use: 06/24/18 Family Disease History - Family Disease History Family Disease History: Diabetes: Father, Heart Disease: Grandparent (HTN.) Admission Physical Exam [facility] - Vital Signs Vital Signs: Vital Signs - 24 hr 06/25/18 14:28 Temperature 97.5 F L Pulse Rate 88 Respiratory 20 Rate Blood Pressure 105/70 - Physical General Appearance: Yes: Disheveled, Mild Distress, Thin, Sweating, Anxious, Other (tearful) HEENTM: Yes: Hearing grossly Normal, Normal ENT Inspection, Normocephalic, Normal Voice, AHMET, Pharynx Normal, Tm's normal, Rhinorrhea Respiratory: Yes: Chest Non-Tender, Lungs Clear, Normal Breath Sounds, No Respiratory Distress, No Accessory Muscle Use Neck: Yes: Within Normal Limits Breast: Yes: Breast Exam Deferred Cardiology: Yes: Regular Rhythm, Regular Rate Abdominal: Yes: Normal Bowel Sounds, Non Tender, Flat, Soft Genitourinary: Yes: Within Normal Limits Back: Yes: Normal Inspection Musculoskeletal: Yes: Back pain Extremities: Yes: Normal Capillary Refill, Normal Inspection, Normal Range of Motion, Non-Tender Neurological: Yes: wax pattern coater II-XII NML intact, Fully Oriented, Alert, Motor Strength 5/5, Depressed Affect Integumentary: Yes: Normal Color, Warm, Clammy, Track Gray (both legs and forearms no infection. Multiple scars thrught legs and arms from injecting.) Lymphatic: Yes: Within Normal Limits - Diagnostic (1) Asthma Current Visit: Yes Status: Chronic Qualifiers: Asthma severity: mild Asthma persistence: unspecified Asthma complication type: unspecified Qualified Code(s): J45.998 - Other asthma (2) Opioid dependence with withdrawal Current Visit: Yes Status: Acute (3) Sedative, hypnotic or anxiolytic dependence with withdrawal, uncomplicated Current Visit: Yes Status: Acute (4) Weight loss Current Visit: Yes Status: Acute (5) Anemia Current Visit: Yes Status: Chronic Qualifiers: Anemia type: unspecified type Qualified Code(s): D64.9 - Anemia, unspecified (6) Hepatitis C Current Visit: Yes Status: Chronic Qualifiers: Viral hepatitis chronicity: chronic Hepatic coma status: without hepatic coma Qualified Code(s): B18.2 - Chronic viral hepatitis C (7) Nicotine dependence Current Visit: Yes Status: Chronic Qualifiers: Nicotine product type: cigarettes Substance use status: uncomplicated Qualified Code(s): F17.210 - Nicotine dependence, cigarettes, uncomplicated (8) IVDU (intravenous drug user) Current Visit: Yes Status: Acute Cleared for Admission S - Detox or Rehab [facility] Level of Care: Medically Managed Detox Regimen/Protocol: Methadone/Valium [facility] Breath Alcohol Content Breath Alcohol Content: 0 Urine Pregancy Test - Result Urine Test Results: Negative- NO Line Present Urine Drug Screen - Results Drug Screen Negative: No Urine Drug Screen Results: OPI-Opiates, BZO-Benzodiazepines, FEN-Fentanyl
[2018-06-25] MEDS ORDERED: ACETAMINOPHEN 325 MG TABLET (FP) PO PRN (15:20)
[2018-06-25] MEDS ORDERED: LOPERAMIDE HCL 2 MG CAPSULE PO PRN (15:20)
[2018-06-25] MEDS ORDERED: P-EPHED 60MG/TRIPROLIDI 2.5MG TABLET PO PRN (15:20)
[2018-06-25] MEDS ORDERED: MENTHOL/PHENOL 1 EACH UD MM PRN (15:20)
[2018-06-25] MEDS ORDERED: guaiFENesin/D-METHORPHAN HB 10 ML UNIT-DOSE CUPS PO PRN (15:20)
[2018-06-25] MEDS ORDERED: IBUPROFEN 400 MG TABLET (FP) PO PRN (15:20)
[2018-06-25] MEDS ORDERED: MAG HYDROX/AL HYDROX/SIMETH 30 ML UNIT-DOSE CUP PO PRN (15:20)
[2018-06-25] MEDS ORDERED: MAGNESIUM HYDROX 2400MG/30ML ORAL SUSPENSION 30 ML CUP PO PRN (15:20)
[2018-06-25] MEDS ORDERED: MAGNESIUM CITRATE 300 ML BOTTLE PO PRN (15:20)
[2018-06-25] MEDS ORDERED: NICOTINE POLACRILEX 2 MG GUM BUC PRN (15:20)
[2018-06-25] MEDS ORDERED: diazePAM 5 MG TABLET PO ONE (15:45)
[2018-06-25] MEDS ORDERED: METHADONE HCL 10 MG TABLET (FOR DETOX USE ONLY) PO ONE ×2 (17:00→23:00)
[2018-06-25] MEDS: diazePAM 5 MG TABLET PO PRN (20:45)
[2018-06-25] MEDS: CYCLOBENZAPRINE HCL 5 MG TABLET PO SCH (22:51)
[2018-06-25] MEDS: THIAMINE HCL 100 MG TABLET (FP) PO SCH (22:52)
[2018-06-25] MEDS: diazePAM 5 MG TABLET PO SCH (22:52)
[2018-06-26 00:45] LABS: URINE APPEARANCE TURBID; URINE BILIRUBIN NEGATIVE (<2.0 mg/dL); URINE COLOR YELLOW; URINE GLUCOSE (UA) NEGATIVE (NEGATIVE); URINE KETONE NEGATIVE (NEGATIVE); URINE LEUK ESTERASE NEGATIVE (NEGATIVE); URINE NITRITE NEGATIVE (NEGATIVE); URINE PROTEIN 1+ (NEGATIVE); URINE UROBILINOGEN 4.0 E.U/dl mg/dL (0.2-1.0)
[2018-06-26 00:53] LABS: CALCIUM OXALATE CRYSTALS FEW /hpf (NONE SEEN); EPI CELLS RARE /HPF (FEW)
[2018-06-26 00:54] LABS: AMORP URATES 4+ /hpf (NONE SEEN)
[2018-06-26] MEDS: diazePAM 5 MG TABLET PO SCH ×3 (06:35→22:14)
[2018-06-26] MEDS: CYCLOBENZAPRINE HCL 5 MG TABLET PO SCH ×3 (06:36→22:14)
--- NOTE | 2018-06-26 07:34 | CONSULT ---
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 As per chert with Bipolar Disorder history. Denies suicidal, homicidal history Substance Abuse History: Smoking history: Current every day smoker. Have you smoked in the past 12 months: Yes. Aproximately how many cigarettes per day: 10. Cigars Per Day: 0. Hx Chewing Tobacco Use: No. Initiated information on smoking cessation: Yes. 'Breaking Loose' booklet given: 06/25/18. - Substance & Tx. History. Hx Alcohol Use: No. Hx Substance Use: Yes. Substance Use Type : Heroin, Tranquilizers. Hx Substance Use Treatment: Yes (Detox [facility] 01/08/18 - left AMA). - Substances Abused. Heroin. Route: Injection. Frequency: Daily. Amount used: 2-5 bundles. Age of first use: 23. Date of Last Use: 06/25/18. Alprazolam (Xanax). Route: Inhalation. Frequency: Daily. Amount used: 5 x 2mg tablet. Age of first use: 31. Date of Last Use: 06/24/18 Medical History: Anemia history, Asthma, Herniation disks history. Psychiatric History: Patient reports history of depression and anxiety, as per computer carries Bipolar Disorder, denies psychiatric hospitalization history, denies ssuicidal, homicidal history, reports taking prior to admission: Seroquel 100mg po qhs for insomnia. Physical/Sexual Abuse/Trauma History: Denies Additional Comment: Seroquel 100mg po qhs Mental Status Exam - Mental Status Exam Alert and Oriented to: Person Cognitive Function: Fair Patient Appearance: Unkempt Mood: Sad Affect: Flat Patient Behavior: Cooperative Speech Pattern: Delayed Voice Loudness: Mildly Soft/Quiet Thought Process: Circumstantial Thought Disorder: Being Controlled Hallucinations: Denies Suicidal Ideation: Denies Homicidal Ideation: Denies Insight/Judgement: Fair Sleep: Difficulty falling asleep Appetite: Weight loss Muscle strength/Tone: Mild Hypotonicity Gait/Station: Shuffling Additional Comments: Seroquel 100mg po qhs Psychiatric Findings - Problem List ([place] 1, 2,3) (1) Opioid dependence with withdrawal Current Visit: Yes Status: Acute (2) Sedative, hypnotic or anxiolytic dependence with withdrawal, uncomplicated Current Visit: Yes Status: Acute (3) Weight loss Current Visit: Yes Status: Acute (4) Anemia Current Visit: Yes Status: Chronic Qualifiers: Anemia type: unspecified type Qualified Code(s): D64.9 - Anemia, unspecified (5) Asthma Current Visit: Yes Status: Chronic Qualifiers: Asthma severity: mild Asthma persistence: unspecified Asthma complication type: unspecified Qualified Code(s): J45.998 - Other asthma (6) Hepatitis C Current Visit: Yes Status: Chronic Qualifiers: Viral hepatitis chronicity: chronic Hepatic coma status: without hepatic coma Qualified Code(s): B18.2 - Chronic viral hepatitis C (7) Nicotine dependence Current Visit: Yes Status: Chronic Qualifiers: Nicotine product type: cigarettes Substance use status: uncomplicated Qualified Code(s): F17.210 - Nicotine dependence, cigarettes, uncomplicated (8) Abscess Current Visit: No Status: Acute (9) Alcohol dependence with uncomplicated withdrawal Current Visit: No Status: Acute (10) Cannabis dependence Current Visit: No Status: Acute (11) Cocaine dependence Current Visit: No Status: Acute Qualifiers: Substance use status: uncomplicated Qualified Code(s): F14.20 - Cocaine dependence, uncomplicated (12) Substance induced mood disorder Current Visit: No Status: Acute (13) Substance induced mood disorder Current Visit: No Status: Acute (14) Substance-induced sleep disorder Current Visit: No Status: Acute (15) Anorexia nervosa with bulimia Current Visit: No Status: Chronic (16) Bipolar disorder Current Visit: No Status: Chronic Qualifiers: Active/Remission status: remission status unspecified Qualified Code(s): F31.9 - Bipolar disorder, unspecified (17) Encounter for monitoring Suboxone maintenance therapy Current Visit: No Status: Chronic Comment: 8-2 MG X 2 FILMS DAILY VERIFIED BY PHARMACY LABLE - Initial Treatment Plan Initial Treatment Plan: Seroquel 100mg po qhs
[2018-06-26] MEDS ORDERED: METHADONE HCL 10 MG TABLET (FOR DETOX USE ONLY) PO ONE (10:00)
[2018-06-26] MEDS: diazePAM 5 MG TABLET PO PRN ×2 (10:21→16:23)
[2018-06-26] MEDS: PRENATAL VITAMINS W/ FOLIC ACID TABLET (FP) PO SCH (10:21)
[2018-06-26] MEDS: NICOTINE 14 MG/24 HOURS TOPICAL PATCH TD SCH (10:22)
[2018-06-26 10:25] LABS: HEMATOCRIT 36.8 % (32.4-45.2); HEMOGLOBIN 12.1 GM/dL (10.7-15.3); MCHC 32.7 g/dl (32.0-36.0); MEAN CELL VOLUME 85.7 fl (80-96); MEAN PLT VOLUME 7.2 fl (7.5-11.1); PLATELET COUNT 239 K/MM3 (134-434); RDW 14.8 % (11.6-15.6); WHITE BLOOD COUNT 4.9 K/mm3 (4.0-10.0)
[2018-06-26 10:44] LABS: ALBUMIN 3.3 g/dl (3.4-5.0); ALK PHOS 85 U/L (45-117); ANION GAP 10 MMOL/L (8-16); BILIRUBIN,TOTAL 0.4 mg/dL (0.2-1); BLOOD UREA NITROGEN 13 mg/dL (7-18); CALCIUM 8.5 mg/dL (8.5-10.1); CHLORIDE 105 mmol/L (98-107); CO2 24 mmol/L (21-32); CREATININE 0.5 mg/dL (0.55-1.3); GLUCOSE,RANDOM 84 mg/dL (74-106); POTASSIUM 3.9 mmol/L (3.5-5.1); SGOT/AST 14 U/L (15-37); SGPT/ALT 22 U/L (13-61); SODIUM 139 mmol/L (136-145); TOT PROT 7.8 g/dl (6.4-8.2)
--- NOTE | 2018-06-26 11:27 | PN ---
S CIWA - CIWA Score Nausea/Vomitin-Mild Nausea/No Vomiting Muscle Tremors: 4-Moderate,w/Arms Extend Anxiety: 3 Agitation: 4-Moderately Restless Paroxysmal Sweats: 3 Orientation: 0-Oriented Tacttile Disturbances: 0-None Auditory Disturbances: 0-None Visual Disturbances: 0-None Headache: 0-None Present CIWA-Ar Total Score: 15 BHS COWS - Scale Resting Pulse: 0= [place] 80 or Below Sweatin=Flushed/Facial Moisture Restless Observation: 1= Difficult to Sit Still Pupil Size: 0= Normal to Room Light Bone or Joint Aches: 2= Severe Diffuse Aches Runny Nose/ Eye Tearin= Nasal Congestion GI Upset > 30mins: 2= Nausea/Diarrhea Tremor Observation of Outstretched Hands: 2= Slight Tremor Visible Yawning Observation: 2= >3x During Session Anxiety or Irritability: 2=Irritable/Anxious Goose Flesh Skin: 0=Smooth Skin COWS Score: 14 S Progress Note (SOAP) Subjective: body aches sweats shakes chills anxiety irritable interrupted sleep Objective: 06/26/18 11:24 Vital Signs Temperature 97.7 F 06/26/18 09:15 Pulse Rate 55 L 06/26/18 09:15 Respiratory Rate 16 06/26/18 09:15 Blood Pressure 102/63 06/26/18 09:15 O2 Sat by Pulse Oximetry (%) Laboratory Tests 06/25/18 06/26/18 06/26/18 16:04 07:00 07:00 WBC 4.9 RBC 4.30 Hgb 12.1 Hct 36.8 MCV 85.7 MCH 28.0 MCHC 32.7 RDW 14.8 Plt Count 239 D MPV 7.2 L Sodium 139 Potassium 3.9 Chloride 105 Carbon Dioxide 24 Anion Gap 10 BUN 13 Creatinine 0.5 L Creat Clearance w eGFR > 60 Random Glucose 84 Calcium 8.5 Total Bilirubin 0.4 AST 14 L ALT 22 Alkaline Phosphatase 85 Total Protein 7.8 Albumin 3.3 L Urine Color Yellow Urine Appearance Turbid Urine pH 5.0 Ur Specific [place] 1.027 Urine Protein 1+ H Urine Glucose (UA) Negative Urine Ketones Negative Urine Blood Negative Urine Nitrite Negative Urine Bilirubin Negative Urine Urobilinogen 4.0 e.u/dl H Ur Leukocyte Esterase Negative Urine WBC (Auto) None Urine RBC (Auto) 11 Ur Epithelial Cells Rare Calcium Oxalate Crystal Few Amorphous Urates 4+ aaox3 ambulating no acute distress Assessment: 06/26/18 11:34 withdrawal sx Plan: continue detox increase fluids
--- NOTE | 2018-06-26 15:10 | EKG ---
Test Reason : Blood Pressure : / mmHG Vent. Rate : 067 BPM Atrial Rate : 067 BPM P-R Int : 122 ms QRS Dur : 080 ms QT Int : 374 ms P-R-T Axes : 069 076 047 degrees QTc Int : 395 ms SINUS RHYTHM WITH MARKED SINUS ARRHYTHMIA NONSPECIFIC ST ABNORMALITY ABNORMAL ECG WHEN COMPARED WITH ECG OF 08-JAN-2018 15:27, QT HAS SHORTENED Confirmed by MICHAEL GRAF, MARYANN ([id number]) on 06/26/2018 3:10:19 PM Referred By: Confirmed By:MARYANN RODRIGUEZ MD
--- NOTE | 2018-06-26 15:11 | EKG ---
Test Reason : Blood Pressure : / mmHG Vent. Rate : 066 BPM Atrial Rate : 066 BPM P-R Int : 114 ms QRS Dur : 080 ms QT Int : 372 ms P-R-T Axes : 071 077 060 degrees QTc Int : 389 ms SINUS RHYTHM WITH MARKED SINUS ARRHYTHMIA NONSPECIFIC ST ABNORMALITY ABNORMAL ECG WHEN COMPARED WITH ECG OF 08-JAN-2018 15:27, QT HAS SHORTENED Confirmed by MICHAEL GRAF, MARYANN ([id number]) on 06/26/2018 3:10:39 PM Referred By: Confirmed By:MARYANN RODRIGUEZ MD
[2018-06-26] MEDS: QUEtiapine FUMARATE 100 MG TABLET (FP) PO SCH (22:13)
[2018-06-26] MEDS: THIAMINE HCL 100 MG TABLET (FP) PO SCH (22:13)
[2018-06-26] MEDS: MELATONIN 5 MG TABLETS PO PRN (22:14)
[2018-06-27] MEDS: CYCLOBENZAPRINE HCL 5 MG TABLET PO SCH ×3 (07:46→22:16)
[2018-06-27] MEDS ORDERED: METHADONE HCL 5 MG TABLET (FOR DETOX USE ONLY) PO ONE (10:00)
[2018-06-27] MEDS: diazePAM 5 MG TABLET PO SCH ×2 (10:30→22:15)
[2018-06-27] MEDS: NICOTINE 14 MG/24 HOURS TOPICAL PATCH TD SCH (10:31)
[2018-06-27] MEDS: PRENATAL VITAMINS W/ FOLIC ACID TABLET (FP) PO SCH (10:31)
--- NOTE | 2018-06-27 11:14 | PN ---
[facility] CIWA - CIWA Score Nausea/Vomitin-No Nausea/No Vomiting Muscle Tremors: 4-Moderate,w/Arms Extend Anxiety: 3 Agitation: 3 Paroxysmal Sweats: 3 Orientation: 0-Oriented Tacttile Disturbances: 0-None Auditory Disturbances: 0-None Visual Disturbances: 0-None Headache: 0-None Present CIWA-Ar Total Score: 13 BHS COWS - Scale Resting Pulse: 0= [place] 80 or Below Sweatin=Flushed/Facial Moisture Restless Observation: 1= Difficult to Sit Still Pupil Size: 0= Normal to Room Light Bone or Joint Aches: 1= Mild Discomfort Runny Nose/ Eye Tearin= Nasal Congestion GI Upset > 30mins: 2= Nausea/Diarrhea Tremor Observation of Outstretched Hands: 2= Slight Tremor Visible Yawning Observation: 2= >3x During Session Anxiety or Irritability: 2=Irritable/Anxious Goose Flesh Skin: 0=Smooth Skin COWS Score: 13 S Progress Note (SOAP) Subjective: agitation anxiety body aches sweats shakes irritable Objective: 06/27/18 11:11 Vital Signs Temperature 97.9 F 06/27/18 09:28 Pulse Rate 78 06/27/18 09:28 Respiratory Rate 16 06/27/18 09:28 Blood Pressure 106/72 06/27/18 09:28 O2 Sat by Pulse Oximetry (%) Laboratory Tests 06/25/18 06/25/18 06/26/18 07:00 16:04 07:00 WBC 4.9 RBC 4.30 Hgb 12.1 Hct 36.8 MCV 85.7 MCH 28.0 MCHC 32.7 RDW 14.8 Plt Count 239 D MPV 7.2 L Sodium Potassium Chloride Carbon Dioxide Anion Gap BUN Creatinine Creat Clearance w eGFR Random Glucose Calcium Total Bilirubin AST ALT Alkaline Phosphatase Total Protein Albumin Urine Color Yellow Urine Appearance Turbid Urine pH 5.0 Ur Specific [place] 1.027 Urine Protein 1+ H Urine Glucose (UA) Negative Urine Ketones Negative Urine Blood Negative Urine Nitrite Negative Urine Bilirubin Negative Urine Urobilinogen 4.0 e.u/dl H Ur Leukocyte Esterase Negative Urine WBC (Auto) None Urine RBC (Auto) 11 Ur Epithelial Cells Rare Calcium Oxalate Crystal Few Amorphous Urates 4+ RPR Titer HIV 1&2 Antibody Screen Negative HIV P24 Antigen Negative 06/26/18 06/26/18 07:00 07:00 WBC RBC Hgb Hct MCV MCH MCHC RDW Plt Count MPV Sodium 139 Potassium 3.9 Chloride 105 Carbon Dioxide 24 Anion Gap 10 BUN 13 Creatinine 0.5 L Creat Clearance w eGFR > 60 Random Glucose 84 Calcium 8.5 Total Bilirubin 0.4 AST 14 L ALT 22 Alkaline Phosphatase 85 Total Protein 7.8 Albumin 3.3 L Urine Color Urine Appearance Urine pH Ur Specific [place] Urine Protein Urine Glucose (UA) Urine Ketones Urine Blood Urine Nitrite Urine Bilirubin Urine Urobilinogen Ur Leukocyte Esterase Urine WBC (Auto) Urine RBC (Auto) Ur Epithelial Cells Calcium Oxalate Crystal Amorphous Urates RPR Titer Nonreactive HIV 1&2 Antibody Screen HIV P24 Antigen aaox3 ambulating no acute distress Assessment: 06/27/18 11:11 withdrawal sx Plan: continue detox increase fluids
[2018-06-27] MEDS: diazePAM 5 MG TABLET PO PRN (13:59)
[2018-06-27] MEDS: THIAMINE HCL 100 MG TABLET (FP) PO SCH (22:15)
[2018-06-27] MEDS: QUEtiapine FUMARATE 100 MG TABLET (FP) PO SCH (22:16)
[2018-06-27] MEDS: MELATONIN 5 MG TABLETS PO PRN (22:16)
[2018-06-28] MEDS: CYCLOBENZAPRINE HCL 5 MG TABLET PO SCH ×3 (07:05→22:10)
[2018-06-28] MEDS ORDERED: METHADONE HCL 5 MG TABLET (FOR DETOX USE ONLY) PO ONE (10:00)
[2018-06-28] MEDS: diazePAM 5 MG TABLET PO SCH ×2 (10:25→22:10)
[2018-06-28] MEDS: PRENATAL VITAMINS W/ FOLIC ACID TABLET (FP) PO SCH (10:25)
[2018-06-28] MEDS: NICOTINE 14 MG/24 HOURS TOPICAL PATCH TD SCH (10:25)
--- NOTE | 2018-06-28 13:57 | PN ---
[facility] Progress Note Note: PATIENT CONTINUES WITH DETOX REGIMEN. PATIENT C/O INTERRUPTED SLEEP. Vital Signs Temperature 98.1 F 06/28/18 09:49 Pulse Rate 79 06/28/18 09:49 Respiratory Rate 18 06/28/18 09:49 Blood Pressure 109/72 06/28/18 09:49 O2 Sat by Pulse Oximetry (%) Laboratory Tests 06/25/18 06/25/18 06/26/18 07:00 16:04 07:00 WBC 4.9 RBC 4.30 Hgb 12.1 Hct 36.8 MCV 85.7 MCH 28.0 MCHC 32.7 RDW 14.8 Plt Count 239 D MPV 7.2 L Sodium Potassium Chloride Carbon Dioxide Anion Gap BUN Creatinine Creat Clearance w eGFR Random Glucose Calcium Total Bilirubin AST ALT Alkaline Phosphatase Total Protein Albumin Urine Color Yellow Urine Appearance Turbid Urine pH 5.0 Ur Specific [place] 1.027 Urine Protein 1+ H Urine Glucose (UA) Negative Urine Ketones Negative Urine Blood Negative Urine Nitrite Negative Urine Bilirubin Negative Urine Urobilinogen 4.0 e.u/dl H Ur Leukocyte Esterase Negative Urine WBC (Auto) None Urine RBC (Auto) 11 Ur Epithelial Cells Rare Calcium Oxalate Crystal Few Amorphous Urates 4+ RPR Titer HIV 1&2 Antibody Screen Negative HIV P24 Antigen Negative 06/26/18 06/26/18 07:00 07:00 WBC RBC Hgb Hct MCV MCH MCHC RDW Plt Count MPV Sodium 139 Potassium 3.9 Chloride 105 Carbon Dioxide 24 Anion Gap 10 BUN 13 Creatinine 0.5 L Creat Clearance w eGFR > 60 Random Glucose 84 Calcium 8.5 Total Bilirubin 0.4 AST 14 L ALT 22 Alkaline Phosphatase 85 Total Protein 7.8 Albumin 3.3 L Urine Color Urine Appearance Urine pH Ur Specific [place] Urine Protein Urine Glucose (UA) Urine Ketones Urine Blood Urine Nitrite Urine Bilirubin Urine Urobilinogen Ur Leukocyte Esterase Urine WBC (Auto) Urine RBC (Auto) Ur Epithelial Cells Calcium Oxalate Crystal Amorphous Urates RPR Titer Nonreactive HIV 1&2 Antibody Screen HIV P24 Antigen PE: SKIN WARM AND DRY ALERT AND ORIENTED X 3 AMB AD SHIRIN EXT FULL ROM A/P WITHDRAWAL SX CONTINUE DETOX ORDERED ENCOURAGE ORAL FLUIDS CONTINUE TO MONITOR CLINICALLY
[2018-06-28] MEDS: diazePAM 5 MG TABLET PO PRN (14:31)
[2018-06-28] MEDS: QUEtiapine FUMARATE 100 MG TABLET (FP) PO SCH (22:10)
[2018-06-28] MEDS: THIAMINE HCL 100 MG TABLET (FP) PO SCH (22:10)
[2018-06-29] MEDS: CYCLOBENZAPRINE HCL 5 MG TABLET PO SCH ×2 (06:17→14:23)
[2018-06-29] MEDS ORDERED: METHADONE HCL 10 MG TABLET (FOR DETOX USE ONLY) PO ONE (10:00)
[2018-06-29] MEDS ORDERED: diazePAM 5 MG TABLET PO SCH (10:00)
[2018-06-29] MEDS: NICOTINE 14 MG/24 HOURS TOPICAL PATCH TD SCH (10:28)
[2018-06-29] MEDS: PRENATAL VITAMINS W/ FOLIC ACID TABLET (FP) PO SCH (10:28)
--- NOTE | 2018-06-29 12:48 | PN ---
BHS Progress Note (SOAP) Subjective: feeling better no tremor less sweat no gi distress no body aches social with peers in day room Objective: 06/29/18 12:47 Vital Signs Temperature 98.4 F 06/29/18 09:40 Pulse Rate 93 H 06/29/18 09:40 Respiratory Rate 18 06/29/18 09:40 Blood Pressure 110/84 06/29/18 09:40 O2 Sat by Pulse Oximetry (%) Laboratory Last Values WBC 4.9 K/mm3 (4.0-10.0) 06/26/18 07:00 RBC 4.30 M/mm3 (3.60-5.2) 06/26/18 07:00 Hgb 12.1 GM/dL (10.7-15.3) 06/26/18 07:00 Hct 36.8 % (32.4-45.2) 06/26/18 07:00 MCV 85.7 fl (80-96) 06/26/18 07:00 MCH 28.0 pg (25.7-33.7) 06/26/18 07:00 MCHC 32.7 g/dl (32.0-36.0) 06/26/18 07:00 RDW 14.8 % (11.6-15.6) 06/26/18 07:00 Plt Count 239 K/MM3 (134-434) D 06/26/18 07:00 MPV 7.2 fl (7.5-11.1) L 06/26/18 07:00 Sodium 139 mmol/L (136-145) 06/26/18 07:00 Potassium 3.9 mmol/L (3.5-5.1) 06/26/18 07:00 Chloride 105 mmol/L (98-107) 06/26/18 07:00 Carbon Dioxide 24 mmol/L (21-32) 06/26/18 07:00 Anion Gap 10 MMOL/L (8-16) 06/26/18 07:00 BUN 13 mg/dL (7-18) 06/26/18 07:00 Creatinine 0.5 mg/dL (0.55-1.3) L 06/26/18 07:00 Creat Clearance w eGFR > 60 (>60) 06/26/18 07:00 Random Glucose 84 mg/dL (74-106) 06/26/18 07:00 Calcium 8.5 mg/dL (8.5-10.1) 06/26/18 07:00 Total Bilirubin 0.4 mg/dL (0.2-1) 06/26/18 07:00 AST 14 U/L (15-37) L 06/26/18 07:00 ALT 22 U/L (13-61) 06/26/18 07:00 Alkaline Phosphatase 85 U/L (45-117) 06/26/18 07:00 Total Protein 7.8 g/dl (6.4-8.2) 06/26/18 07:00 Albumin 3.3 g/dl (3.4-5.0) L 06/26/18 07:00 Urine Color Yellow 06/25/18 16:04 Urine Appearance Turbid 06/25/18 16:04 Urine pH 5.0 (5.0-8.0) 06/25/18 16:04 Ur Specific [place] 1.027 (1.010-1.035) 06/25/18 16:04 Urine Protein 1+ (NEGATIVE) H 06/25/18 16:04 Urine Glucose (UA) Negative (NEGATIVE) 06/25/18 16:04 Urine Ketones Negative (NEGATIVE) 06/25/18 16:04 Urine Blood Negative (NEGATIVE) 06/25/18 16:04 Urine Nitrite Negative (NEGATIVE) 06/25/18 16:04 Urine Bilirubin Negative (<2.0 mg/dL) 06/25/18 16:04 Urine Urobilinogen 4.0 e.u/dl mg/dL (0.2-1.0) H 06/25/18 16:04 Ur Leukocyte Esterase Negative (NEGATIVE) 06/25/18 16:04 Urine WBC (Auto) None /hpf (3-5) 06/25/18 16:04 Urine RBC (Auto) 11 /hpf (0-3) 06/25/18 16:04 Ur Epithelial Cells Rare /HPF (FEW) 06/25/18 16:04 Calcium Oxalate Crystal Few /hpf (NONE SEEN) 06/25/18 16:04 Amorphous Urates 4+ /hpf (NONE SEEN) 06/25/18 16:04 RPR Titer Nonreactive (NONREACTIVE) 06/26/18 07:00 HIV 1&2 Antibody Screen Negative 06/25/18 07:00 HIV P24 Antigen Negative 06/25/18 07:00 lab noted Assessment: 06/29/18 12:47 mild withdrawal sx Plan: medically supervised detox
[2018-06-29 17:56] VITALS: BP 122/70; PULSE 102; TEMP 97.5
--- NOTE | 2018-06-29 18:53 | PN ---
[facility] Progress Note Note: Provider was called to the floor because pt wanted to leave. Pt repeated that she wants to leave, states "i want to leave and that is that, i dont want to discuss anything" Pt not receptive to advise to stay to complete detox. Pt A & O x 3 at this time, chatting animatedly with a male patient, no signs of acute distress. Pt will sign out AMA.
--- NOTE | 2018-06-29 18:54 | DS ---
S Detox Discharge Summary Admission Date: 06/25/18 Discharge Date: 06/29/18 - History Additional Comments: pls see progress note - Physical Exam Results Vital Signs: Vital Signs Temperature 97.5 F L 06/29/18 17:55 Pulse Rate 102 H 06/29/18 17:55 Respiratory Rate 16 06/29/18 17:55 Blood Pressure 122/70 06/29/18 17:55 O2 Sat by Pulse Oximetry (%) - Medication Discharge Medications: Ambulatory Orders Quetiapine Fumarate [Seroquel] 100 mg PO HS #30 tablet 06/26/18 - AMA Did Patient Leave Against Medical Advice: Yes
[2018-06-30] MEDS ORDERED: METHADONE HCL 5 MG TABLET (FOR DETOX USE ONLY) PO ONE (06:00)
== END 2018-06-29 19:07 | disposition left against medical advice (07) | DRG 770 ==
LOC: YASAS 14:06 → Y6N 15:24
PROC: HZ2ZZZZ Detoxification Services for Substance Abuse Treatment (ICD-10-PCS; principal; 2018-06-25)
DX: F11.23 Opioid dependence with withdrawal (principal); F13.230 Sedative, hypnotic or anxiolytic dependence with withdrawal, uncomplicated; F14.20 Cocaine dependence, uncomplicated; F12.20 Cannabis dependence, uncomplicated; F17.210 Nicotine dependence, cigarettes, uncomplicated; F31.9 Bipolar disorder, unspecified; F19.282 Other psychoactive substance dependence with psychoactive substance-induced sleep disorder; F19.24 Other psychoactive substance dependence with psychoactive substance-induced mood disorder; F50.02 Anorexia nervosa, binge eating/purging type; D64.9 Anemia, unspecified; J45.909 Unspecified asthma, uncomplicated; B18.2 Chronic viral hepatitis C; L02.91 Cutaneous abscess, unspecified; R63.4 Abnormal weight loss; Z68.23 Body mass index [BMI] 23.0-23.9, adult; Z86.69 Personal history of other diseases of the nervous system and sense organs; Z51.81 Encounter for therapeutic drug level monitoring; Z91.5 Personal history of self-harm
CPT/HCPCS: 36415; 80053; 81003; 81015; 85027; 86593; 87389; 93005; 93010

== ENCOUNTER 2019-03-23 17:55 | Inpatient (IN) | payer OTHER ==
[2019-03-23 18:31] VITALS: BMI 19.8
--- NOTE | 2019-03-23 20:42 | HP ---
COWS - Scale Resting Pulse: 2= [place] 101-120 Sweatin=Flushed/Facial Moisture Restless Observation: 1= Difficult to Sit Still Pupil Size: 1= Pupils >than Normal Bone or Joint Aches: 2= Severe Diffuse Aches Runny Nose/ Eye Tearin= Runny Nose/Eyes GI Upset > 30mins: 1= Stomach Cramp Tremor Observation: 4= Gross Tremor/Twitching Yawning Observation: 1= 1-2x During Session Anxiety or Irritability: 4=Extreme Anxiety Goose Flesh Skin: 0=Smooth Skin COWS Score: 20 CIWA Score Nausea/Vomitin Muscle Tremors: 5 Anxiety: 5 Agitation: 1-Slight > Activity Paroxysmal Sweats: 2 Orientation: 1-Uncertain about Date Tacttile Disturbances: 0-None Auditory Disturbances: 0-None Visual Disturbances: 0-None Headache: 3-Moderate CIWA-Ar Total Score: 19 - Admission Criteria [facility] Guidelines: Admission for Medically Managed Detox: Requires at least one of the followin. CIWA greater than 12 2. Seizures within the past 24 hours 3. Delirium tremens within the past 24 hours 4. Hallucinations within the past 24 hours 5. Acute intervention needed for co occurring medical disorder 6. Acute intervention needed for co occurring psychiatric disorder 7. Severe withdrawal that cannot be handled at a lower level of care (continued vomiting, continued diarrhea, abnormal vital signs) requiring intravenous medication and/or fluids 8. Admission ROS [facility] Chief Complaint: Seeking admission to detox from benzodiazepine and heroin Allergies/Adverse Reactions: Allergies Allergy/AdvReac Type Severity Reaction Status Date / Time No Known Allergies Allergy Verified 03/23/19 18:22 History of Present Illness: 38 years old female with two years of benzodiazepine dependence and fourteen years of heroin and cocaine dependence is seeking admission to detox. Patient reports that she was last in detox for the the period 06/25/2019 - 06/29/2019 at [facility] and relapsed in November 2018. She has past medical history of Hep. C, asthma, anemia, seizure (treated with Interferon), depression and anxiety. She reports suicide attempt at age 17 and denies suicidal ideation at this time. Patient reports that she overdosed from Opiates 2 months ago Exam Limitations: No Limitations - Ebola screening Have you traveled outside of the country in the last 21 days: No (N) Have you had contact with anyone from an Ebola affected area: No Do you have a fever: No - Review of Systems Constitutional: Chills, Malaise, Night Sweats, Weakness EENT: reports: Nose Congestion Respiratory: reports: No Symptoms reported Cardiac: reports: No Symptoms Reported GI: reports: Poor Appetite, Poor Fluid Intake, Abdominal cramping Musculoskeletal: reports: Back Pain Integumentary: reports: Dryness, Flushing Neuro: reports: Headache, Tremors Endocrine: reports: No Symptoms Reported Hematology: reports: Anemia Psychiatric: reports: Anxious, Depressed Other Systems: Reviewed and Negative Patient History - Patient Medical History Hx Anemia: Yes (Not on medication) Hx Asthma: Yes (Not on medication) Hx Chronic Obstructive Pulmonary Disease (COPD): No Hx Cancer: No Hx Cardiac Disorders: No Hx Congestive Heart Failure: No Hx Hypertension: No Hx Hypercholesterolemia: No Hx Pacemaker: No HX Cerebrovascular Accident: No Hx Seizures: Yes (drug related seizures last 2 yrs ago.) Hx Dementia: No Hx Diabetes: No Hx Gastrointestinal Disorders: No Hx Liver Disease: Yes (Hep C, Treated 2005, but relapsed after.) Hx Genitourinary Disorders: No Hx Sexually Transmitted Disorders: No Hx Renal Disease (ESRD): No Hx Thyroid Disease: No Hx Human Immunodeficiency Virus (HIV): No Hx Hepatitis C: Yes (2005, treated with Interferon and ribavirin, relapsed after.) Hx Depression: Yes (Not on medication) Hx Suicide Attempt: Yes (tried to overdose at age 17 yrs old. denies suicidal ideation at this time) Hx Bipolar Disorder: No Hx Schizophrenia: No Other Medical History: Anxiety - Not on medication - Patient Surgical History Past Surgical History: Yes Hx Neurologic Surgery: No Hx Cataract Extraction: No Hx Cardiac Surgery: No Hx Lung Surgery: No Hx Breast Surgery: No Hx Breast Biopsy: No Hx Abdominal Surgery: No Hx Appendectomy: No Hx Cholecystectomy: No Hx Genitourinary Surgery: No Hx Section: No Hx Orthopedic Surgery: Yes (lt. hand surgery tendon repair (age 17), I&D of abcesses (age 27).) Hx Hysterectomy: No Anesthesia Reaction: No - PPD History Previous Implant?: Yes Implanted On Prior [facility] Admission?: Yes Date: 12/02/17 Results: 0 mm PPD to be Administered?: Yes - Reproductive History Patient is a Female of Child Bearing Age (11 -55 yrs old): Yes Last Menstrual Period: 07/20/19 Patient : No - Smoking Cessation Smoking history: Current every day smoker Have you smoked in the past 12 months: Yes Aproximately how many cigarettes per day: 10 Cigars Per Day: 0 Hx Chewing Tobacco Use: No Initiated information on smoking cessation: Yes 'Breaking Loose' booklet given: 03/23/19 - Substance & Tx. History Hx Alcohol Use: No Hx Substance Use: Yes Substance Use Type: Alcohol, Cocaine, Heroin, Marijuana, Opiates Hx Substance Use Treatment: Yes ([facility]) - Substances abused Heroin Substance route: Injection Frequency: Daily Amount used: 6 bags Age of first use: 24 Date of last use: 03/23/19 Benzodiazepine (Klonopin) Substance route: Inhalation Frequency: Daily Amount used: 2 pills Age of first use: 34 Date of last use: 03/23/19 Cocaine Substance route: Injection Frequency: Daily Amount used: $60 Age of first use: 24 Date of last use: 03/23/19 Family Disease History - Family Disease History Family Disease History: Diabetes: Father, Heart Disease: Grandparent (HTN.) Admission Physical Exam [facility] - Vital Signs Vital Signs: Vital Signs - 24 hr 03/23/19 03/23/19 18:25 18:55 Temperature 100.4 F H 100.4 F H Pulse Rate 102 H 102 H Respiratory 18 18 Rate Blood Pressure 93/66 93/66 - Physical General Appearance: Yes: Severe Distress, Tremorous, Irritable, Sweating, Anxious HEENTM: Yes: Sinus Tenderness Respiratory: Yes: Within Normal Limits Neck: Yes: Supple Breast: Yes: Breast Exam Deferred Cardiology: Yes: Tachycardia Abdominal: Yes: Normal Bowel Sounds, Soft Genitourinary: Yes: Within Normal Limits Back: Yes: Normal Inspection Musculoskeletal: Yes: Back pain, Muscle Pain Extremities: Yes: Tremors Neurological: Yes: purchasing/receiving II-XII NML intact, Alert, Normal Mood/Affect Integumentary: Yes: Warm, Track Thompson Lymphatic: Yes: Within Normal Limits - Addiitonal Findings: Track thompson both hands and both legs - Diagnostic (1) Seizure Current Visit: No Status: Chronic (2) Depression Current Visit: Yes Status: Acute Qualifiers: Depression Type: unspecified Qualified Code(s): F32.9 - Major depressive disorder, single episode, unspecified (3) Anxiety Current Visit: Yes Status: Chronic (4) Cannabis dependence Current Visit: Yes Status: Acute (5) Cocaine dependence Current Visit: Yes Status: Acute Qualifiers: Substance use status: uncomplicated Qualified Code(s): F14.20 - Cocaine dependence, uncomplicated (6) IVDU (intravenous drug user) Current Visit: Yes Status: Chronic (7) Opioid dependence with withdrawal Current Visit: No Status: Acute (8) Sedative, hypnotic or anxiolytic dependence with withdrawal, uncomplicated Current Visit: Yes Status: Acute (9) Anemia Current Visit: No Status: Chronic Qualifiers: Anemia type: iron deficiency (10) Asthma Current Visit: No Status: Chronic Qualifiers: Asthma severity: mild Asthma persistence: unspecified Asthma complication type: unspecified (11) Hepatitis C Current Visit: No Status: Chronic Qualifiers: Viral hepatitis chronicity: chronic Hepatic coma status: without hepatic coma Qualified Code(s): B18.2 - Chronic viral hepatitis C (12) Nicotine dependence Current Visit: Yes Status: Chronic Qualifiers: Nicotine product type: cigarettes Substance use status: uncomplicated Qualified Code(s): F17.210 - Nicotine dependence, cigarettes, uncomplicated Cleared for Admission S - Detox or Rehab [facility] Level of Care: Medically Managed Detox Regimen/Protocol: Methadone/Valium Breathalyzer - Breathalyzer Breathalyzer: 0 Urine Drug Screen - Test Device Lot number: [id number] Expiration date: 12/23/20 - Control Is test valid?: Yes - Results Drug screen NEGATIVE: No Urine drug screen results: THC-Marijuana, SANDEEP-Cocaine, AMP-Amphetamines, MOP- Opiates, OXY-Oxycodone, MTD-Methadone Inpatient Rehab Admission - Rehab Decision to Admit Inpatient rehab admission?: No
[2019-03-23] MEDS ORDERED: ACETAMINOPHEN 325 MG TABLET (FP) PO PRN ×2 (21:17)
[2019-03-23] MEDS ORDERED: MAGNESIUM HYDROX 2400MG/30ML ORAL SUSPENSION 30 ML CUP PO PRN (21:17)
[2019-03-23] MEDS ORDERED: BISMUTH SUBSALICYLATE 524 MG/30 ML UD PO PRN (21:17)
[2019-03-23] MEDS ORDERED: METHADONE HCL 10 MG TABLET (FOR DETOX USE ONLY) PO ONE (21:17)
[2019-03-23] MEDS ORDERED: MAG HYDROX/AL HYDROX/SIMETH 30 ML UNIT-DOSE CUP PO PRN (21:17)
[2019-03-23] MEDS ORDERED: MENTHOL/PHENOL 1 EACH UD MM PRN (21:17)
[2019-03-23] MEDS ORDERED: cloNIDine HCL 0.1 MG TABLET PO PRN (21:17)
[2019-03-23] MEDS ORDERED: MAGNESIUM CITRATE 300 ML BOTTLE PO PRN (21:17)
[2019-03-23] MEDS ORDERED: hydrOXYzine PAMOATE 25 MG CAPSULE (FP) PO PRN (21:17)
[2019-03-23] MEDS ORDERED: MELATONIN 5 MG TABLETS PO PRN (21:17)
[2019-03-23] MEDS ORDERED: IBUPROFEN 400 MG TABLET (FP) PO PRN (21:17)
[2019-03-23] MEDS: diazePAM 5 MG TABLET PO SCH (22:46)
[2019-03-23] MEDS: THIAMINE HCL 100 MG TABLET (FP) PO SCH (22:47)
[2019-03-24] MEDS: diazePAM 5 MG TABLET PO SCH ×3 (06:21→22:18)
[2019-03-24] MEDS ORDERED: METHADONE HCL 5 MG TABLET (FOR DETOX USE ONLY) ONE (08:17)
[2019-03-24] MEDS ORDERED: METHADONE HCL 10 MG TABLET (FOR DETOX USE ONLY) ONE (08:17)
--- NOTE | 2019-03-24 09:32 | EKG ---
Test Reason : Blood Pressure : / mmHG Vent. Rate : 080 BPM Atrial Rate : 080 BPM P-R Int : 120 ms QRS Dur : 080 ms QT Int : 352 ms P-R-T Axes : 075 073 054 degrees QTc Int : 405 ms NORMAL SINUS RHYTHM POSSIBLE LEFT ATRIAL ENLARGEMENT BORDERLINE ECG WHEN COMPARED WITH ECG OF 25-JUN-2018 15:55, NO SIGNIFICANT CHANGE WAS FOUND Confirmed by Zach Charles MD ([id number]) on 03/24/2019 9:31:46 AM Referred By: Confirmed By:Zach Charles MD
[2019-03-24] MEDS ORDERED: METHADONE (DETOX) 20 MG, METHADONE (DETOX) 5 MG PO ONE (10:00)
[2019-03-24] MEDS: diazePAM 5 MG TABLET PO PRN ×2 (10:28→16:49)
[2019-03-24] MEDS: PRENATAL VITAMINS W/ FOLIC ACID TABLET (FP) PO SCH (10:28)
[2019-03-24] MEDS: NICOTINE 14 MG/24 HOURS TOPICAL PATCH TD SCH (10:28)
[2019-03-24 10:38] LABS: ALBUMIN 2.7 g/dl (3.4-5.0); BILIRUBIN,TOTAL 0.2 mg/dL (0.2-1); BLOOD UREA NITROGEN 14.4 mg/dL (7-18); CALCIUM 8.7 mg/dL (8.5-10.1); CREATININE 0.7 mg/dL (0.55-1.3); POTASSIUM 3.8 mmol/L (3.5-5.1); TOT PROT 7.2 g/dl (6.4-8.2)
[2019-03-24 11:01] LABS: HEMATOCRIT 32.6 % (32.4-45.2); HEMOGLOBIN 10.7 GM/dL (10.7-15.3); MCH 27.1 pg (25.7-33.7); MCHC 32.7 g/dl (32.0-36.0); MEAN PLT VOLUME 7.7 fl (7.5-11.1); PLATELET COUNT 354 K/MM3 (134-434); RBC 3.93 M/mm3 (3.60-5.2); RDW 14.9 % (11.6-15.6); WHITE BLOOD COUNT 8.3 K/mm3 (4.0-10.0)
--- NOTE | 2019-03-24 12:56 | CONSULT ---
[facility] Psychiatric Consult - Data Date of interview: 03/24/19 Identifying data: Debt Collection Specialist approached patient for psychiatric consultation. Patient stated to residential mortgage underwriter, " I'm too tired to talk. i'm going to sleep." Psychiatric consultation refused.
[2019-03-24] MEDS: METHOCARBAMOL 500 MG TABLET PO PRN ×2 (15:15→22:21)
--- NOTE | 2019-03-24 15:15 | PN ---
[facility] CIWA - CIWA Score Nausea/Vomitin-No Nausea/No Vomiting Muscle Tremors: 3 Anxiety: 4-Mod. Anxious/Guarded Agitation: 1-Slight > Activity Paroxysmal Sweats: No Perspiration Orientation: 0-Oriented Tacttile Disturbances: 2-Mild Itch/Numbness/Burn Auditory Disturbances: 0-None Visual Disturbances: 2-Mild Sensitivity Headache: 0-None Present CIWA-Ar Total Score: 12 [facility] COWS - Scale Resting Pulse: 0= [place] 80 or Below Sweatin= No chills or Flushing Restless Observation: 0= Sits Still Pupil Size: 0= Normal to Room Light Bone or Joint Aches: 4=Acute Joint/Muscle Pain Runny Nose/ Eye Tearin= None GI Upset > 30mins: 0= None Tremor Observation of Outstretched Hands: 2= Slight Tremor Visible Yawning Observation: 1= 1-2x During Session Anxiety or Irritability: 2=Irritable/Anxious Goose Flesh Skin: 3=Piloerection COWS Score: 12 S Progress Note (SOAP) Subjective: Tremors, Body Aches, Anxious, Fatigue. Objective: PATIENT A & O X 3, OBSERVED AMBULATING ON UNIT UNASSISTED. IN NO ACUTE DISTRESS. 03/24/19 15:17 Vital Signs Temperature 98.2 F 03/24/19 13:09 Pulse Rate 74 03/24/19 13:09 Respiratory Rate 18 03/24/19 13:09 Blood Pressure 97/70 03/24/19 13:09 O2 Sat by Pulse Oximetry (%) Laboratory Tests 03/24/19 03/24/19 07:00 07:00 WBC 8.3 RBC 3.93 Hgb 10.7 Hct 32.6 MCV 83.0 MCH 27.1 MCHC 32.7 RDW 14.9 Plt Count 354 D MPV 7.7 Sodium 138 Potassium 3.8 Chloride 104 Carbon Dioxide 27 Anion Gap 7 L BUN 14.4 Creatinine 0.7 Est GFR (CKD-EPI)AfAm 127.39 Est GFR (CKD-EPI)NonAf 109.91 Random Glucose 93 Calcium 8.7 Total Bilirubin 0.2 AST 9 L ALT 19 Alkaline Phosphatase 71 Total Protein 7.2 Albumin 2.7 L LABS NOTED. RESULTS OF ADMISSION QFT /TB TEST AND OF RPR PENDING. 03/24/19 15:17 Assessment: 03/24/19 15:23 WITHDRAWAL SYMPTOMS. Plan: CONTINUE DETOX. INCREASE DAILY PO WATER INTAKE. PRN IBUPROFEN PO FOR SEVERE BODY ACHES (PATIENT REPORTS HISTORY OF RECENT FALL). LIDODERM PATCH FOR RESIDUAL PAIN LOWER BACK AND RIGHT RIBCAGE AREAS.
[2019-03-24] MEDS: LIDOCAINE 5% TOPICAL PATCH TP SCH (15:16)
[2019-03-24] MEDS: NICOTINE POLACRILEX 2 MG GUM BUC PRN (16:49)
[2019-03-24] MEDS: THIAMINE HCL 100 MG TABLET (FP) PO SCH (22:17)
[2019-03-24] MEDS: LIDOCAINE PATCH REMOVAL MC SCH (22:18)
[2019-03-24] MEDS: IBUPROFEN 400 MG TABLET (FP) PO PRN (22:20)
[2019-03-25] MEDS: diazePAM 5 MG TABLET PO SCH ×2 (05:39→17:11)
[2019-03-25] MEDS: METHOCARBAMOL 500 MG TABLET PO PRN ×3 (05:40→22:15)
[2019-03-25] MEDS ORDERED: METHADONE HCL 10 MG TABLET (FOR DETOX USE ONLY) PO ONE (10:00)
[2019-03-25] MEDS: PRENATAL VITAMINS W/ FOLIC ACID TABLET (FP) PO SCH (10:25)
[2019-03-25] MEDS: LIDOCAINE 5% TOPICAL PATCH TP SCH (10:25)
[2019-03-25] MEDS: IBUPROFEN 400 MG TABLET (FP) PO PRN ×2 (10:26→22:16)
[2019-03-25] MEDS: diazePAM 5 MG TABLET PO PRN ×3 (10:26→22:14)
[2019-03-25] MEDS: NICOTINE 14 MG/24 HOURS TOPICAL PATCH TD SCH (10:26)
--- NOTE | 2019-03-25 10:31 | PN ---
[facility] CIWA - CIWA Score Nausea/Vomitin-Mild Nausea/No Vomiting Muscle Tremors: 2 Anxiety: 2 Agitation: 2 Paroxysmal Sweats: 1-Minimal Palms Moist Orientation: 0-Oriented Tacttile Disturbances: 0-None Auditory Disturbances: 0-None Visual Disturbances: 0-None Headache: 1-Very Mild CIWA-Ar Total Score: 9 BHS COWS - Scale Resting Pulse: 1= [place] 81-100 Sweatin= Chills/Flushing Restless Observation: 1= Difficult to Sit Still Pupil Size: 1= Pupils >than Normal Bone or Joint Aches: 1= Mild Discomfort Runny Nose/ Eye Tearin= Nasal Congestion GI Upset > 30mins: 0= None Tremor Observation of Outstretched Hands: 1= Tremor [place], Not Seen Yawning Observation: 0= None Anxiety or Irritability: 1=Feels Anxious/Irritable Goose Flesh Skin: 0=Smooth Skin COWS Score: 8 S Progress Note (SOAP) Subjective: pt states feeling better on detox protocols, no complaints this morning O: Vital Signs - 24 hr 03/24/19 03/24/19 03/24/19 13:09 17:33 21:05 Temperature 98.2 F 97.8 F 96.7 F L Pulse Rate 74 81 72 Respiratory 18 18 16 Rate Blood Pressure 97/70 105/74 109/76 03/25/19 03/25/19 03/25/19 00:45 04:25 06:14 Temperature 96.8 F L Pulse Rate 73 Respiratory 18 18 16 Rate Blood Pressure 92/64 03/25/19 09:27 Temperature 96.8 F L Pulse Rate 63 Respiratory 18 Rate Blood Pressure 99/67 Laboratory Tests 03/24/19 03/24/19 07:00 07:00 WBC 8.3 RBC 3.93 Hgb 10.7 Hct 32.6 MCV 83.0 MCH 27.1 MCHC 32.7 RDW 14.9 Plt Count 354 D MPV 7.7 Sodium 138 Potassium 3.8 Chloride 104 Carbon Dioxide 27 Anion Gap 7 L BUN 14.4 Creatinine 0.7 Est GFR (CKD-EPI)AfAm 127.39 Est GFR (CKD-EPI)NonAf 109.91 Random Glucose 93 Calcium 8.7 Total Bilirubin 0.2 AST 9 L ALT 19 Alkaline Phosphatase 71 Total Protein 7.2 Albumin 2.7 L mild anemia HCT 32 low albumin a/p: continue detox protocols, consider watermaster methadone/suboxone and campral MAT treatment. f/u PCP for eval of anemia
[2019-03-25] MEDS: NICOTINE POLACRILEX 2 MG GUM BUC PRN ×2 (12:15→16:46)
--- NOTE | 2019-03-25 13:03 | PN ---
[facility] Progress Note Note: lidoderm patch came off in shower- another one ordered
[2019-03-25] MEDS ORDERED: LIDOCAINE 5% TOPICAL PATCH TP ONE (13:35)
[2019-03-25] MEDS ORDERED: LIDOCAINE PATCH REMOVAL MC SCH (22:00)
[2019-03-25] MEDS: LIDOCAINE PATCH REMOVAL MC SCH (22:14)
[2019-03-25] MEDS: THIAMINE HCL 100 MG TABLET (FP) PO SCH (22:18)
[2019-03-26] MEDS ORDERED: diazePAM 5 MG TABLET PO ONE (06:00)
[2019-03-26] MEDS ORDERED: METHADONE HCL 5 MG TABLET (FOR DETOX USE ONLY) ONE (08:28)
[2019-03-26] MEDS ORDERED: METHADONE HCL 10 MG TABLET (FOR DETOX USE ONLY) ONE (08:28)
[2019-03-26] MEDS ORDERED: METHADONE (DETOX) 10 MG, METHADONE (DETOX) 5 MG PO ONE (10:00)
[2019-03-26] MEDS: diazePAM 5 MG TABLET PO PRN ×2 (10:26→14:44)
[2019-03-26] MEDS: NICOTINE 14 MG/24 HOURS TOPICAL PATCH TD SCH (10:28)
[2019-03-26] MEDS: IBUPROFEN 400 MG TABLET (FP) PO PRN (10:29)
[2019-03-26] MEDS: PRENATAL VITAMINS W/ FOLIC ACID TABLET (FP) PO SCH (10:29)
[2019-03-26] MEDS: LIDOCAINE 5% TOPICAL PATCH TP SCH (11:35)
--- NOTE | 2019-03-26 11:53 | PN ---
S CIWA - CIWA Score Nausea/Vomitin-No Nausea/No Vomiting Muscle Tremors: 2 Anxiety: 2 Agitation: 2 Paroxysmal Sweats: No Perspiration Orientation: 0-Oriented Tacttile Disturbances: 0-None Auditory Disturbances: 0-None Visual Disturbances: 0-None Headache: 0-None Present CIWA-Ar Total Score: 6 BHS COWS - Scale Resting Pulse: 1= [place] 81-100 Sweatin= Chills/Flushing Restless Observation: 0= Sits Still Pupil Size: 0= Normal to Room Light Bone or Joint Aches: 1= Mild Discomfort Runny Nose/ Eye Tearin= Nasal Congestion GI Upset > 30mins: 0= None Tremor Observation of Outstretched Hands: 1= Tremor [place], Not Seen Yawning Observation: 0= None Anxiety or Irritability: 1=Feels Anxious/Irritable Goose Flesh Skin: 0=Smooth Skin COWS Score: 6 S Progress Note (SOAP) Subjective: doing well with valium and methadone detox regimen sleep and stay late on the bed limited conversation with staff denies depressive mood Objective: 03/26/19 11:55 Vital Signs Temperature 96.8 F L 03/26/19 09:13 Pulse Rate 85 03/26/19 09:13 Respiratory Rate 18 03/26/19 09:13 Blood Pressure 103/66 03/26/19 09:13 O2 Sat by Pulse Oximetry (%) Laboratory Last Values WBC 8.3 K/mm3 (4.0-10.0) 03/24/19 07:00 RBC 3.93 M/mm3 (3.60-5.2) 03/24/19 07:00 Hgb 10.7 GM/dL (10.7-15.3) 03/24/19 07:00 Hct 32.6 % (32.4-45.2) 03/24/19 07:00 MCV 83.0 fl (80-96) 03/24/19 07:00 MCH 27.1 pg (25.7-33.7) 03/24/19 07:00 MCHC 32.7 g/dl (32.0-36.0) 03/24/19 07:00 RDW 14.9 % (11.6-15.6) 03/24/19 07:00 Plt Count 354 K/MM3 (134-434) D 03/24/19 07:00 MPV 7.7 fl (7.5-11.1) 03/24/19 07:00 Sodium 138 mmol/L (136-145) 03/24/19 07:00 Potassium 3.8 mmol/L (3.5-5.1) 03/24/19 07:00 Chloride 104 mmol/L (98-107) 03/24/19 07:00 Carbon Dioxide 27 mmol/L (21-32) 03/24/19 07:00 Anion Gap 7 MMOL/L (8-16) L 03/24/19 07:00 BUN 14.4 mg/dL (7-18) 03/24/19 07:00 Creatinine 0.7 mg/dL (0.55-1.3) 03/24/19 07:00 Est GFR (CKD-EPI)AfAm 127.39 03/24/19 07:00 Est GFR (CKD-EPI)NonAf 109.91 03/24/19 07:00 Random Glucose 93 mg/dL (74-106) 03/24/19 07:00 Calcium 8.7 mg/dL (8.5-10.1) 03/24/19 07:00 Total Bilirubin 0.2 mg/dL (0.2-1) 03/24/19 07:00 AST 9 U/L (15-37) L 03/24/19 07:00 ALT 19 U/L (13-61) 03/24/19 07:00 Alkaline Phosphatase 71 U/L (45-117) 03/24/19 07:00 Total Protein 7.2 g/dl (6.4-8.2) 03/24/19 07:00 Albumin 2.7 g/dl (3.4-5.0) L 03/24/19 07:00 POC Urine HCG, Qual Negative 03/23/19 18:57 RPR Titer Nonreactive (NONREACTIVE) 03/24/19 07:00 lab noted Assessment: 03/26/19 11:55 benzo and opiate withdrawal sx Plan: continue benzo and opiate detox
[2019-03-26 13:09] VITALS: BP 95/66; PULSE 72; TEMP 97.4
--- NOTE | 2019-03-26 16:30 | DS ---
[facility] Detox Discharge Summary Admission Date: 03/23/19 Discharge Date: 03/26/19 - History Present History: Opioid Dependence, Sedative Dependence Additional Comments: Pt. is medically stable; no acute distress. Denies SI/HI. Advised to continue treatment and educated on the risks of discontinuing treatment; pt. adamant about leaving. Refused medication refills. Advised to follow-up with PCP. If worsening symptoms are present, advised to go to the ED. - Physical Exam Results Vital Signs: Vital Signs Temperature 97.4 F L 03/26/19 13:08 Pulse Rate 72 03/26/19 13:08 Respiratory Rate 18 03/26/19 13:08 Blood Pressure 95/66 03/26/19 13:08 O2 Sat by Pulse Oximetry (%) Pertinent Admission Physical Exam Findings: Laboratory Last Values WBC 8.3 K/mm3 (4.0-10.0) 03/24/19 07:00 RBC 3.93 M/mm3 (3.60-5.2) 03/24/19 07:00 Hgb 10.7 GM/dL (10.7-15.3) 03/24/19 07:00 Hct 32.6 % (32.4-45.2) 03/24/19 07:00 MCV 83.0 fl (80-96) 03/24/19 07:00 MCH 27.1 pg (25.7-33.7) 03/24/19 07:00 MCHC 32.7 g/dl (32.0-36.0) 03/24/19 07:00 RDW 14.9 % (11.6-15.6) 03/24/19 07:00 Plt Count 354 K/MM3 (134-434) D 03/24/19 07:00 MPV 7.7 fl (7.5-11.1) 03/24/19 07:00 Sodium 138 mmol/L (136-145) 03/24/19 07:00 Potassium 3.8 mmol/L (3.5-5.1) 03/24/19 07:00 Chloride 104 mmol/L (98-107) 03/24/19 07:00 Carbon Dioxide 27 mmol/L (21-32) 03/24/19 07:00 Anion Gap 7 MMOL/L (8-16) L 03/24/19 07:00 BUN 14.4 mg/dL (7-18) 03/24/19 07:00 Creatinine 0.7 mg/dL (0.55-1.3) 03/24/19 07:00 Est GFR (CKD-EPI)AfAm 127.39 03/24/19 07:00 Est GFR (CKD-EPI)NonAf 109.91 03/24/19 07:00 Random Glucose 93 mg/dL (74-106) 03/24/19 07:00 Calcium 8.7 mg/dL (8.5-10.1) 03/24/19 07:00 Total Bilirubin 0.2 mg/dL (0.2-1) 03/24/19 07:00 AST 9 U/L (15-37) L 03/24/19 07:00 ALT 19 U/L (13-61) 03/24/19 07:00 Alkaline Phosphatase 71 U/L (45-117) 03/24/19 07:00 Total Protein 7.2 g/dl (6.4-8.2) 03/24/19 07:00 Albumin 2.7 g/dl (3.4-5.0) L 03/24/19 07:00 POC Urine HCG, Qual Negative 03/23/19 18:57 RPR Titer Nonreactive (NONREACTIVE) 03/24/19 07:00 Labs noted - Medication Discharge Medications: Ambulatory Orders Quetiapine Fumarate [Seroquel] 100 mg PO HS #30 tablet 06/26/18 - Diagnosis (1) Sedative, hypnotic or anxiolytic dependence with withdrawal, uncomplicated Current Visit: Yes Status: Chronic (2) Opioid dependence with withdrawal Current Visit: Yes Status: Chronic - AMA Did Patient Leave Against Medical Advice: Yes
[2019-03-27] MEDS ORDERED: METHADONE HCL 10 MG TABLET (FOR DETOX USE ONLY) PO ONE (10:00)
[2019-03-28] MEDS ORDERED: METHADONE HCL 5 MG TABLET (FOR DETOX USE ONLY) PO ONE (06:00)
== END 2019-03-26 16:42 | disposition left against medical advice (07) | DRG 770 ==
LOC: YASAS 17:55 → Y3N 21:32
PROVIDERS: ADMIT Surgery; ATTEND Surgery
PROC: HZ2ZZZZ Detoxification Services for Substance Abuse Treatment (ICD-10-PCS; principal; 2019-03-23)
DX: F11.23 Opioid dependence with withdrawal (principal); F13.230 Sedative, hypnotic or anxiolytic dependence with withdrawal, uncomplicated; F14.20 Cocaine dependence, uncomplicated; F12.20 Cannabis dependence, uncomplicated; F17.210 Nicotine dependence, cigarettes, uncomplicated; F41.9 Anxiety disorder, unspecified; F32.9 Major depressive disorder, single episode, unspecified; M54.5 Low back pain; Z91.81 History of falling; Z86.19 Personal history of other infectious and parasitic diseases; Z91.5 Personal history of self-harm
CPT/HCPCS: 36415; 80053; 81025; 85027; 86480; 86593; 93005; 93010

== ENCOUNTER 2019-07-15 12:33 | Inpatient (IN) | payer OTHER ==
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
--- NOTE | 2019-07-15 16:07 | PN ---
Teaching Attending Note Name of Resident: Alyssa Hutson ATTENDING PHYSICIAN STATEMENT I saw and evaluated the patient. I reviewed the resident's note and discussed the case with the resident. I agree with the resident's findings and plan as documented. SUBJECTIVE: 38 yo with OUD here for heroin detox. Says she is ready for heroin detox occ Klonopin use OBJECTIVE: Vital Signs - 24 hr 07/15/19 13:37 Temperature 96.8 F L Pulse Rate 88 Respiratory 20 Rate Blood Pressure 111/77 alert and oriented ASSESSMENT AND PLAN: OUD- IV heroin- here for opioid detox with methadone
[2019-07-15] MEDS ORDERED: MAG HYDROX/AL HYDROX/SIMETH 30 ML UNIT-DOSE CUP PO PRN (16:25)
[2019-07-15] MEDS ORDERED: MELATONIN 5 MG TABLETS PO PRN (16:25)
[2019-07-15] MEDS ORDERED: MENTHOL/PHENOL 1 EACH UD MM PRN (16:25)
[2019-07-15] MEDS ORDERED: IBUPROFEN 400 MG TABLET (FP) PO PRN (16:25)
[2019-07-15] MEDS ORDERED: NICOTINE POLACRILEX 2 MG GUM BUC PRN (16:25)
[2019-07-15] MEDS ORDERED: MAGNESIUM CITRATE 300 ML BOTTLE PO PRN (16:25)
[2019-07-15] MEDS ORDERED: BISMUTH SUBSALICYLATE 524 MG/30 ML UD PO PRN (16:25)
[2019-07-15] MEDS ORDERED: ACETAMINOPHEN 325 MG TABLET (FP) PO PRN ×2 (16:25)
[2019-07-15] MEDS ORDERED: hydrOXYzine PAMOATE 25 MG CAPSULE (FP) PO PRN ×2 (16:25→16:30)
[2019-07-15] MEDS ORDERED: MAGNESIUM HYDROX 2400MG/30ML ORAL SUSPENSION 30 ML CUP PO PRN (16:25)
[2019-07-15] MEDS ORDERED: METHOCARBAMOL 500 MG TABLET PO PRN (16:25)
[2019-07-15] MEDS ORDERED: NALOXONE HCL 0.4 MG/ML VIAL IM PRN (16:29)
[2019-07-15] MEDS ORDERED: METHADONE HCL 10 MG TABLET (FOR DETOX USE ONLY) PO ONE (16:29)
[2019-07-15] MEDS ORDERED: cloNIDine HCL 0.1 MG TABLET PO PRN (16:29)
[2019-07-15] MEDS: clonazePAM 0.5 MG TABLET PO PRN ×2 (17:27→22:23)
[2019-07-15] MEDS: THIAMINE HCL 100 MG TABLET (FP) PO SCH (22:23)
[2019-07-16] MEDS ORDERED: METHADONE HCL 5 MG TABLET (FOR DETOX USE ONLY) ONE (09:12)
[2019-07-16] MEDS ORDERED: METHADONE HCL 10 MG TABLET (FOR DETOX USE ONLY) ONE (09:13)
[2019-07-16 09:39] LABS: HEMATOCRIT 31.9 % (32.4-45.2); HEMOGLOBIN 10.4 GM/dL (10.7-15.3); MCH 25.1 pg (25.7-33.7); MCHC 32.6 g/dl (32.0-36.0); MEAN CELL VOLUME 76.8 fl (80-96); MEAN PLT VOLUME 7.7 fl (7.5-11.1); PLATELET COUNT 282 K/MM3 (134-434); RBC 4.16 M/mm3 (3.60-5.2); RDW 16.3 % (11.6-15.6); WHITE BLOOD COUNT 5.5 K/mm3 (4.0-10.0)
[2019-07-16 09:42] LABS: ALBUMIN 2.9 g/dl (3.4-5.0); BILIRUBIN,TOTAL 0.2 mg/dL (0.2-1); BLOOD UREA NITROGEN 22.4 mg/dL (7-18); CALCIUM 8.3 mg/dL (8.5-10.1); CREATININE 0.8 mg/dL (0.55-1.3); POTASSIUM 3.8 mmol/L (3.5-5.1); TOT PROT 7.2 g/dl (6.4-8.2)
[2019-07-16] MEDS ORDERED: METHADONE (DETOX) 20 MG, METHADONE (DETOX) 5 MG PO ONE (10:00)
[2019-07-16] MEDS: PRENATAL VITAMINS W/ FOLIC ACID TABLET (FP) PO SCH (10:31)
[2019-07-16] MEDS: NICOTINE 14 MG/24 HOURS TOPICAL PATCH TD SCH (10:31)
--- NOTE | 2019-07-16 11:56 | PN ---
BHS COWS - Scale Resting Pulse: 1= [place] 81-100 Sweatin= Chills/Flushing Restless Observation: 1= Difficult to Sit Still Pupil Size: 0= Normal to Room Light Bone or Joint Aches: 2= Severe Diffuse Aches Runny Nose/ Eye Tearin= Runny Nose/Eyes GI Upset > 30mins: 1= Stomach Cramp Tremor Observation of Outstretched Hands: 2= Slight Tremor Visible Yawning Observation: 2= >3x During Session Anxiety or Irritability: 2=Irritable/Anxious Goose Flesh Skin: 3=Piloerection COWS Score: 17 BHS Progress Note (SOAP) Subjective: shakes sweats body aches irritable agitation interrupted sleep Objective: 07/16/19 11:58 Vital Signs Temperature 98.1 F 07/16/19 11:25 Pulse Rate 78 07/16/19 11:25 Respiratory Rate 18 07/16/19 11:25 Blood Pressure 97/56 L 07/16/19 11:25 O2 Sat by Pulse Oximetry (%) Laboratory Tests 07/15/19 07/16/19 07/16/19 14:44 08:00 08:00 WBC 5.5 RBC 4.16 Hgb 10.4 L Hct 31.9 L MCV 76.8 L MCH 25.1 L MCHC 32.6 RDW 16.3 H Plt Count 282 D MPV 7.7 Sodium 140 Potassium 3.8 Chloride 107 Carbon Dioxide 27 Anion Gap 6 L BUN 22.4 H Creatinine 0.8 Est GFR (CKD-EPI)AfAm 108.39 Est GFR (CKD-EPI)NonAf 93.52 Random Glucose 106 Calcium 8.3 L Total Bilirubin 0.2 AST 25 ALT 31 Alkaline Phosphatase 94 Total Protein 7.2 Albumin 2.9 L POC Urine HCG, Qual Negative labs noted mild low H:H noted pt is currently getting MVI during her detox aaox3 lying in bed no acute distress Assessment: 07/16/19 11:59 withdrawal sx Plan: continue detox increase fluids iron sulfate bid ordered
[2019-07-16] MEDS: clonazePAM 0.5 MG TABLET PO PRN (17:01)
[2019-07-16] MEDS: THIAMINE HCL 100 MG TABLET (FP) PO SCH (23:07)
--- NOTE | 2019-07-17 09:50 | PN ---
BHS COWS - Scale Resting Pulse: 0= [place] 80 or Below Sweatin= Chills/Flushing Restless Observation: 1= Difficult to Sit Still Pupil Size: 0= Normal to Room Light Bone or Joint Aches: 1= Mild Discomfort Runny Nose/ Eye Tearin= Nasal Congestion GI Upset > 30mins: 2= Nausea/Diarrhea Tremor Observation of Outstretched Hands: 1= Tremor [place], Not Seen Yawning Observation: 1= 1-2x During Session Anxiety or Irritability: 1=Feels Anxious/Irritable Goose Flesh Skin: 0=Smooth Skin COWS Score: 9 BHS Progress Note (SOAP) Subjective: Patient seen in bed with no complaints other than withdrawal symptoms. Objective: Vitals: BP:115/93 P:75/min R: 16/min T:98.1 Noted abnormalities in labs and being treated. Alert and oriented Cor: S1, S2 Lungs: Clear to a/p Abd: Benign, +BS hyperactive, no guarding or rebound tenderness. Ext: Normal pulses 07/17/19 09:46 Assessment: 07/17/19 09:48 1. Anemia, Microcytic 2. Abnormal labs 3. Opioid Dependence 4. Benzodiazepine Use Disorder 5. Cocaine Use Disorder Plan: 1. Continue Feso4 supplementation 2. Monitor labs, Increase PO Fluids encouraged. 3. Detox to continue and monitor for withdrawals. 4. Counseling to cotinue and proceed to rehab 4. Counseling to continue and proceed to rehab. Dr. Stanton
[2019-07-17] MEDS ORDERED: METHADONE HCL 10 MG TABLET (FOR DETOX USE ONLY) PO ONE (10:00)
[2019-07-17] MEDS: NICOTINE 14 MG/24 HOURS TOPICAL PATCH TD SCH (10:19)
[2019-07-17] MEDS: PRENATAL VITAMINS W/ FOLIC ACID TABLET (FP) PO SCH (10:19)
[2019-07-17] MEDS: THIAMINE HCL 100 MG TABLET (FP) PO SCH (22:22)
[2019-07-18 09:10] VITALS: BP 107/69; PULSE 59; TEMP 97.5
[2019-07-18] MEDS ORDERED: METHADONE HCL 5 MG TABLET (FOR DETOX USE ONLY) ONE (09:17)
[2019-07-18] MEDS ORDERED: METHADONE HCL 10 MG TABLET (FOR DETOX USE ONLY) ONE (09:18)
[2019-07-18] MEDS ORDERED: METHADONE (DETOX) 10 MG, METHADONE (DETOX) 5 MG PO ONE (10:00)
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
[2019-07-19] MEDS ORDERED: METHADONE HCL 10 MG TABLET (FOR DETOX USE ONLY) PO ONE (10:00)
[2019-07-20] MEDS ORDERED: METHADONE HCL 5 MG TABLET (FOR DETOX USE ONLY) PO ONE (06:00)
== END 2019-07-18 10:27 | disposition left against medical advice (07) | DRG 770 ==
LOC: YASAS 12:33 → Y6N 16:46
PROVIDERS: ADMIT Allergy & Immunology; ATTEND Allergy & Immunology
PROC: HZ2ZZZZ Detoxification Services for Substance Abuse Treatment (ICD-10-PCS; principal; 2019-07-15)
DX: F11.23 Opioid dependence with withdrawal (principal); F13.20 Sedative, hypnotic or anxiolytic dependence, uncomplicated; F14.20 Cocaine dependence, uncomplicated; F12.10 Cannabis abuse, uncomplicated; F17.210 Nicotine dependence, cigarettes, uncomplicated; F32.9 Major depressive disorder, single episode, unspecified; D50.9 Iron deficiency anemia, unspecified; J45.909 Unspecified asthma, uncomplicated; Z86.69 Personal history of other diseases of the nervous system and sense organs; Z91.5 Personal history of self-harm
CPT/HCPCS: 36415; 80053; 81025; 85027; 86593; J0735

== ENCOUNTER 2020-02-23 09:51 | Inpatient (IN) | payer OTHER ==
--- NOTE | 2020-02-23 10:17 | BHS.RME ---
Substance Use & Tx History - Substance Use History Heroin Substance amount: 2 bundles Frequency of use: Daily Substance route: Injection (ex: intravenous or skin popping) Date of Last Use: 02/23/20 Cocaine- Powder Substance amount: $20 Frequency of use: Daily Substance route: Injection (ex: intravenous or skin popping) Date of Last Use: 02/23/20 Xanax Substance amount: 2 mg 4-5 tabs Frequency of use: More than 3 times per week Substance route: Inhalation (ex: sniffing or snorting) Date of Last Use: 02/23/20 Nicotine Substance amount: 1/2 pack Frequency of use: Daily Substance route: Smoking Date of Last Use: 02/23/20 Physical/Psych/Mental Status - Behavior General Behavior: Increased activity (restlessness, agitation) Eye Contact: Normal - Cooperativeness Cooperativeness: Cooperative - Thinking Thought Processes: Tight, Logical, Goal Directed - Physical Health Problems Is patient presently having any pain?: No Does patient presently have any injuries (include location): No Does patient currently have a fever: No Is patient : No COWS - Scale Resting Pulse: 0= [place] 80 or Below Sweatin= Chills/Flushing Restless Observation: 1= Difficult to Sit Still Pupil Size: 1= Pupils >than Normal Bone or Joint Aches: 4=Acute Joint/Muscle Pain Runny Nose/ Eye Tearin= Nasal Congestion GI Upset > 30mins: 2= Nausea/Diarrhea Tremor Observation: 1= Tremor [place], Not Seen Yawning Observation: 1= 1-2x During Session Anxiety or Irritability: 1=Feels Anxious/Irritable Goose Flesh Skin: 0=Smooth Skin COWS Score: 13 CIWA Nausea/Vomitin-Mild Nausea/No Vomiting Muscle Tremors: 1-None Visible, but [place] Anxiety: 3 Agitation: 3 Paroxysmal Sweats: 2 Orientation: 0-Oriented Tacttile Disturbances: 0-None Auditory Disturbances: 0-None Visual Disturbances: 0-None Headache: 1-Very Mild CIWA-Ar Total Score: 11
--- NOTE | 2020-02-23 10:34 | HP ---
COWS - Scale Resting Pulse: 0= [place] 80 or Below Sweatin= Chills/Flushing Restless Observation: 1= Difficult to Sit Still Pupil Size: 1= Pupils >than Normal Bone or Joint Aches: 4=Acute Joint/Muscle Pain Runny Nose/ Eye Tearin= Nasal Congestion GI Upset > 30mins: 2= Nausea/Diarrhea Tremor Observation: 1= Tremor [place], Not Seen Yawning Observation: 1= 1-2x During Session Anxiety or Irritability: 1=Feels Anxious/Irritable Goose Flesh Skin: 0=Smooth Skin COWS Score: 13 CIWA Score Nausea/Vomitin-Mild Nausea/No Vomiting Muscle Tremors: 1-None Visible, but [place] Anxiety: 3 Agitation: 3 Paroxysmal Sweats: 2 Orientation: 0-Oriented Tacttile Disturbances: 0-None Auditory Disturbances: 0-None Visual Disturbances: 0-None Headache: 1-Very Mild CIWA-Ar Total Score: 11 - Admission Criteria OASAS Guidelines: Admission for Medically Managed Detox: Requires at least one of the followin. CIWA greater than 12 2. Seizures within the past 24 hours 3. Delirium tremens within the past 24 hours 4. Hallucinations within the past 24 hours 5. Acute intervention needed for co occurring medical disorder 6. Acute intervention needed for co occurring psychiatric disorder 7. Severe withdrawal that cannot be handled at a lower level of care (continued vomiting, continued diarrhea, abnormal vital signs) requiring intravenous medication and/or fluids 8. Admitting History and Physical - Admission Chief Complaint: "I need help. I need to stop. Ican't do this anymore." History of Present Illness: 39 year old female with history of opioid dependence , cocaine use disorder, sedative dependence, nicotine dependence. Last time she was here she stayed only e days because she states she wasn't ready. 07/25/10-07/18/19. Heroin: 2 bundles IV, started at age 22 and last used this morning. Overdosed 4-5 times and last used 02/22/20. Has no narcan kit. Cocaine: $20 IV, started at age 22 and last used today. Xanax: 2 mg 4-5 tabs daily IN, started at age 29 and last used this morning about 2 hours ago. She's had seizures upon withdrawal just 2 days ago. Nicotine: 1/2 pack daily, started smoking at 16 PMH: HCV s/p treatment Peg Interferon and Ribavirin years ago. Psurg: Left hand cut ( residual numbness index and middle finger), Abscess removal left hand. Psych: Bipolar (no meds) as a teenager She is homess and starys with a friend No legal issues. CIWA=11 COWS=13 She will submit for contract to complete detox this time She meets criteria for detox due to poor recovery environment and psych co- morbidity. - Past Medical History ...LMP: 03/14/19 - Smoking History Smoking history: Current every day smoker Have you smoked in the past 12 months: Yes Aproximately how many cigarettes per day: 10 - Alcohol/Substance Use Hx Alcohol Use: No Admission ROS BHS - HPI Allergies/Adverse Reactions: Allergies Allergy/AdvReac Type Severity Reaction Status Date / Time No Known Allergies Allergy Verified 07/15/19 13:39 Exam Limitations: No Limitations - Ebola screening Have you traveled outside of the country in the last 21 days: No Have you had contact with anyone from an Ebola affected area: No Have you been sick,other than usual withdrawal symptoms: No Do you have a fever: No - Review of Systems Constitutional: Chills, Unintentional Wgt. Loss EENT: reports: No Symptoms Reported Respiratory: reports: No Symptoms reported Cardiac: reports: No Symptoms Reported GI: reports: No Symptoms Reported : reports: No Symptoms Reported Musculoskeletal: reports: No Symptoms Reported Integumentary: reports: No Symptoms Reported Neuro: reports: No Symptoms reported Endocrine: reports: No Symptoms Reported Hematology: reports: No Symptoms Reported Psychiatric: reports: Judgement Intact, Mood/Affect Appropiate, Orientated x3, Agitated, Anxious Other Systems: Reviewed and Negative Patient History - Patient Medical History Hx Anemia: Yes (Not on medication) Hx Asthma: Yes (Not on medication) Hx Chronic Obstructive Pulmonary Disease (COPD): No Hx Cancer: No Hx Cardiac Disorders: No Hx Congestive Heart Failure: No Hx Hypertension: No Hx Hypercholesterolemia: No Hx Pacemaker: No HX Cerebrovascular Accident: No Hx Seizures: Yes (drug related seizures last 2 yrs ago.) Hx Dementia: No Hx Diabetes: No Hx Gastrointestinal Disorders: No Hx Liver Disease: Yes (Hep C, Treated 2005, but relapsed after.) Hx Genitourinary Disorders: No Hx Sexually Transmitted Disorders: No Hx Renal Disease (ESRD): No Hx Thyroid Disease: No Hx Human Immunodeficiency Virus (HIV): No Hx Hepatitis C: Yes (2006, treated with Interferon and ribavirin, relapsed after.) Hx Depression: Yes (Not on medication) Hx Suicide Attempt: Yes (tried to overdose at age 17 yrs old. denies suicidal ideation at this time) Hx Bipolar Disorder: No Hx Schizophrenia: No - Patient Surgical History Past Surgical History: Yes Hx Neurologic Surgery: No Hx Cataract Extraction: No Hx Cardiac Surgery: No Hx Lung Surgery: No Hx Breast Surgery: No Hx Breast Biopsy: No Hx Abdominal Surgery: No Hx Appendectomy: No Hx Cholecystectomy: No Hx Genitourinary Surgery: No Hx Section: No Hx Orthopedic Surgery: Yes (lt. hand surgery tendon repair (age 17), I&D of abcesses (age 27).) Hx Hysterectomy: No Anesthesia Reaction: No - PPD History Previous Implant?: Yes Documented Results: Negative w/proof Implanted On Prior [facility] Admission?: Yes Date: 12/02/17 Results: 0 mm PPD to be Administered?: Yes - Reproductive History Last Menstrual Period: 03/14/19 - Smoking Cessation Smoking history: Current every day smoker Have you smoked in the past 12 months: Yes Aproximately how many cigarettes per day: 10 Cigars Per Day: 0 Hx Chewing Tobacco Use: No Initiated information on smoking cessation: Yes 'Breaking Loose' booklet given: 02/23/20 - Substances abused Heroin Substance route: Injection Frequency: Daily Amount used: 2 bundles Age of first use: 22 Date of last use: 02/23/20 Cocaine Substance route: Injection Frequency: Daily Amount used: $20 Age of first use: 22 Date of last use: 02/23/20 Alprazolam (Xanax) Substance route: Inhalation Frequency: Daily Amount used: 2 mg 4-5 tabs Age of first use: 29 Date of last use: 02/23/20 Admission Physical Exam BHS - Physical General Appearance: Yes: Thin, Sweating, Anxious HEENTM: Yes: EOMI, Hearing grossly Normal, Normal ENT Inspection, Normocephalic, Normal Voice, AHMET, Pharynx Normal, Tm's normal Respiratory: Yes: Chest Non-Tender, Lungs Clear, Normal Breath Sounds, No Respiratory Distress, No Accessory Muscle Use Neck: Yes: No masses,lesions,Nodules, Supple, Trachea in good position Breast: Yes: Breast Exam Deferred Cardiology: Yes: Regular Rhythm, Regular Rate, S1, S2 Abdominal: Yes: Normal Bowel Sounds, Non Tender, Flat, Soft Genitourinary: Yes: Within Normal Limits Back: Yes: Normal Inspection Musculoskeletal: Yes: full range of Motion, Gait Steady, Pelvis Stable Extremities: Yes: Normal Capillary Refill, Normal Inspection, Normal Range of Motion, Non-Tender Neurological: Yes: shredded filler machine wrapper layer II-XII NML intact, Fully Oriented, Alert, Motor Strength 5/5, Normal Mood/Affect, Normal Response Integumentary: Yes: Normal Color, Dry, Warm Lymphatic: Yes: Within Normal Limits Cleared for Admission [facility] - Detox or Rehab [facility] Level of Care: Medically Managed Detox Regimen/Protocol: Methadone/Valium Claeared for Rehab Admission: No Screened but not Admitted - Documentation of Visit Screened but not Admitted: No Breathalyzer - Breathalyzer Breathalyzer: 0 Urine Drug Screen - Test Device Lot number: [id number] Expiration date: 03/25/21 - Control Is test valid?: Yes - Results Drug screen NEGATIVE: No Urine drug screen results: THC-Marijuana, SANDEEP-Cocaine, FEN-Fentanyl, MOP- Opiates, MTD-Methadone Inpatient Rehab Admission - Rehab Decision to Admit Inpatient rehab admission?: No
[2020-02-23] MEDS ORDERED: MAGNESIUM HYDROX 2400MG/30ML ORAL SUSPENSION 30 ML CUP PO PRN (10:40)
[2020-02-23] MEDS ORDERED: METHOCARBAMOL 500 MG TABLET PO PRN (10:40)
[2020-02-23] MEDS ORDERED: diazePAM 5 MG TABLET PO PRN (10:40)
[2020-02-23] MEDS ORDERED: MAGNESIUM CITRATE 300 ML BOTTLE PO PRN (10:40)
[2020-02-23] MEDS ORDERED: ONDANSETRON *ODT* 4 MG TABLET SL ONE (10:40)
[2020-02-23] MEDS ORDERED: NICOTINE POLACRILEX 2 MG GUM BUC PRN (10:40)
[2020-02-23] MEDS ORDERED: IBUPROFEN 400 MG TABLET (FP) PO PRN (10:40)
[2020-02-23] MEDS ORDERED: MAG HYDROX/AL HYDROX/SIMETH 30 ML UNIT-DOSE CUP PO PRN (10:40)
[2020-02-23] MEDS ORDERED: cloNIDine HCL 0.1 MG TABLET PO PRN (10:40)
[2020-02-23] MEDS ORDERED: BISMUTH SUBSALICYLATE 262 MG/15 ML BTL PO PRN (10:40)
[2020-02-23] MEDS ORDERED: ACETAMINOPHEN 325 MG TABLET (FP) PO PRN ×2 (10:40)
[2020-02-23] MEDS ORDERED: MENTHOL/PHENOL 1 EACH UD MM PRN (10:40)
[2020-02-23] MEDS ORDERED: METHADONE HCL 10 MG TABLET (FOR DETOX USE ONLY) PO ONE (10:40)
[2020-02-23 11:08] VITALS: BMI 20.2
[2020-02-23] MEDS: NICOTINE 7 MG/24 HOURS TOPICAL PATCH TD SCH (11:32)
[2020-02-23] MEDS: PRENATAL VITAMINS W/ FOLIC ACID TABLET (FP) PO SCH (11:45)
[2020-02-23] MEDS: BACITRACIN 0.9 GM PACKET TP SCH ×2 (12:19→21:12)
[2020-02-23] MEDS: diazePAM 5 MG TABLET PO SCH ×2 (14:04→21:12)
[2020-02-23] MEDS: hydrOXYzine PAMOATE 25 MG CAPSULE (FP) PO SCH ×3 (14:48→22:56)
[2020-02-23 16:42] LABS: HEMATOCRIT 33.9 % (32.4-45.2); HEMOGLOBIN 10.9 GM/dL (10.7-15.3); MCH 26.1 pg (25.7-33.7); MCHC 32.2 g/dl (32.0-36.0); MEAN PLT VOLUME 7.6 fl (7.5-11.1); PLATELET COUNT 555 K/MM3 (134-434); RBC 4.18 M/mm3 (3.60-5.2); RDW 17.1 % (11.6-15.6); WHITE BLOOD COUNT 7.2 K/mm3 (4.0-10.0)
[2020-02-23 16:53] LABS: ALBUMIN 3.2 g/dl (3.4-5.0); BILIRUBIN,TOTAL 0.7 mg/dL (0.2-1); CALCIUM 9.2 mg/dL (8.5-10.1); TOT PROT 9.3 g/dl (6.4-8.2)
[2020-02-23 16:54] LABS: BLOOD UREA NITROGEN 19.5 mg/dL (7-18); CREATININE 0.9 mg/dL (0.55-1.3)
--- NOTE | 2020-02-23 17:26 | CONSULT ---
[facility] Psychiatric Consult - Data Date of interview: 02/23/20 Admission source: [facility] Identifying data: Readmission to [facility] for this 39 y/o [place]-born female, self-referred for detoxification treatment. BERT issues : heroin, cocaine, alcohol, benzodiazepine (xanax), crystal metamphetamine, nicotine. Patient is single, no dependents, domiciled, unemployed and currently supported by male friends (self-report). Substance Abuse History: Discussed with the patient. BERT profile as follows : Smoking history: Current every day smoker. Have you smoked in the past 12 months: Yes. Aproximately how many cigarettes per day: 10. Cigars Per Day: 0. Hx Chewing Tobacco Use: No. Initiated information on smoking cessation: Yes. 'Breaking Loose' booklet given: 02/23/20. - Substances abused. Heroin. Substance route: Injection. Frequency: Daily. Amount used: 2 bundles. Age of first use: 22. Date of last use: 02/23/20. Cocaine. Substance route: Injection. Frequency: Daily. Amount used: $20. Age of first use: 22. Date of last use: 02/23/20. Alprazolam (Xanax). Substance route: Inhalation. Frequency: Daily. Amount used: 2 mg 4-5 tabs. Age of first use: 29. Date of last use: 02/23/20 Medical History: Medical pofile is remarkable for dislocated discs (lumbar spine), chronic lumbar pain, anemia, bronchial asthma, antecedent of withdrawal- related seizures, hepatitis C (treated) and a distant history (age 17) of orthosurgery (tendon repair in left hand). Psychiatric History: Patient endorses a history of two psychiatric hospitalizations ([facility]). Onset of emotional disturbances : age 17. Diagnosed, at the time, with Bipolar Disorder. Ms Vázquez has reportedly dropped out of OPD care (no longer with [facility] providers). Used to be on suboxone. Patient relies on medical providers for seroquel scripts to address chronic insomnia. Remote history of suicide attempt (overdose with medications at age 17). Physical/Sexual Abuse/Trauma History: Not discussed in this session. Patient declines. Additional Comment: Urine drug screen results: THC-Marijuana, SANDEEP-Cocaine, FEN-F entanyl, MOP-Opiates, MTD-Methadone. Noted. Mental Status Exam - Mental Status Exam Alert and Oriented to: Time, Place, Person Cognitive Function: Good Patient Appearance: Well Groomed Mood: Nervous, Withdrawn Affect: Mood Congruent, Constricted Patient Behavior: Fatigued, Appropriate, Cooperative Speech Pattern: Clear, Appropriate Voice Loudness: Normal Thought Process: Intact, Goal Oriented Thought Disorder: Not Present Hallucinations: Denies Suicidal Ideation: Denies Homicidal Ideation: Denies Insight/Judgement: Poor Sleep: Poorly, Difficulty falling asleep Appetite: Good Gait/Station: Normal Psychiatric Findings - Problem List ([place] 1, 2,3) (1) Alcohol dependence with uncomplicated withdrawal Current Visit: Yes Status: Acute (2) Opioid dependence with withdrawal Current Visit: Yes Status: Acute (3) Sedative, hypnotic or anxiolytic dependence with withdrawal, uncomplicated Current Visit: Yes Status: Acute (4) Cocaine dependence Current Visit: Yes Status: Chronic Qualifiers: Substance use status: uncomplicated Qualified Code(s): F14.20 - Cocaine dependence, uncomplicated (5) Nicotine dependence Current Visit: Yes Status: Chronic Qualifiers: Nicotine product type: cigarettes Substance use status: uncomplicated Qualified Code(s): F17.210 - Nicotine dependence, cigarettes, uncomplicated (6) Substance induced mood disorder Current Visit: Yes Status: Chronic (7) Insomnia Current Visit: Yes Status: Chronic - Initial Treatment Plan Initial Treatment Plan: Psychoeducation. Sleep hygiene. Detoxification in progress. Seroquel 50 mg po hs. Resumed at this patient's request. Side effects/benefits discussed with patient. Ms Vázquez is in agreement with this plan of care. Cecil consent (verbal) to MD. Alejandro.
[2020-02-23] MEDS ORDERED: THIAMINE HCL 100 MG TABLET (FP) PO SCH (22:00)
[2020-02-23] MEDS ORDERED: QUEtiapine FUMARATE 50 MG TABLET PO SCH (22:00)
[2020-02-23] MEDS ORDERED: MELATONIN 5 MG TABLETS PO SCH (22:00)
[2020-02-24] MEDS: diazePAM 5 MG TABLET PO SCH ×2 (05:32→14:33)
[2020-02-24] MEDS: hydrOXYzine PAMOATE 25 MG CAPSULE (FP) PO SCH ×3 (05:32→14:34)
[2020-02-24] MEDS ORDERED: METHADONE HCL 5 MG TABLET (FOR DETOX USE ONLY) ONE (08:42)
[2020-02-24] MEDS ORDERED: METHADONE HCL 10 MG TABLET (FOR DETOX USE ONLY) ONE (08:42)
[2020-02-24 08:52] VITALS: TEMP 97.8
--- NOTE | 2020-02-24 09:53 | PN ---
[facility] CIWA - CIWA Score Nausea/Vomitin-Mild Nausea/No Vomiting Muscle Tremors: 3 Anxiety: 3 Agitation: 1-Slight > Activity Paroxysmal Sweats: 2 Orientation: 0-Oriented Tacttile Disturbances: 0-None Auditory Disturbances: 0-None Visual Disturbances: 0-None Headache: 0-None Present CIWA-Ar Total Score: 10 S COWS - Scale Resting Pulse: 1= [place] 81-100 Sweatin= Chills/Flushing Restless Observation: 0= Sits Still Pupil Size: 1= Pupils >than Normal Bone or Joint Aches: 1= Mild Discomfort Runny Nose/ Eye Tearin= None GI Upset > 30mins: 2= Nausea/Diarrhea Tremor Observation of Outstretched Hands: 2= Slight Tremor Visible Yawning Observation: 0= None Anxiety or Irritability: 2=Irritable/Anxious Goose Flesh Skin: 0=Smooth Skin COWS Score: 10 [facility] Progress Note (SOAP) Subjective: 39 years old female admitted on 02/23/20 for benzo and opiate withdrawal sx management treating with valium and methadone detox regiments feeling tired resting in bed prefers to stay in bed limited conversation with staff Objective: 02/24/20 09:52 Vital Signs - 24 hr 02/23/20 02/23/20 02/23/20 11:06 11:35 12:35 Temperature 97.2 F L 97.3 F L 97.5 F L Pulse Rate 94 H 96 H 115 H Respiratory 16 18 18 Rate Blood Pressure 97/65 109/69 103/74 O2 Sat by Pulse 98 Oximetry (%) 02/23/20 02/23/20 02/24/20 16:42 20:53 06:15 Temperature 97.5 F L 97.7 F 97.6 F Pulse Rate 85 83 72 Respiratory 16 16 18 Rate Blood Pressure 108/73 108/68 102/64 O2 Sat by Pulse 96 99 Oximetry (%) 02/24/20 08:37 Temperature 97.8 F Pulse Rate 90 Respiratory 16 Rate Blood Pressure 98/64 O2 Sat by Pulse Oximetry (%) Laboratory Tests 02/23/20 02/23/20 02/23/20 10:50 10:50 10:50 WBC 7.2 RBC 4.18 Hgb 10.9 Hct 33.9 MCV 81.0 MCH 26.1 MCHC 32.2 RDW 17.1 H Plt Count 555 H D MPV 7.6 Sodium 139 Potassium 4.0 Chloride 102 Carbon Dioxide 29 Anion Gap 8 BUN 19.5 H Creatinine 0.9 Est GFR (CKD-EPI)AfAm 93.35 Est GFR (CKD-EPI)NonAf 80.54 Random Glucose 91 Calcium 9.2 Total Bilirubin 0.7 AST 22 ALT 32 Alkaline Phosphatase 96 Total Protein 9.3 H Albumin 3.2 L POC Urine HCG, Qual Syphilis Serology Non-reactive HIV Ag/Ab Combo Qual 02/23/20 02/23/20 10:54 11:50 WBC RBC Hgb Hct MCV MCH MCHC RDW Plt Count MPV Sodium Potassium Chloride Carbon Dioxide Anion Gap BUN Creatinine Est GFR (CKD-EPI)AfAm Est GFR (CKD-EPI)NonAf Random Glucose Calcium Total Bilirubin AST ALT Alkaline Phosphatase Total Protein Albumin POC Urine HCG, Qual Negative Syphilis Serology HIV Ag/Ab Combo Qual Negative lab noted Assessment: 02/24/20 09:53 benzo and opiate withdrawal Plan: valium and methadone regiments
[2020-02-24] MEDS ORDERED: METHADONE (DETOX) 20 MG, METHADONE (DETOX) 5 MG PO ONE (10:00)
[2020-02-24] MEDS: BACITRACIN 0.9 GM PACKET TP SCH (10:27)
[2020-02-24] MEDS: PRENATAL VITAMINS W/ FOLIC ACID TABLET (FP) PO SCH (10:28)
[2020-02-24] MEDS: NICOTINE 7 MG/24 HOURS TOPICAL PATCH TD SCH (10:30)
[2020-02-24 13:38] VITALS: BP 100/68; PULSE 92
[2020-02-24] MEDS ORDERED: hydrOXYzine PAMOATE 25 MG CAPSULE (FP) PO PRN (15:13)
--- NOTE | 2020-02-24 16:10 | DS ---
[facility] Detox Discharge Summary Admission Date: 02/23/20 Discharge Date: 02/24/20 - History Present History: Opioid Dependence, Sedative Dependence Additional Comments: 39 years old female admitted on 02/23/20 for benzo and opiate withdrawal sx management treated with valium and methadone detox regiment ms triana insists to leave the detox unit today due to "personal reason" ms triana refuses to discuss "reason" further alert oriented x 3 speech clearly appears sad denies suicidal homocidal no self destructive behavior treatment team met with the patient who had phone argument not long ago encourage to take time to verbalize feelings and concerns ms triana refuses to do so and insists to leave the detox unit Pertinent Past History: time for discharge 41 minutes team met with the patient against medical advice is appropriated due to withdrawal sx and comorbidity of asthma with benzo addiction - Physical Exam Results Vital Signs: Vital Signs Temperature 97.8 F 02/24/20 12:37 Pulse Rate 92 H 02/24/20 12:37 Respiratory Rate 18 02/24/20 12:37 Blood Pressure 100/68 02/24/20 12:37 O2 Sat by Pulse Oximetry (%) 96 02/24/20 12:37 Pertinent Admission Physical Exam Findings: benzo and opiate withdrawal Laboratory Tests 02/23/20 02/23/20 02/23/20 10:50 10:50 10:50 WBC 7.2 RBC 4.18 Hgb 10.9 Hct 33.9 MCV 81.0 MCH 26.1 MCHC 32.2 RDW 17.1 H Plt Count 555 H D MPV 7.6 Sodium 139 Potassium 4.0 Chloride 102 Carbon Dioxide 29 Anion Gap 8 BUN 19.5 H Creatinine 0.9 Est GFR (CKD-EPI)AfAm 93.35 Est GFR (CKD-EPI)NonAf 80.54 Random Glucose 91 Calcium 9.2 Total Bilirubin 0.7 AST 22 ALT 32 Alkaline Phosphatase 96 Total Protein 9.3 H Albumin 3.2 L POC Urine HCG, Qual Syphilis Serology Non-reactive COVID-19 (CHARLI) HIV Ag/Ab Combo Qual 02/23/20 02/23/20 02/23/20 10:54 11:50 12:15 WBC RBC Hgb Hct MCV MCH MCHC RDW Plt Count MPV Sodium Potassium Chloride Carbon Dioxide Anion Gap BUN Creatinine Est GFR (CKD-EPI)AfAm Est GFR (CKD-EPI)NonAf Random Glucose Calcium Total Bilirubin AST ALT Alkaline Phosphatase Total Protein Albumin POC Urine HCG, Qual Negative Syphilis Serology COVID-19 (CHARLI) Not detected HIV Ag/Ab Combo Qual Negative - Treatment Hospital Course: Detox Protocol Followed, Responded well Patient has Accepted a Rehab Referral to: medication assisted treatment program - Medication Discharge Medications: Ambulatory Orders Quetiapine Fumarate [Seroquel -] 100 mg PO HS #30 tablet 06/26/18 - Diagnosis (1) Nicotine dependence Current Visit: Yes Status: Acute Qualifiers: Nicotine product type: cigarettes Substance use status: in withdrawal Qualified Code(s): F17.213 - Nicotine dependence, cigarettes, with withdrawal (2) Substance induced mood disorder Current Visit: Yes Status: Chronic (3) Hepatitis C Current Visit: Yes Status: Chronic Qualifiers: Viral hepatitis chronicity: chronic Hepatic coma status: without hepatic coma Qualified Code(s): B18.2 - Chronic viral hepatitis C (4) Substance induced mood disorder Current Visit: Yes Status: Suspected (5) Asthma Current Visit: Yes Status: Chronic Qualifiers: Asthma severity: mild Asthma persistence: intermittent Asthma complication type: with status asthmaticus Qualified Code(s): J45.22 - Mild intermittent asthma with status asthmaticus - AMA Did Patient Leave Against Medical Advice: Yes CIWA Score - CIWA Score Nausea/Vomitin-Mild Nausea/No Vomiting Muscle Tremors: 3 Anxiety: 3 Agitation: 1-Slight > Activity Paroxysmal Sweats: 2 Orientation: 0-Oriented Tacttile Disturbances: 0-None Auditory Disturbances: 0-None Visual Disturbances: 0-None Headache: 0-None Present CIWA-Ar Total Score: 10 COWS (PN) - Opiate Withdrawal Resting Pulse: 1= [place] 81-100 Sweatin= Chills/Flushing Restless Observation: 0= Sits Still Pupil Size: 1= Pupils >than Normal Bone or Joint Aches: 1= Mild Discomfort Runny Nose/ Eye Tearin= None GI Upset > 30mins: 2= Nausea/Diarrhea Tremor Observation of Outstretched Hands: 2= Slight Tremor Visible Yawning Observation: 0= None Anxiety or Irritability: 2=Irritable/Anxious Goose Flesh Skin: 0=Smooth Skin COWS Score: 10
[2020-02-25] MEDS ORDERED: diazePAM 5 MG TABLET PO SCH (06:00)
[2020-02-25] MEDS ORDERED: METHADONE HCL 10 MG TABLET (FOR DETOX USE ONLY) PO ONE (10:00)
[2020-02-26] MEDS ORDERED: diazePAM 5 MG TABLET PO ONE (06:00)
[2020-02-26] MEDS ORDERED: METHADONE (DETOX) 10 MG, METHADONE (DETOX) 5 MG PO ONE (10:00)
[2020-02-27] MEDS ORDERED: METHADONE HCL 10 MG TABLET (FOR DETOX USE ONLY) PO ONE (10:00)
[2020-02-28] MEDS ORDERED: METHADONE HCL 5 MG TABLET (FOR DETOX USE ONLY) PO ONE (06:00)
== END 2020-02-24 16:13 | disposition left against medical advice (07) | DRG 770 ==
LOC: YASAS 09:51 → Y3N 10:58
PROVIDERS: ADMIT Allergy & Immunology; ATTEND Allergy & Immunology
PROC: HZ2ZZZZ Detoxification Services for Substance Abuse Treatment (ICD-10-PCS; principal; 2020-02-23)
DX: F11.23 Opioid dependence with withdrawal (principal); F14.20 Cocaine dependence, uncomplicated; F13.230 Sedative, hypnotic or anxiolytic dependence with withdrawal, uncomplicated; F17.210 Nicotine dependence, cigarettes, uncomplicated; F19.24 Other psychoactive substance dependence with psychoactive substance-induced mood disorder; D64.9 Anemia, unspecified; J45.909 Unspecified asthma, uncomplicated; G47.00 Insomnia, unspecified; B18.2 Chronic viral hepatitis C; M54.5 Low back pain; G89.29 Other chronic pain; Z86.59 Personal history of other mental and behavioral disorders; Z91.5 Personal history of self-harm; Z56.0 Unemployment, unspecified
CPT/HCPCS: 36415; 80053; 81025; 85027; 86780; 87389; U0003

== ENCOUNTER 2020-11-09 11:48 | Inpatient (IN) | payer OTHER ==
[2020-11-09 12:58] VITALS: BMI 21.6
[2020-11-09] MEDS ORDERED: BISMUTH SUBSALICYLATE 262 MG/15 ML BTL PO PRN (13:41)
[2020-11-09] MEDS ORDERED: cloNIDine HCL 0.1 MG TABLET PO PRN (13:41)
[2020-11-09] MEDS ORDERED: MAG HYDROX/AL HYDROX/SIMETH 30 ML UNIT-DOSE CUP PO PRN (13:41)
[2020-11-09] MEDS ORDERED: NICOTINE POLACRILEX 2 MG GUM BUC PRN (13:41)
[2020-11-09] MEDS ORDERED: MENTHOL/PHENOL 1 EACH UD MM PRN (13:41)
[2020-11-09] MEDS ORDERED: chlordiazePOXIDE HCL 25 MG CAPSULE PO PRN (13:41)
[2020-11-09] MEDS ORDERED: MAGNESIUM HYDROX 2400MG/30ML ORAL SUSPENSION 30 ML CUP PO PRN (13:41)
[2020-11-09] MEDS ORDERED: ACETAMINOPHEN 325 MG TABLET (FP) PO PRN ×2 (13:41)
[2020-11-09] MEDS ORDERED: MAGNESIUM CITRATE 300 ML BOTTLE PO PRN (13:41)
[2020-11-09] MEDS ORDERED: ONDANSETRON *ODT* 4 MG TABLET SL PRN (13:41)
[2020-11-09] MEDS ORDERED: IBUPROFEN 400 MG TABLET (FP) PO PRN (13:41)
[2020-11-09] MEDS ORDERED: METHADONE HCL 10 MG TABLET (FOR DETOX USE ONLY) PO ONE (13:41)
[2020-11-09] MEDS: hydrOXYzine PAMOATE 25 MG CAPSULE (FP) PO SCH ×3 (14:15→22:17)
[2020-11-09 14:31] LABS: CHLORIDE 107 mmol/L (98-107); HEMATOCRIT 34.7 % (32.4-45.2); HEMOGLOBIN 11.2 GM/dL (10.7-15.3); MCH 26.6 pg (25.7-33.7); MCHC 32.2 g/dl (32.0-36.0); MEAN CELL VOLUME 82.5 fl (80-96); MEAN PLT VOLUME 7.4 fl (7.5-11.1); PLATELET COUNT 308 K/MM3 (134-434); POTASSIUM 3.9 mmol/L (3.5-5.1); RBC 4.21 M/mm3 (3.60-5.2); SODIUM 141 mmol/L (136-145); WHITE BLOOD COUNT 5.7 K/mm3 (4.0-10.0)
[2020-11-09 14:34] LABS: ANION GAP 4 MMOL/L (8-16); CO2 30 mmol/L (21-32)
[2020-11-09 14:36] LABS: ALBUMIN 3.1 g/dl (3.4-5.0); BLOOD UREA NITROGEN 11.9 mg/dL (7-18)
[2020-11-09 14:37] LABS: CREATININE 0.8 mg/dL (0.55-1.3); SGOT/AST 58 U/L (15-37); SGPT/ALT 92 U/L (13-61)
[2020-11-09 14:39] LABS: BILIRUBIN,TOTAL 0.3 mg/dL (0.2-1); TOT PROT 8.4 g/dl (6.4-8.2)
[2020-11-09 14:40] LABS: ALK PHOS 91 U/L (45-117)
[2020-11-09 14:42] LABS: GLUCOSE,RANDOM 44 mg/dL (74-106)
[2020-11-09] MEDS: chlordiazePOXIDE HCL 25 MG CAPSULE PO SCH ×2 (18:13→22:16)
[2020-11-09] MEDS: THIAMINE HCL 100 MG TABLET (FP) PO SCH (22:16)
[2020-11-09] MEDS: MELATONIN 5 MG TABLETS PO SCH (22:16)
[2020-11-09] MEDS: METHOCARBAMOL 500 MG TABLET PO PRN (22:16)
[2020-11-10] MEDS: hydrOXYzine PAMOATE 25 MG CAPSULE (FP) PO SCH ×5 (05:35→22:22)
[2020-11-10] MEDS: chlordiazePOXIDE HCL 25 MG CAPSULE PO SCH ×4 (05:35→22:21)
[2020-11-10] MEDS ORDERED: METHADONE HCL 5 MG TABLET (FOR DETOX USE ONLY) ONE (09:21)
[2020-11-10] MEDS ORDERED: METHADONE HCL 10 MG TABLET (FOR DETOX USE ONLY) ONE (09:21)
[2020-11-10] MEDS ORDERED: METHADONE (DETOX) 20 MG, METHADONE (DETOX) 5 MG PO ONE (10:00)
[2020-11-10] MEDS: METHOCARBAMOL 500 MG TABLET PO PRN (10:12)
[2020-11-10] MEDS: PRENATAL VITAMINS W/ FOLIC ACID TABLET (FP) PO SCH (10:15)
[2020-11-10] MEDS: THIAMINE HCL 100 MG TABLET (FP) PO SCH (22:21)
[2020-11-10] MEDS: MELATONIN 5 MG TABLETS PO SCH (22:22)
[2020-11-11] MEDS: hydrOXYzine PAMOATE 25 MG CAPSULE (FP) PO SCH ×5 (06:05→22:56)
[2020-11-11] MEDS: chlordiazePOXIDE HCL 25 MG CAPSULE PO SCH ×4 (06:05→22:56)
[2020-11-11] MEDS ORDERED: METHADONE HCL 10 MG TABLET (FOR DETOX USE ONLY) PO ONE (10:00)
[2020-11-11] MEDS: PRENATAL VITAMINS W/ FOLIC ACID TABLET (FP) PO SCH (10:28)
[2020-11-11] MEDS ORDERED: traZODone HCL 50 MG TABLET (FP) PO SCH (22:00)
[2020-11-11] MEDS: MELATONIN 5 MG TABLETS PO SCH (22:56)
[2020-11-11] MEDS: THIAMINE HCL 100 MG TABLET (FP) PO SCH (22:56)
[2020-11-12] MEDS ORDERED: chlordiazePOXIDE HCL 10 MG CAPSULE PO PRN
[2020-11-12] MEDS: hydrOXYzine PAMOATE 25 MG CAPSULE (FP) PO SCH ×2 (06:46→10:26)
[2020-11-12] MEDS: chlordiazePOXIDE HCL 10 MG CAPSULE PO SCH ×2 (06:46→10:26)
[2020-11-12] MEDS ORDERED: METHADONE HCL 5 MG TABLET (FOR DETOX USE ONLY) ONE (08:44)
[2020-11-12] MEDS ORDERED: METHADONE HCL 10 MG TABLET (FOR DETOX USE ONLY) ONE (08:44)
[2020-11-12] MEDS ORDERED: METHADONE (DETOX) 10 MG, METHADONE (DETOX) 5 MG PO ONE (10:00)
[2020-11-12] MEDS: PRENATAL VITAMINS W/ FOLIC ACID TABLET (FP) PO SCH (10:27)
[2020-11-12 12:02] VITALS: BP 93/52; PULSE 76; TEMP 97.5
[2020-11-13] MEDS ORDERED: chlordiazePOXIDE HCL 10 MG CAPSULE PO SCH (05:00)
[2020-11-13] MEDS ORDERED: METHADONE HCL 10 MG TABLET (FOR DETOX USE ONLY) PO ONE (10:00)
[2020-11-14] MEDS ORDERED: chlordiazePOXIDE HCL 10 MG CAPSULE PO ONE (05:00)
[2020-11-14] MEDS ORDERED: METHADONE HCL 5 MG TABLET (FOR DETOX USE ONLY) PO ONE (06:00)
== END 2020-11-12 13:50 | disposition left against medical advice (07) | DRG 770 ==
LOC: YASAS 11:48 → Y6N 13:37
PROVIDERS: ADMIT Allergy & Immunology; ATTEND Allergy & Immunology
PROC: HZ2ZZZZ Detoxification Services for Substance Abuse Treatment (ICD-10-PCS; principal; 2020-11-09)
DX: F11.23 Opioid dependence with withdrawal (principal); F13.230 Sedative, hypnotic or anxiolytic dependence with withdrawal, uncomplicated; F14.20 Cocaine dependence, uncomplicated; F12.20 Cannabis dependence, uncomplicated; F17.210 Nicotine dependence, cigarettes, uncomplicated; F19.280 Other psychoactive substance dependence with psychoactive substance-induced anxiety disorder; F19.282 Other psychoactive substance dependence with psychoactive substance-induced sleep disorder; F19.24 Other psychoactive substance dependence with psychoactive substance-induced mood disorder; B18.2 Chronic viral hepatitis C; Z91.5 Personal history of self-harm; Z59.0 Homelessness; Z56.0 Unemployment, unspecified
CPT/HCPCS: 36415; 80053; 82962; 85027; 86780; 93005; 93010; C9803; U0003